=== PATIENT | female | born 1995 | race Caucasian/White ===

== ENCOUNTER 2024-01-24 09:47 | Outpatient (AMB) | payer OTHER, SELFPAY ==
--- NOTE | 2024-01-24 09:49 | MHC.OFFVIS ---
Vital Signs 01/24/24 09:55 Height 5 ft 3 in Weight 287 lb BMI 50.8 BP 112/82 Blood Pressure Location Rt brachial Position Sitting Pulse 98 Pulse Source Pulse Oximeter Pulse Oximetry (%) 98 Oxygen Delivery Method Room Air Intake Visit Reasons: [id number] Intake Note: Patient presents for migraines. Patient has been having migraines since teen years. has taken Imitrex and topiromate but stopped due to not working or not tolerating. sensitivity to light and sound more to light. Allergies iv morphine Allergy (Severe, Uncoded 01/24/24 09:57) Rash Medication List - Last Reconciled 01/24/24 by DONTA Castellon magnesium oxide 400 mg PO BEDTIME 30 days naratriptan take 1/2 - 1 tab at onset of headache; if no relief may repeat 1 tab after at least 4 hrs; max = 2 tabs/24 hrs orally PRN; 30 days riboflavin (vitamin B2) 400 mg PO DAILY 30 days topiramate 1/2 tab bid x's 1 wk, then 1 tab bid x's 1 week, then 1.5 tabs bid orally 2 times a day; 3 days HPI Comments Details: Right-handed 28-yr-old female presents for new pt evaluation of headache disorder. Pt is accompanied by her stepfather, Mariela. Pt reports she developed migraines in her early pre-teen years. Over time, the headaches have become more frequent and severe. She has not previously seen neurology. PMH and ROS are notable for:? General: Wears glasses. Has had weight fluctuation, has had more recent weight gain. Musculoskeletal disorders or injury: Neck- non-radiating, Back pain w/ right sided sciatica- thought to be d/t fell off a 4th floor stairwell railing down through the stairwell railing. Cramps:randomly during the day, w/wo activity- w/ walking/sitting. History of concussion/head injury: Possible concussion during the fall from the stairwell at age 12. Mood d/o: Anxiety, Depression Respiratory d/o: Asthma- activity induced CV: reports episodes of chest pain. Reports father dies at age 60 of sudden [place], mother has had 2 MIs before age 49. Neuro- tingling in bilateral cheeks through ears- not a/w headaches History of syncope- during a bout of appendicitis. GI d/o: GERD- has GI consult scheduled for Sep. Random nausea. 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 Constipation. Clotting or hematology d/o, Endocrine d/o, metabolic d/o, History of seizure or drop attacks. Lifestyle considerations: Sleep routine: Usual bedtime: 1-2am and wake-up time: 6am Sleep difficulties: Endorses: Snoring, Fatigue, fragmented sleep Restless sleep, Leg Cramps- worse at night. Had a home sleep study in the last [address] [facility]- normal. Caffeine use: a lot - 1 large ice coffee a day, 4 cans of pepsi or coke per afternoon/evening, and drinks a lot of water. Substance use: Alcohol- socially, wine cooler at times, mixed drink at times. 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 Has 2 children- dtr 9, son 6yr old. Headache questionnaire:? Previous work-up: none Types of headache disorders: 2 Typical headache characteristics: Headache 1: Prodrome symptoms: Photophobia Aura: sees white dots/blurry vision, or rarely everything goes black- before/during the attack Pain intensity: moderate-severe Location, quality, characteristics: Diffuse pulsating/throbbing pain, mostly in the right frontal and retro-orbital, but also bitemporal or holocranial Associated symptoms: photophobia, phonophobia, allodynia, nausea, vomiting, not right in space dizziness, lightheadedness, fatigue, cognitive difficulties, activity intolerance, yawning. Bending over exacerbates headache. Postdrome: residual exhaustion Triggers: poor fluid intake, poor sleep, stress, weather changes, altitude changes Time of day: No specific time of day- is prone to waking up w/ headache Duration and Frequency: 5 migraine days per week. How does headache impact your life? Tries not to miss work, but misses family activities. Headache 2: Standing up can cause a sudden sharp left or right occipital pain which will trigger a stabbing headache a/w nausea/lightheadedness. This can last 2.5 days, and then tapers off. Occurs once in a while - every other week or once a month. Current acute medication use/interventions: Nothing Current preventative medication use: Nothing Non-pharmacological interventions: Ice, cold showers, rest, peppermint tea. PFSH Surgical History Hx of appendectomy Family History Mother Myocardial infarct HTN (hypertension) Arthritis Lupus Ovarian ca Father Mental disorder Asthma Maternal Grandfather Myocardial infarct Maternal Grandmother Myocardial infarct Paternal Grandfather Diabetes Alzheimer disease Daughter Autism Social History Alcohol intake: current Patient Tobacco Use Status: Former Tobacco user Physical Exam Vital Signs: Last Vital Signs Pulse 98 01/24/24 09:55 BP 112/82 01/24/24 09:55 Pulse Ox 98 01/24/24 09:55 Oxygen Delivery Method Room Air 01/24/24 09:55 BMI result Body Mass Index 50.8 Const Orientation/consciousness: patient oriented x3 Resp Effort & Inspection: normal respiratory effort and able to speak in complete sentences Neuro Other: Palpable tenderness along the right greater occipital nerve distribution Bilateral posterior cervical tightness. Cervical ROM: full, extensions elicits pain into the right subfrontal region Left Spurling: normal Right Spurling: normal. General: patient oriented x3 Cranial nerves: Yes CN's II-XII intact bilaterally Cognition (Neuro): normal cognition Gait exam (Neuro): Normal gait present Motor exam (neuro): 5/5 motor strength present throughout Deep tendon reflexes (DTR's): Right triceps reflex intensity grade: 2+, Left triceps reflex intensity grade: 2+, Rt Biceps (C5, C6): 2+, Left biceps reflex intensity grade: 2+, Right brachioradialis reflex intensity grade: 2+, Left brachioradialis reflex intensity grade: 2+, Right patellar reflex intensity grade: 2+ and Left patellar reflex intensity grade: 2+ Coordination: [id number] test normal, tandem gait normal and Romberg test negative Pupils: Normal pupillary reactivity/response: bilateral Psych Appearance: grossly normal Mental Status: mental status grossly normal Speech and movement: Normal speech and movement present Affect: normal affect Attitude: cooperative Thought process: Normal thought process present Assessment & Plan Assessment & Plan (1) Worsening headaches: Comment: DDx chronic migraine w/ aura, secondary SR, IIH. Code(s): R51.9 - Headache, unspecified Category: Medical (2) Facial paresthesia: Code(s): R20.2 - Paresthesia of skin Category: Medical (3) Occipital neuralgia: Code(s): M54.81 - Occipital neuralgia Category: Medical (4) Obesity, morbid, BMI 50 or higher: Code(s): E66.01 - Morbid (severe) obesity due to excess calories Category: Medical (5) Cervicalgia: Code(s): M54.2 - Cervicalgia Category: Medical Plan Pt advised to undergo: Labs to assess for secondary etiologies of worsening headaches, cramps. C-spine w/ f/ex/ext x-ray Brain MRI w/wo to assess for secondary intracranial etiologies of worsening headaches and facial paresthesias. Cardiology evaluation- to assess for risk for familial CV dz to guide us in determining future tx decisions. Will request previous sleep studies from [facility]. For overall headache management: Optimize good self-care, including but not limited to maintaining a healthy diet, adequate fluid intake, adequate sleep, and engaging in regular physical activity. Track headaches, especially after any treatment regimen changes. Migraine [employer] is one of many headache tracking apps. Information shared on non-pharmacological interventions which may help to alleviate headache attack burden. For light sensitivity: Patient may benefit from trying blue light filtering glasses, green glasses, green light therapy. For occipital region headache: Start PT Future considerations- ON block For acute migraine headache treatment: Discussed importance of taking acute medications at the first sign of headache, however stressed importance of avoiding acute medication overuse (especially with combined headache medications). Trial Naratriptan 2.5mg prn. Potential adverse effects of triptans, including but not limited to nausea, fatigue, chest tightness/tingling (usually passes within a few minutes), medication overuse headaches. Previous acute migraine medication trials: Triptan: Sumatriptan 50mg- helped some but caused out of this world sensation. Acute migraine medication contraindications: Would avoid DHE until cardiology consult completed d/t family h/o heart dz. For headache prevention medication: Preventative medications should be taken routinely as prescribed for best effect, it may take several weeks for full effect to take effect. Start Riboflavin 400mg qam Start Magnesium 400mg qhs Re-trial Topiramate- start 25mg bid x's 1 wk, then 50mg bid x's 1 wk, then 75mg bid. Potential adverse effects of Topiramate, including but not limited to fatigue, cognitive changes, paresthesias (tingling), vision changes, kidney stones. Previous migraine prevention medication trials: Topiramate 25mg bid- ineffective. Migraine prevention medication contraindications: Caution w/ TCAs d/t family h/o cardiac dz. BBs d/t asthma dx. Pt seen in collaboration w/ Dr Jessica Alejandro. Pt to follow-up in 3-4 months or sooner prn. Addendum: Pt completed initial lab results: results notable for marked elevated ESR 64, CRP > 20, elevated ferritin, mildly elevated WBS 12.6 w/ normal neutrophil count. Spoke to pt, she states she has been feeling more tired and has had a decreased appetite since she was seen here on 01/23. She did resume the Topiramate 25mg bid. Notices that soda is tasting flat .otheriwse, she denies fever, resp s/s, urinary s/s, myalgias. Advised her to adjust topiramate to 50mg qhs- in hopes this helps w/ daytime tiredness. Advised to monitor for any s/s infection- fever, urine/resp s/s, etc. Advised to have additional blood work (JUAN JOSE, RF, hep panel, HIV, RPR, UA/C&S) to further assess lab results concerning for acute vs chronic inflammatory process. Note pt's BMI is > 50, however I do not believe this would account for the marked elevation in ESR/CRP seen. Already has cardiology consult scheduled for Apr 2024. 01/24/24 12:31 WBC 12.6 H RBC 4.38 Hgb 13.0 Hct 40.7 MCV 92.9 MCH 29.7 MCHC 31.9 RDW 13.2 Plt Count 368 Immature Gran % (Auto) 0.3 Neut % (Auto) 66.0 Lymph % (Auto) 28.5 [place] % (Auto) 3.3 Eos % (Auto) 1.7 Baso % (Auto) 0.2 Lymph # (Auto) 3.6 [place] # (Auto) 0.4 Eos # (Auto) 0.2 Baso # (Auto) 0.0 Absolute Neuts (auto) 8.3 Absolute Nucleated RBC 0.000 Nucleated RBC % (auto) 0.0 ESR 64 H Sodium 140 Potassium 3.8 Chloride 103 Anion Gap 13 BUN 9 Creatinine 0.78 Estimated GFR > 60 Random Glucose 113 Estimat Average Glucose 108 Hemoglobin A1c % 5.4 Calcium 10.1 Magnesium 1.9 Iron 53 TIBC 274 % Saturation 19 Unsat Iron Binding 221 Ferritin 160 H Total Bilirubin 0.4 AST 14 ALT 12 Alkaline Phosphatase 134 H Total Creatine Kinase 108 C-React Prot High Sens >20.0 H Total Protein 7.8 Albumin 4.1 Vitamin B12 315 Methylmalonic Acid Pending 25-OH Vitamin D Total Pending Folate 7.5 Homocysteine 8.2 TSH 2.99 Orders: Orders TSH reflex Free T4 01/24/24 D64.9 - Anemia, unspecified, R20.2 - Paresthesia of skin, R25.2 - Cramp and spasm, R51.9 - Headache, unspecified, R53.83 - Other fatigue Vitamin B12 and Folate 01/24/24 D64.9 - Anemia, unspecified, R20.2 - Paresthesia of skin, R25.2 - Cramp and spasm, R51.9 - Headache, unspecified, R53.83 - Other fatigue Methylmalonic Acid 01/24/24 D64.9 - Anemia, unspecified, R20.2 - Paresthesia of skin, R25.2 - Cramp and spasm, R51.9 - Headache, unspecified, R53.83 - Other fatigue Homocysteine 01/24/24 D64.9 - Anemia, unspecified, R20.2 - Paresthesia of skin, R25.2 - Cramp and spasm, R51.9 - Headache, unspecified, R53.83 - Other fatigue Ferritin 01/24/24 D64.9 - Anemia, unspecified, R20.2 - Paresthesia of skin, R25.2 - Cramp and spasm, R51.9 - Headache, unspecified, R53.83 - Other fatigue Magnesium 01/24/24 D64.9 - Anemia, unspecified, R20.2 - Paresthesia of skin, R25.2 - Cramp and spasm, R51.9 - Headache, unspecified, R53.83 - Other fatigue Hemoglobin A1c 01/24/24 E66.01 - Morbid (severe) obesity due to excess calories, R20.2 - Paresthesia of skin, R25.2 - Cramp and spasm, R53.83 - Other fatigue XR cervical spine w flex/ext 01/24/24 M54.2 - Cervicalgia, M54.81 - Occipital neuralgia MR head/brain wo/w con 01/24/24 E66.01 - Morbid (severe) obesity due to excess calories, R20.2 - Paresthesia of skin, R51.9 - Headache, unspecified Syphilis Screen Today D72.829 - Elevated white blood cell count, unspecified, R70.0 - Elevated erythrocyte sedimentation rate, R79.82 - Elevated C-reactive protein (CRP) UA CC w/rflx Micro + Cult Today D72.829 - Elevated white blood cell count, unspecified, R70.0 - Elevated erythrocyte sedimentation rate, R79.82 - Elevated C-reactive protein (CRP) Complete Blood Count Auto Diff 01/24/24 D64.9 - Anemia, unspecified, R20.2 - Paresthesia of skin, R25.2 - Cramp and spasm, R51.9 - Headache, unspecified, R53.83 - Other fatigue Comprehensive Met. Panel 01/24/24 D64.9 - Anemia, unspecified, R20.2 - Paresthesia of skin, R25.2 - Cramp and spasm, R51.9 - Headache, unspecified, R53.83 - Other fatigue IRON PROFILE 01/24/24 D64.9 - Anemia, unspecified, R20.2 - Paresthesia of skin, R25.2 - Cramp and spasm, R51.9 - Headache, unspecified, R53.83 - Other fatigue Erythrocyte Sedimentation Rate 01/24/24 D64.9 - Anemia, unspecified, R20.2 - Paresthesia of skin, R25.2 - Cramp and spasm, R51.9 - Headache, unspecified, R53.83 - Other fatigue Creatine Kinase Total 01/24/24 D64.9 - Anemia, unspecified, R20.2 - Paresthesia of skin, R25.2 - Cramp and spasm, R51.9 - Headache, unspecified, R53.83 - Other fatigue CRP High Sensitivity 01/24/24 D64.9 - Anemia, unspecified, R20.2 - Paresthesia of skin, R25.2 - Cramp and spasm, R51.9 - Headache, unspecified, R53.83 - Other fatigue Vitamin D 25-OH (D2 and D3) 01/24/24 D64.9 - Anemia, unspecified, R20.2 - Paresthesia of skin, R25.2 - Cramp and spasm, R51.9 - Headache, unspecified, R53.83 - Other fatigue PT Evaluation and Treatment 01/24/24 M54.2 - Cervicalgia, M54.81 - Occipital neuralgia Hepatitis A,B,C Profile Today D72.829 - Elevated white blood cell count, unspecified, R70.0 - Elevated erythrocyte sedimentation rate, R79.82 - Elevated C-reactive protein (CRP) HIV Ab/Ag Today D72.829 - Elevated white blood cell count, unspecified, R70.0 - Elevated erythrocyte sedimentation rate, R79.82 - Elevated C-reactive protein (CRP) Referrals Cardiology Referral R07.9 - Chest pain, unspecified, Z82.49 - Family history of ischemic heart disease and other diseases of the circulatory system Medications: New naratriptan take 1/2 - 1 tab at onset of headache; if no relief may repeat 1 tab after at least 4 hrs; max = 2 tabs/24 hrs orally PRN; 30 days 12 tabs 6RF migraine headache riboflavin (vitamin B2) 400 mg PO DAILY 30 days 30 tabs 6RF magnesium oxide may hold for loose stools 400 mg PO BEDTIME 30 days 30 tabs 6RF topiramate 1/2 tab bid x's 1 wk, then 1 tab bid x's 1 week, then 1.5 tabs bid orally 2 times a day; 3 days 90 tabs 6RF Coding Level of Care Code New Pt Level 4 (78185) Diagnoses Worsening headaches R51.9 Facial paresthesia R20.2 Occipital neuralgia M54.81 Obesity, morbid, BMI 50 or higher E66.01 Cervicalgia M54.2
[2024-01-24 09:55] VITALS: BP 112/82; PULSE 98; O2SAT 98; BMI 50.8
== END 2024-01-24 11:26 | disposition home or self-care (01) ==
PROVIDERS: PCP Family Medicine; Visit Provider Nurse Practitioner Family
DX: R51.9 Headache, unspecified (principal); R20.2 Paresthesia of skin; M54.81 Occipital neuralgia; E66.01 Morbid (severe) obesity due to excess calories; M54.2 Cervicalgia
CPT/HCPCS: 99204

== ENCOUNTER 2024-01-24 09:47 | Outpatient (REF) | payer OTHER, SELFPAY ==
[2024-01-24 12:33] LABS: MANUAL DIFF FLAG NO
[2024-01-24 13:56] LABS: Basophils Percent Auto 0.2 % (0-2); Eosinophils Absolute Auto 0.2 X10*3/uL (0.0-0.4); Eosinophils Percent Auto 1.7 % (0-4); Hematocrit 40.7 % (37.0-47.0); Imm Gran Abs Auto 0.04 X10*3/uL (0.00-0.03); Imm Gran Pct Auto 0.3 % (0.0-0.4); Lymphocytes Absolute Auto 3.6 X10*3/uL (1.2-4.9); Lymphocytes Percent Auto 28.5 % (20-40); Mean Corpuscular HGB Conc 31.9 g/dl (31.0-35.0); Mean Corpuscular Hemoglobin 29.7 pg (27.0-33.0); Mean Corpuscular Volume 92.9 fL (80.0-98.0); Mean Platelet Volume 11.2 fL (9.4-12.3); Monocytes Absolute Auto 0.4 X10*3/uL (0.1-1.2); Monocytes Percent Auto 3.3 % (2-11); Neutrophils Absolute Auto 8.3 x10*3/uL (2.0-8.3); Platelet Count 368 X10*3/uL (160-400); Red Blood Count 4.38 X10*6/uL (4.20-5.50); Red Cell Distribution Width 13.2 % (11.0-16.0); White Blood Count 12.6 X10*3/uL (4.8-10.8)
[2024-01-24 14:33] LABS: Estimated Average Glucose 108 mg/dL; Hemoglobin A1c % 5.4 % (<6.0)
[2024-01-24 14:35] LABS: Alanine Aminotransferase 12 U/L (0-31); Albumin Level 4.1 g/dL (3.5-5.0); Alkaline Phosphatase 134 U/L (39-117); Anion Gap 13 (12-20); Aspartate Amino Transferase 14 U/L (5-31); Bilirubin Total 0.4 mg/dL (0.0-1.0); Blood Urea Nitrogen 9 mg/dL (9-16); Calcium 10.1 mg/dL (8.4-10.2); Carbon Dioxide 28 mmol/L (22-29); Chloride 103 mmol/L (96-108); Estimated Glomerular Filt Rate > 60; Glucose Random 113 mg/dL (60-115); Iron 53 mcg/dL (30-160); Magnesium 1.9 mg/dL (1.6-2.6); Percent Iron Saturation 19 % (15-50); Potassium 3.8 mmol/L (3.3-5.1); Sodium 140 mmol/L (135-145); Total Iron Binding Capacity 274 mcg/dL (228-428); Total Protein 7.8 g/dL (6.5-8.0); Unsaturated Iron Binding 221 ug/dL
[2024-01-24 14:41] LABS: Erythrocyte Sedimentation Rate 64 MM/HR (0-20)
[2024-01-24 14:58] LABS: Ferritin 160 ng/mL (10-122); TSH reflex Free T4 2.99 uIU/mL (0.32-4.0)
[2024-01-24 15:05] LABS: Folate 7.5 ng/mL (> or = 4.0); Vitamin B12 315 pg/mL (200-900)
[2024-01-25 14:33] LABS: CRP High Sensitivity >20.0 mg/L
[2024-01-25 18:33] LABS: Homocysteine 8.2 umol/L (<10.4)
[2024-01-29 15:43] LABS: Vitamin D 25-OH, D2 <4 ng/mL; Vitamin D 25-OH, D3 21 ng/mL; Vitamin D 25-OH, Total 21 ng/mL (30-100)
[2024-02-01 06:28] LABS: Methylmalonic Acid 125 nmol/L (55-335)
== END 2024-01-24 09:48 | disposition home or self-care (01) ==
LOC: HO.LAB 09:47
PROVIDERS: PCP Family Medicine; Visit Provider Nurse Practitioner Family
DX: D64.9 Anemia, unspecified (principal); R51.9 Headache, unspecified; R20.2 Paresthesia of skin; M54.81 Occipital neuralgia; E66.01 Morbid (severe) obesity due to excess calories; M54.2 Cervicalgia; D72.829 Elevated white blood cell count, unspecified; R70.0 Elevated erythrocyte sedimentation rate; R79.82 Elevated C-reactive protein (CRP); R07.9 Chest pain, unspecified; Z82.49 Family history of ischemic heart disease and other diseases of the circulatory system
CPT/HCPCS: 36415; 80053; 82306; 82550; 82607; 82728; 82746; 83036; 83090; 83540; 83735; 83921; 84443; 85025; 85652; 86141; 99202

== ENCOUNTER 2024-01-28 07:17 | Outpatient (REF) | payer OTHER, SELFPAY | END 2024-01-28 07:18 | disposition home or self-care (01) | LOC: HO.LAB 07:17 | PROVIDERS: Visit Provider Nurse Practitioner Family | DX: Z13.89 Encounter for screening for other disorder (principal) ==

== ENCOUNTER 2024-01-30 07:22 | Outpatient (REF) | payer OTHER, SELFPAY ==
[2024-01-30 07:34] LABS: MANUAL DIFF FLAG NO
[2024-01-30 08:02] LABS: Basophils Percent Auto 0.3 % (0-2); Eosinophils Absolute Auto 0.2 X10*3/uL (0.0-0.4); Eosinophils Percent Auto 1.6 % (0-4); Hematocrit 41.5 % (37.0-47.0); Hemoglobin 13.2 g/dl (12.0-16.0); Imm Gran Abs Auto 0.05 X10*3/uL (0.00-0.03); Imm Gran Pct Auto 0.4 % (0.0-0.4); Lymphocytes Absolute Auto 3.5 X10*3/uL (1.2-4.9); Lymphocytes Percent Auto 30.2 % (20-40); Mean Corpuscular HGB Conc 31.8 g/dl (31.0-35.0); Mean Corpuscular Hemoglobin 29.6 pg (27.0-33.0); Mean Platelet Volume 11.2 fL (9.4-12.3); Monocytes Absolute Auto 0.7 X10*3/uL (0.1-1.2); Monocytes Percent Auto 5.9 % (2-11); Neutrophils Absolute Auto 7.1 x10*3/uL (2.0-8.3); Neutrophils Percent Auto 61.6 % (45-73); Platelet Count 343 X10*3/uL (160-400); Red Blood Count 4.46 X10*6/uL (4.20-5.50); Red Cell Distribution Width 13.3 % (11.0-16.0); White Blood Count 11.5 X10*3/uL (4.8-10.8)
[2024-01-30 08:34] LABS: Rheumatoid Factor < 13.0 IU/mL (<15.0)
[2024-01-30 08:43] LABS: Syphilis Screen Nonreactive (Nonreactive)
[2024-01-30 08:46] LABS: HBS Num1 369.75 mIU/mL (0-7.99); HBc Num1 0.14 S/CO (0.00-0.79); HBsAGNum1 0.24 S/CO (0.00-0.99); HIV AB/AG Nonreactive (Nonreactive); HIV Num 1 0.05 S/CO (0.00-0.99); Hepatitis A Antibody IgM 0.16 Index (0-0.79); Hepatitis B Core Antibody Nonreactive (Nonreactive); Hepatitis B Surface Antigen Negative (Negative); ~HepC Num1 0.05 S/CO (0.00-0.79); ~Hepatitis A Antibody IgM Nonreactive (Nonreactive); ~Hepatitis B Surface Antibody REACTIVE (Nonreactive); ~Hepatitis C Antibody Nonreactive (Nonreactive)
[2024-02-06 14:08] LABS: Anti Nuclear Antibody Screen POSITIVE (NEGATIVE)
== END 2024-01-30 07:23 | disposition home or self-care (01) ==
LOC: HO.LAB 07:22
PROVIDERS: PCP Family Medicine; Visit Provider Nurse Practitioner Family
DX: R70.0 Elevated erythrocyte sedimentation rate (principal); D72.829 Elevated white blood cell count, unspecified; R79.82 Elevated C-reactive protein (CRP)
CPT/HCPCS: 36415; 85025; 86038; 86039; 86431; 86704; 86706; 86709; 86780; 86803; 87340; 87389

== ENCOUNTER 2024-03-29 14:39 | Outpatient (REF) | payer OTHER, SELFPAY ==
--- NOTE | ~2024-03-29 | MR_ITS ---
EXAMINATION: MR BRAIN WITHOUT AND WITH CONTRAST CLINICAL INFORMATION: Paresthesia of the skin. COMPARISON: No relevant prior imaging. TECHNIQUE: Multiplanar MR imaging of the brain was performed without and with contrast. A total of 10 mL Gadavist was utilized for this examination. FINDINGS: Postcontrast images reveal no abnormal intracranial mass or enhancement. There is no intracranial mass effect or midline shift. Lateral and third ventricles are normal. No hydrocephalus. Midline structures including the cervicomedullary junction are normal. No acute bone marrow signal changes. There is no acute territorial infarct. No pathological magnetic susceptibility artifact. Intracranial vascular flow voids are maintained. There are bilateral mastoid effusions. Mild paranasal sinus disease primarily affecting the ethmoid air cells and sphenoid sinus. Globes and orbits are symmetric. MR/MR head/brain wo/w con IMPRESSION: Normal brain MRI. Electronically signed by: Johnathan Carty MD 04/20/2024 03:56 PM EDT
--- NOTE | ~2024-03-29 | XR_ITS ---
EXAMINATION: XR CERVICAL SPINE CLINICAL INFORMATION: Neck pain COMPARISON: None available. TECHNIQUE: 8 views of the cervical spine, inclusive of flexion and extension views, were obtained. FINDINGS: Limited visualization of C7 due to overlying bony and soft tissue structures. Alignment maintained on flexion and extension views. Cervical disc space heights are preserved. Mild spondylosis in the lower cervical spine. XR/XR cervical spine w flex/ext IMPRESSION: Mild spondylosis in the lower cervical spine. Electronically signed by: Oriana Ryan MD 04/24/2024 09:06 AM EDT
[2024-03-29] MEDS: gadobutroL 10 ML VIAL IVPUSH (16:18)
== END 2024-03-29 14:40 | disposition home or self-care (01) ==
LOC: HO.MRI 14:39
PROVIDERS: PCP Family Medicine; Visit Provider Nurse Practitioner Family
DX: M54.2 Cervicalgia (principal); M54.81 Occipital neuralgia; R20.2 Paresthesia of skin; R51.9 Headache, unspecified; E66.01 Morbid (severe) obesity due to excess calories
CPT/HCPCS: 70553; 72052; A9585

== ENCOUNTER 2024-05-02 14:53 | Outpatient (REF) | payer OTHER, SELFPAY ==
[2024-05-02 17:11] LABS: Cholesterol 173 mg/dL (<200); HDL Cholesterol 35 mg/dL (>40); LDL Cholesterol Calculated 118 mg/dL (<100); Triglycerides 104 mg/dL (<150)
[2024-05-04 00:28] LABS: LDL Cholesterol Direct 120 mg/dL (<100)
== END 2024-05-02 14:54 | disposition home or self-care (01) ==
LOC: HO.LAB 14:53
PROVIDERS: PCP Family Medicine; Visit Provider Internal Medicine
DX: R07.9 Chest pain, unspecified (principal); R70.0 Elevated erythrocyte sedimentation rate; R79.82 Elevated C-reactive protein (CRP); E78.2 Mixed hyperlipidemia; Z82.49 Family history of ischemic heart disease and other diseases of the circulatory system
CPT/HCPCS: 36415; 80061; 83721; 93005; 99202

== ENCOUNTER 2024-05-02 14:53 | Outpatient (AMB) | payer OTHER, SELFPAY ==
[2024-05-02 14:57] VITALS: BP 118/68; PULSE 97; BMI 50.0
--- NOTE | 2024-05-02 14:57 | MHC.OFFVIS ---
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 Allergies Seasonal Allergies Allergy (Severe, Verified 05/02/24 15:09) Hives iv morphine Allergy (Severe, Uncoded 01/24/24 09:57) Rash Medication List - Last Reconciled 05/02/24 by Alfonzo Andersen MD cholecalciferol (vitamin D3) 25 mcg PO DAILY 30 days magnesium oxide 400 mg PO BEDTIME 30 days naratriptan take 1/2 - 1 tab at onset of headache; if no relief may repeat 1 tab after at least 4 hrs; max = 2 tabs/24 hrs orally PRN; 30 days riboflavin (vitamin B2) 400 mg PO DAILY 30 days topiramate 1/2 tab bid x's 1 wk, then 1 tab bid x's 1 week, then 1.5 tabs bid orally 2 times a day; 3 days HPI Comments Details: Padma is here for consultation because of family history. She states that her mother had a myocardial infarction before she was 50 years old and father also had a myocardial infarction in his 50s. Hence she is concerned about it. Patient herself does not have any known cardiac issues. She is overweight. She has been this way for a long time. Apparently, she managed to lose weight but then she gained a lot of it back. She gets random chest pains in no specific patterns. Can happen any time. Nonexertional. Even when she is sitting and relaxed, she can feel some sharp chest pains. Hence seems noncardiac. She has elevated CRP, ESR as well as positive JUAN JOSE and hence going to see Rheumatology soon. Apparently mother has lupus. Patient herself does not have any rheumatological diagnosis as yet. ON LICENSE OF [facility] Medical History (Updated 05/02/24 @ 16:41 by Alfonzo Andersen MD) Acid reflux Asthma Migraine Surgical History Hx of appendectomy Family History Mother Myocardial infarct HTN (hypertension) Arthritis Lupus Ovarian ca Father Mental disorder Asthma Maternal Grandfather Myocardial infarct Maternal Grandmother Myocardial infarct Paternal Grandfather Diabetes Alzheimer disease Daughter Autism Social History (Updated 05/02/24 @ 15:13 by Jana Mccullough) Alcohol intake: current Alcohol intake frequency: holidays/special occasions only Patient Tobacco Use Status: Former Tobacco user Review of Systems Const Denies weakness ENT Denies dizziness Card Reports chest pain, Reports chest pain with activity, Denies syncope, Denies rapid heart rate, Denies pedal edema, Denies edema, Denies leg edema, Denies lightheadedness, Reports palpitations, Denies dyspnea, Denies dyspnea on exertion and Denies orthopnea Resp Denies cough, Denies dyspnea and Denies dyspnea on exertion GI Denies hematochezia and Denies change in stool character Musc Denies abnormal gait, Denies muscle cramps, Denies muscle weakness, Denies numbness, Denies radiating pain into limb and Denies tingling Neuro Denies abnormal gait, Denies dizziness, Denies syncope, Denies numbness, Denies tingling and Denies weakness Endo Reports palpitations Physical Exam Vital Signs: Last Vital Signs Pulse 97 05/02/24 14:57 BP 118/68 05/02/24 14:57 BMI result Body Mass Index 50.0 Const General: comfortable and no acute distress Orientation/consciousness: patient oriented x3 HEENT Other: Unremarkable Head: Yes normal to inspection Neck Neck: Yes normal visual inspection Chest Chest palpation & inspection: normal inspection of the chest Resp Auscultation: clear to auscultation bilaterally Cardio Palpation: normal PMI Heart sounds: S1 normal heart sound present, S2 normal heart sound present, no gallops, no murmurs and no rubs GI Palpation (GI): Soft to palpation Back/Spine/Pelvis Other: unremarkable Skin General skin exam: no rashes or lesions noted Neuro General: patient oriented x3 Extrem General: Yes normal to inspection Psych Mental Status: mental status grossly normal Office Procedures EKG Details: EKG with underlying sinus rhythm at 97/Min; nonspecific inferior wall changes; [place] [id number], Complete Assessment & Plan Assessment & Plan (1) Chest pain: Code(s): R07.9 - Chest pain, unspecified Category: Medical (2) Family history of coronary artery disease: Code(s): Z82.49 - Family history of ischemic heart disease and other diseases of the circulatory system Category: Medical (3) Elevated erythrocyte sedimentation rate: Code(s): R70.0 - Elevated erythrocyte sedimentation rate Category: Medical (4) Elevated C-reactive protein (CRP): Code(s): R79.82 - Elevated C-reactive protein (CRP) Category: Medical Plan Atypical sounding chest pain, obesity, positive family history of premature CAD, elevated inflammatory markers as well as positive JUAN JOSE. Chest pain could be musculoskeletal in nature. Pericardial etiology possible from inflammation. We will check an echocardiogram for any effusion. It does not sound anginal. With obesity as well as positive family history, she is at increased risk for coronary issues in the future. We discussed about this today. Main strategy for this would be weight loss. With regard to further workup, we discussed about calcium scoring CT scan. However, patient states that she would rather just lose weight for now and hold off on any testing. In that instance, at least get baseline lipid profile. Based on findings, possible statin use. We will see her back after testing. Orders: Orders Lipid Panel Today E78.5 - Hyperlipidemia, unspecified LDL Cholesterol Direct Today E78.2 - Mixed hyperlipidemia CA echo transthoracic complete Today R07.9 - Chest pain, unspecified Coding Level of Care Code New Pt Level 3 (09186) Diagnoses Chest pain R07.9 Family history of coronary artery disease Z82.49 Elevated erythrocyte sedimentation rate R70.0 Elevated C-reactive protein (CRP) R79.82 CPT Codes EKG - CPT: 11172-[id number], Complete ([id number])
== END 2024-05-02 15:33 | disposition home or self-care (01) ==
PROVIDERS: PCP Family Medicine; Visit Provider Internal Medicine
DX: R07.9 Chest pain, unspecified (principal); Z82.49 Family history of ischemic heart disease and other diseases of the circulatory system; R70.0 Elevated erythrocyte sedimentation rate; R79.82 Elevated C-reactive protein (CRP)
CPT/HCPCS: 93010; 99203

== ENCOUNTER 2024-05-08 12:35 | Outpatient (REF) | payer OTHER, SELFPAY ==
[2024-05-08 14:08] LABS: Appearance Urine Cloudy; Color Urine Yellow; Glucose Urine UA Negative (Negative); Leukocyte Esterase Urine Small (1+) (Negative); Nitrite Urine Negative (Negative); PH 5.5 (5.0-9.0); Specific Gravity - Urine 1.025 (1.005-1.025); UMIC TRIGGER UA YES; Urine Blood Negative (Negative); Urine Ketones Negative (Negative); Urine Protein Negative (Neg-Trace)
[2024-05-08 14:13] LABS: Bacteria Urine 3+ (None Seen); Hyaline Casts Urine 0-2 /LPF (0-2); RBC Urine 0-2 /HPF (0-2)
[2024-05-08 14:22] LABS: C Reactive Protein 3.44 mg/dL (< or = 0.50)
[2024-05-08 14:25] LABS: Creatinine Urine 198.73 mg/dL; Protein/Creatinine Ratio, Ur 0.06 (<0.2); Total Protein Urine Random 12 mg/dL (<12)
[2024-05-08 14:39] LABS: Erythrocyte Sedimentation Rate 82 MM/HR (0-20)
[2024-05-10 14:28] LABS: Prot Elec - Albumin 3.7 g/dL (3.8-4.8); Prot Elec - Alpha1 0.3 g/dL (0.2-0.3); Prot Elec - Alpha2 1.1 g/dL (0.5-0.9); Prot Elec - Beta 1 0.5 g/dL (0.4-0.6); Prot Elec - Beta 2 0.6 g/dL (0.2-0.5); Prot Elec - Gamma 1.4 g/dL (0.8-1.7); Prot Elec - Total Protein 7.5 g/dL (6.1-8.1)
[2024-05-10 19:44] LABS: Cardiolipin IgG Ab <2.0 GPL-U/mL; Cardiolipin IgM Ab 4.1 MPL-U/mL
[2024-05-11 11:44] LABS: Complement C3 174 mg/dL (83-193)
[2024-05-12 13:43] LABS: Anti DNA DS Antibody 1 IU/mL; Antibody to SS-A Antigen <1.0 NEG AI (<1.0 NEG); Antibody to SS-B Antigen <1.0 NEG AI (<1.0 NEG); SM/Ribonucleoprotein Ab <1.0 NEG AI (<1.0 NEG); Smith Protein <1.0 NEG AI (<1.0 NEG)
[2024-05-13 06:59] LABS: Hexagonal Phase Neutralization Negative (Negative); PTT (LAC) Screen 47 sec (<=40)
[2024-05-14 05:29] LABS: DNAds, Crithidia Antibody Negative (Negative)
[2024-05-14 14:29] LABS: IgA 328 mg/dL (47-310); IgG 1528 mg/dL (600-1640); IgM 144 mg/dL (50-300)
[2024-05-15 21:49] LABS: Beta-2 Glycoprotein IgA <2.0 U/mL (<20.0); Beta-2 Glycoprotein IgG <2.0 U/mL (<20.0); Beta-2 Glycoprotein IgM 4.5 U/mL (<20.0)
[2024-05-17 09:44] LABS: Cyclic Citrullinated Peptide <16 UNITS
== END 2024-05-08 12:36 | disposition home or self-care (01) ==
LOC: HO.LAB 12:35
PROVIDERS: PCP Family Medicine; Visit Provider Student in an Organized Health Care Education/Training Program
DX: D68.61 Antiphospholipid syndrome (principal); M32.9 Systemic lupus erythematosus, unspecified; M25.50 Pain in unspecified joint; R76.8 Other specified abnormal immunological findings in serum
CPT/HCPCS: 36415; 81001; 82570; 82784; 84156; 84165; 85597; 85598; 85613; 85652; 85730; 86140; 86146; 86147; 86160; 86200; 86225; 86235; 86255; 86334; 99202

== ENCOUNTER 2024-05-08 12:35 | Outpatient (AMB) | payer OTHER, SELFPAY ==
--- NOTE | 2024-05-08 12:39 | A.OFFVIS_ITS ---
Vital Signs 05/08/24 12:47 Height 5 ft 3 in Weight 281 lb 12.012 oz BMI 49.9 BP 112/68 Blood Pressure Location Rt radial Position Sitting Pulse 96 Pulse Source Pulse Oximeter Pulse Oximetry (%) 99 Oxygen Delivery Method Room Air Intake Visit Reasons: abnormal lab Intake Note: Patient presents for abnormal lab. Allergies Seasonal Allergies Allergy (Severe, Verified 05/08/24 12:42) Hives iv morphine Allergy (Severe, Uncoded 01/24/24 09:57) Rash Medication List - Last Reconciled 05/08/24 by Martin Terry MD acetaminophen ER 650 mg PO TID cetirizine 10 mg PO DAILY chlorhexidine gluconate 0.12% PO cholecalciferol (vitamin D3) 25 mcg PO DAILY 30 days famotidine 20 mg PO BID ibuprofen 800 mg PO TID ipratropium bromide intranasal magnesium oxide 400 mg PO BEDTIME 30 days multivitamin (Daily Multi-Vitamin tablet) 1 tab PO DAILY naratriptan take 1/2 - 1 tab at onset of headache; if no relief may repeat 1 tab after at least 4 hrs; max = 2 tabs/24 hrs orally PRN; 30 days omega 9-jgx-blh-fish oil 1,200 (144-216) mg (Fish Oil) caps PO pantoprazole 40 mg PO DAILY riboflavin (vitamin B2) 400 mg PO DAILY 30 days topiramate 1/2 tab bid x's 1 wk, then 1 tab bid x's 1 week, then 1.5 tabs bid orally 2 times a day; 3 days HPI Comments Details: This is a 28-year-old female who presents for evaluation of positive JUAN JOSE and elevated ESR. This was ordered in the context of migraines. She states that she has had migraines for more than 10 years but they have been more persistent recently. She states that her mother has SLE and fibromyalgia. She states that she has diffuse pain everywhere especially of her hands and feet and associated with tingling and numbness. Patient states that she snores at night. She had a sleep study about 3 years ago, at that time she was around 220 lb. 60 lb less than today. She denies any specific skin rashes. She has not noticed any significant joint swelling. Denies any blood or froth in urine. She had 2 pregnancies in total, 2 children, no abortions or miscarriages. Denies any history of DVT/PE. [facility] Medical History Acid reflux Asthma Migraine Surgical History Hx of appendectomy Family History Mother Myocardial infarct HTN (hypertension) Arthritis Lupus Ovarian ca Father Mental disorder Asthma Maternal Grandfather Myocardial infarct Maternal Grandmother Myocardial infarct Paternal Grandfather Diabetes Alzheimer disease Daughter Autism Social History Alcohol intake: current Alcohol intake frequency: holidays/special occasions only Patient Tobacco Use Status: Former Tobacco user Female Reproductive History Menstrual Total pregnancies: 2 Full term: 2 Review of Systems Const Reports chills, Denies fever(s) and Reports weight gain Eyes Reports dry eyes ENT Reports dry mouth Musc Reports myalgias, Reports arthralgias, Denies joint swelling, Reports numbness and Reports tingling Neuro Reports numbness and Reports tingling Physical Exam Vital Signs: Last Vital Signs Pulse 96 05/08/24 12:47 BP 112/68 05/08/24 12:47 Pulse Ox 99 05/08/24 12:47 Oxygen Delivery Method Room Air 05/08/24 12:47 BMI result Body Mass Index 49.9 Const General: cooperative, healthy appearing and comfortable Nutritional Appearance: obese morbidly obese Orientation/consciousness: patient oriented x3 Limitations: no limitations HEENT Head: Yes normocephalic and Yes atraumatic Mouth: moist mucous membranes Resp Effort & Inspection: normal respiratory effort and able to speak in complete sentences Skin Other: Some hyperpigmentation on her nape Neuro General: patient oriented x3 Extrem Other: Few tender joints in the hands including wrists, MCPs, PIP, DIPs. In the random distribution Multiple fibromyalgia tender points Normal nailfold capillaroscopy Assessment & Plan Assessment & Plan (1) Positive JUAN JOSE (antinuclear antibody): Code(s): R76.8 - Other specified abnormal immunological findings in serum Category: Medical Plan: This is a 28-year-old female who presents for evaluation of a positive JUAN JOSE and elevated ESR in the context of worsening migraines. Per patient, her Mother has SLE and fibromyalgia. On exam today patient has fibromyalgia, however given her young age, positive JUAN JOSE, ongoing migraines and positive family history I will order blood work to screen for underlying autoimmune rheumatic disease. Follow- up in 4-6 weeks Plan I spent 46 minutes reviewing patient's chart, evaluating patient, ordering diagnostic workup, counseling patient and documenting in the chart Orders: Orders Beta-2 Glycoprotein Antibody Today D68.61 - Antiphospholipid syndrome Lupus Anticoagulant Panel Today D68.61 - Antiphospholipid syndrome Anti Extractable Nuclear Ag Today M32.9 - Systemic lupus erythematosus, unspecified Complement C3 Today M32.9 - Systemic lupus erythematosus, unspecified DNA Double Stranded-Crithidia Today M32.9 - Systemic lupus erythematosus, unspecified Protein Creatinine Ratio, Ur Today M32.9 - Systemic lupus erythematosus, unspecified Protein Electrophoresis, Serum Today M32.9 - Systemic lupus erythematosus, unspecified Cyclic Citrullinated Peptide Today M25.50 - Pain in unspecified joint Cardiolipin Antibodies Today D68.61 - Antiphospholipid syndrome Anti DNA DS Antibody Today M32.9 - Systemic lupus erythematosus, unspecified Complement C4 Today M32.9 - Systemic lupus erythematosus, unspecified C Reactive Protein Today M32.9 - Systemic lupus erythematosus, unspecified Erythrocyte Sedimentation Rate Today M32.9 - Systemic lupus erythematosus, unspecified Sjogren's Antibodies Today M32.9 - Systemic lupus erythematosus, unspecified UA w Microscopic Today M32.9 - Systemic lupus erythematosus, unspecified Immunofixation Pnl, Serum Today M32.9 - Systemic lupus erythematosus, unspecified Coding Level of Care Code New Pt Level 4 (43947) Diagnoses Positive JUAN JOSE (antinuclear antibody) R76.8
[2024-05-08 12:47] VITALS: BP 112/68; PULSE 96; O2SAT 99; BMI 49.9
== END 2024-05-08 13:04 | disposition home or self-care (01) ==
LOC: HO.RHE 12:36
PROVIDERS: PCP Family Medicine; Visit Provider Student in an Organized Health Care Education/Training Program
DX: R76.8 Other specified abnormal immunological findings in serum (principal)
CPT/HCPCS: 99204

== ENCOUNTER → 2024-05-30 12:25 | Outpatient (REF) | payer OTHER, SELFPAY ==
--- NOTE | 2024-05-30 12:29 | CA_ITS ---
Transthoracic Echocardiogram Patient (Last, First, Middle): Padma Larson, Gender: Female Date of : 1995 Age: 28 Procedure Date: 05/30/2024 Procedure Type: Transthoracic Echocardiogram Location: OP Height: 160. cm Weight: 127.46 kg BSA: 2.23 m2 Heart Rate: bpm BP: 112 / 68 mmHg Entry Level Mechanical Engineer: SIMA Robledo MD: Alfonzo Andersen MD Data Center Manager: Mitch Holt MD Symptoms: R07.9 - Chest pain, unspecified Study Quality: Fair/Contrast ECG Rhythm: Sinus Conclusions: - Essentially normal study Findings Procedure Information Contrast agent, definity, is being given per protocol without apparent complications. Left Ventricle Normal left ventricular size, thickness, and systolic function. The visually estimated ejection fraction is between 55-60%. Spectral Doppler is indicative of a normal filling pattern. Right Ventricle Normal right ventricular cavity size and systolic function. Atria The left atrium is normal in size. There is no evidence of interatrial shunt. The right atrium was not well visualized. Aortic Valve The aortic valve structure and function is likely normal. There is no aortic valve stenosis. There is no aortic valve regurgitation. Mitral Valve Likely normal mitral valve structure and function. There is no mitral valve regurgitation. There is no mitral valve stenosis. Pulmonic Valve The pulmonic valve was not well visualized. Tricuspid Valve Likely normal tricuspid valve structure and function. There is trace tricuspid valve regurgitation. The right ventricular systolic pressure is normal. The right ventricular systolic pressure is 20 mmHg. Normal right atrial pressure. There is no evidence of pulmonary hypertension. Great Vessels All visible segments of the aorta are normal in size. The pulmonary artery was not well visualized. Venous The inferior vena cava is normal in size and collapses greater than 50% with inspiration. Pericardium/Pleural There is no evidence of pericardial effusion. Prior Study Comparison No prior study available for comparison. Measurements 2D Linear Measurements IVSd: 0.95 0.6-0.9/0.6-1.0 cm LVIDd: 4.41 3.9-5.3/4.2-5.9 cm LVIDd Index: 1.98 2.4-3.2/2.2-3.1 cm/m2 LVIDs: 2.67 2.0-3.6 cm LVPWd: 0.97 0.7-1.1 cm Ao Root: 2.80 2.1-3.5 cm LA Diam: 4.00 2.7-3.8/3.0-4.0 cm LAIDs Index: 1.79 1.5-2.3 cm/m2 LV Mass: 173.71 67-162/88-224 g LV Mass Index: 77.90 43-95/49-115 g/m2 LVOT Diam: 1.90 3.0+(-)1.3 cm 2D Systolic Function EF 4C: 60.00 >55% EF 2C: 58.40 >55% EF BiP: 58.70 >55% Mitral Valve MV Pk E: 0.98 MV PK A: 0.73 MV Decel Time: 243.00 E/A: 1.30 E'Lateral: 12.20 E'Medial: 10.80 E/E' Med: 9.00 E/E' Lat: 8.00 PHT: 71.00 MVA PHT: 3.10 Decel Cocke: 4.01 Aortic Valve AoV Pk Chad: 1.58 AoV Mn Chad: 1.03 AoV VTI: 0.31 AoV Pk Grad: 10.00 Aov Mn Grad: 5.00 JUNIE Cont.VTI: 1.92 LVOT LVOT Pk Chad: 1.04 LVOT Mn Chad: 0.76 LVOT VTI: 0.21 LVOT Pk Grad: 4.00 LVOT Mn Grad: 3.00 LVOT Diam: 1.90 LVOT Area: 2.84 Diastolic Function MV Pk E: 0.98 MV Pk A: 0.73 E/A: 1.30 E'Medial: 10.80 E/E' Med: 9.00 E' Laterial: 12.20 E/E' Lat: 8.00 Right Ventricle TAPSE (mm): 22.60 TVS' Chad: 13.80 Tricuspid Valve TR Pk Chad: 2.05 TR Pk Grad: 17.00 RA Press: 3.00 RVSP: 20.00 Great Vessels Aorta Ao Root-2D: 2.80 2.0-3.7 cm Ao Asc: 3.00 2.1-3.4 cm Ao Arch: 2.50 Updated in Other Vendor System with Status of Final Mitch Holt MD electronically signed on 05/31/2024 3:06:14 PM with status of Final
[2024-05-30 13:13] LABS: MANUAL DIFF FLAG NO
[2024-05-30 13:51] LABS: Basophils Percent Auto 0.2 % (0-2); Eosinophils Absolute Auto 0.3 X10*3/uL (0.0-0.4); Eosinophils Percent Auto 2.2 % (0-4); Hematocrit 38.5 % (37.0-47.0); Hemoglobin 12.4 g/dl (12.0-16.0); Imm Gran Abs Auto 0.05 X10*3/uL (0.00-0.03); Imm Gran Pct Auto 0.4 % (0.0-0.4); Lymphocytes Absolute Auto 4.3 X10*3/uL (1.2-4.9); Lymphocytes Percent Auto 33.9 % (20-40); Mean Corpuscular HGB Conc 32.2 g/dl (31.0-35.0); Mean Corpuscular Hemoglobin 29.2 pg (27.0-33.0); Mean Corpuscular Volume 90.8 fL (80.0-98.0); Monocytes Absolute Auto 0.6 X10*3/uL (0.1-1.2); Monocytes Percent Auto 4.6 % (2-11); Neutrophils Absolute Auto 7.4 x10*3/uL (2.0-8.3); Neutrophils Percent Auto 58.7 % (45-73); Platelet Count 350 X10*3/uL (160-400); Red Blood Count 4.24 X10*6/uL (4.20-5.50); Red Cell Distribution Width 13.6 % (11.0-16.0); White Blood Count 12.7 X10*3/uL (4.8-10.8)
[2024-05-30 14:15] LABS: Alanine Aminotransferase 13 U/L (0-31); Albumin Level 3.8 g/dL (3.5-5.0); Alkaline Phosphatase 122 U/L (39-117); Anion Gap 9 (12-20); Aspartate Amino Transferase 18 U/L (5-31); Bilirubin Total 0.1 mg/dL (0.0-1.0); Blood Urea Nitrogen 11 mg/dL (9-16); Calcium 9.1 mg/dL (8.4-10.2); Carbon Dioxide 26 mmol/L (22-29); Chloride 108 mmol/L (96-108); Estimated Glomerular Filt Rate > 60; Glucose Random 114 mg/dL (60-115); Potassium 3.8 mmol/L (3.3-5.1); Sodium 139 mmol/L (135-145); Total Protein 7.5 g/dL (6.5-8.0)
[2024-06-01 17:18] LABS: Myeloperoxidase Antibody <1.0 AI; Proteinase 3 PR3 Antibodies <1.0 AI
[2024-06-05 21:48] LABS: HLA B27 Negative (Negative)
== END ==
LOC: HO.CARD 12:25
PROVIDERS: PCP Family Medicine; Referring Provider Student in an Organized Health Care Education/Training Program; Visit Provider Internal Medicine
DX: R07.9 Chest pain, unspecified (principal); I77.9 Disorder of arteries and arterioles, unspecified; M45.9 Ankylosing spondylitis of unspecified sites in spine
CPT/HCPCS: 36415; 80053; 85025; 86021; 86812; 93306; Q9957

== ENCOUNTER → 2024-05-30 12:29 | Outpatient (BNV) | payer OTHER, SELFPAY | PROVIDERS: PCP Family Medicine; Referring Provider Student in an Organized Health Care Education/Training Program; Visit Provider Internal Medicine Cardiovascular Disease | DX: R07.9 Chest pain, unspecified (principal); R93.1 Abnormal findings on diagnostic imaging of heart and coronary circulation | CPT/HCPCS: 93306 ==

== ENCOUNTER 2024-06-22 17:32 | Emergency (ER) | payer OTHER, SELFPAY ==
--- NOTE | ~2024-06-22 | XR_ITS ---
EXAMINATION: XR CHEST CLINICAL INFORMATION: cough, shortness of breath COMPARISON: None available. TECHNIQUE: 2 views of the chest were obtained. FINDINGS: No significant abnormality is noted involving the heart, lungs, mediastinum, bony thorax or soft tissues. XR/XR chest 2V IMPRESSION: Unremarkable examination. Electronically signed by: Von Marion MD 06/22/2024 06:30 PM [facility]
[2024-06-22 17:37] VITALS: BP 149/83; PULSE 98; RESP 19; TEMP 36.9; O2SAT 98; BMI 51.2
--- NOTE | 2024-06-22 17:38 | ED_ITS ---
HPI - General Adult General Chief complaint: Upper Respiratory Symptoms Stated complaint: pneumonia, cough Time Seen by Provider: 06/22/24 19:32 Source: patient Mode of arrival: ambulatory Limitations: no limitations History of Present Illness ED Provider: gerard carlos NP HPI narrative: Patient is a 29-year-old female who presents emergency department for evaluation endorsing an intermittent productive cough with yellow phlegm and shortness of breath for 2 weeks. She has some mild discomfort diffusely throughout anterior chest during episodes of coughing. Reports that she was ill sore throat rhinorrhea and congestion earlier on in this illness. She has been taking [id number]-[id number] cold medications without improvement. Admits to a history of asthma as a child requiring frequent usage of an albuterol inhaler. Denies fevers, chills, headache, dizziness, neck pain, neck stiffness, sore throat, nausea, vomiting, abdominal pain, numbness or tingling of the extremities, genitourinary symptoms. Related Data Home Medications ?Medication ?Instructions ?Recorded ?Confirmed acetaminophen 650 mg 650 mg PO TID 05/08/24 05/08/24 tablet,extended release cetirizine 10 mg tablet 10 mg PO DAILY 05/08/24 05/08/24 chlorhexidine gluconate 0.12 % PO 05/08/24 05/08/24 mouthwash famotidine 20 mg tablet 20 mg PO BID 05/08/24 05/08/24 ibuprofen 800 mg tablet 800 mg PO TID 05/08/24 05/08/24 ipratropium bromide 21 mcg (0.03 intranasal 05/08/24 05/08/24 %) nasal spray multivitamin (Daily Multi-Vitamin 1 tab PO DAILY 05/08/24 05/08/24 tablet) omega 4-wax-oxw-fish oil 1,200 mg cap PO 05/08/24 05/08/24 (144 mg-216 mg) capsule (Fish Oil) pantoprazole 40 mg tablet,delayed 40 mg PO DAILY 05/08/24 05/08/24 release Previous Rx's ?Medication ?Instructions ?Recorded magnesium oxide 400 mg (241.3 mg 400 mg PO BEDTIME 30 days #30 tabs 01/24/24 magnesium) tablet naratriptan 2.5 mg tablet See Rx Instructions PO .COMPLEX 01/24/24 PRN migraine headache 30 days #12 tabs riboflavin (vitamin B2) 400 mg 400 mg PO DAILY 30 days #30 tabs 01/24/24 tablet topiramate 50 mg tablet See Rx Instructions PO BID 3 days 01/24/24 #90 tabs cholecalciferol (vitamin D3) 25 25 mcg PO DAILY 30 days #30 caps 02/01/24 mcg (1,000 unit) capsule albuterol sulfate 90 mcg/actuation 2 puff inhalation Q4-6H PRN 06/22/24 aerosol inhaler shortness of breath or wheezing #6.7 grams benzonatate 200 mg capsule 200 mg PO BID PRN cough #14 caps 06/22/24 prednisone 20 mg tablet 40 mg (2 x 20 mg) PO DAILY #6 tabs 06/22/24 Allergies Allergy/AdvReac Type Severity Reaction Status Date / Time Seasonal Allergies Allergy Severe Hives Verified 06/22/24 17:39 iv morphine Allergy Severe Rash Uncoded 06/22/24 17:39 Review of Systems Review of Systems: Yes all other systems are reviewed and are negative PMFSH Past Medical History Attestation statement: The following information was validated with the patient. Source: old records reviewed Medical History Acid reflux Asthma Migraine Surgical History Hx of appendectomy Family History Family History Mother Myocardial infarct HTN (hypertension) Arthritis Lupus Ovarian ca Father Mental disorder Asthma Maternal Grandfather Myocardial infarct Maternal Grandmother Myocardial infarct Paternal Grandfather Diabetes Alzheimer disease Daughter Autism Social History Social History Alcohol intake: current Alcohol intake frequency: holidays/special occasions only Patient Tobacco Use Status: Former Tobacco user Advance Directives: No Advance Directives Information Provided: No Do you have a plan to hurt others: No Plan Physical Exam ED Vital Signs: Vital Signs - 24 hr 06/22/24 17:37 Temperature 98.4 F Pulse Rate 98 Respiratory Rate 19 Blood Pressure 149/83 H Pulse Oximetry 98 Oxygen Delivery Method Room Air BMI result Body Mass Index 51.2 Appearance: Alert.?Oriented to person, place and time. No acute distress.?Normal affect. Eyes: Pupils equal, round and reactive to light.? ENT: TM normal bilaterally. Pharynx normal.?? Neck: Normal inspection.? Neck supple.??No cervical adenopathy CVS: Heart sounds normal. Normal heart rate and rhythm.? Pulses normal.?? Respiratory: No respiratory distress.? Lung sounds with mild expiratory wheezing at the apices anteriorly. ? Abdomen: Soft and non-tender. Normoactive bowel sounds. Skin: Skin warm and dry.? Normal skin color.? ? Extremities: No lower extremity edema.? Neuro: Moves all extremities spontaneously. Sensation intact bilaterally. No motor deficits. Ambulates with normal steady gait. Course Course Course Narrative: RME, this is a rapid medical exam performed by [employer] please refer to primary provider for complete H&P- 29-year-old female with past medical history significant for obesity, fibromyalgia, occipital neuralgia presents for evaluation of cough for the last 2 weeks. She reports some chest pain exquisitely while coughing, she reports she is coughing up yellow mucus jaw plan for chest x-ray, viral swabs. Vital signs are within normal limits in triage Medical Decision Making Medical Decision Making [facility] Narrative: Patient is a 29-year-old female presenting for evaluation of cough and shortness of breath. COVID-19/influenza/RSV testing is negative. CXR is without evidence of consolidation or infiltrate to suggest pneumonia. No significant risk factors to suggest ACS, and her chest pain is strictly during episodes of coughing which makes costochondritis more likely. Wells score with a low risk, low suspicion for pulmonary embolism. Overall she is Well-appearing, nontoxic, afebrile, no tachycardia or tachypnea/hypoxia. Speaking clear full sentences, ambulatory with steady gait. Discussed conservative treatment including rest, hydration, Tylenol/ibuprofen as needed for fever and body aches, saline nasal spray, humidifier, [id number] cold medication. Advised to follow-up with primary care provider as needed, discussed reasons to return back to the emergency department. All questions were answered. Patient discharged home in stable condition. Differential Diagnosis Differential Diagnoses: The differential diagnosis associated with the presentation includes ( See narrative above) Admission/Observation Consideration of admission/observation: Escalation of care including admission/observation considered ( see narrative above) Lab Data [facility] Lab Attestation statement: I reviewed the patient's lab results. ( see narrative above) Independent Interpretation I performed an independent interpretation of an: Plain X-Ray (See narrative above) Radiology Impression Discussion of test interpretation with radiology: I have reviewed the radiologist's reading. Radiologist Impression: XR/XR chest 2V IMPRESSION: Unremarkable examination. External Record Review External record reviewed: Outpatient record Prescription Management I considered prescription management with: Pain Medication ( acetaminophen/ibuprofen) and Other (Albuterol, prednisone, Tessalon) Chronic Conditions Patient?s care impacted by: Other (See narrative above) Discharge Plan Discharge Clinical Impression: Bronchitis Patient Disposition: Home, Self-Care Instructions: Acute Bronchitis (ED) Additional Instructions: Take prednisone daily with food to prevent stomach upset. Use benzonatate/Tessalon Perles as needed for cough. Use albuterol inhaler as needed for shortness of breath, wheezing, persistent coughing episode. Follow-up with your primary care doctor. Chest x-ray today is without evidence of pneumonia, testing for COVID, RSV, and flu were all negative today. You may return with any new or worsening symptoms or concerns Prescriptions: New albuterol sulfate 90 mcg/actuation HFA aerosol inhaler 2 puff inhalation Q4-6H PRN (Reason: shortness of breath or wheezing) Qty: 6.7 0RF prednisone 20 mg tablet 40 mg PO DAILY Qty: 6 0RF benzonatate 200 mg capsule 200 mg PO BID PRN (Reason: cough) Qty: 14 0RF No Action cholecalciferol (vitamin D3) 25 mcg (1,000 unit) capsule 25 mcg PO DAILY 30 Days Qty: 30 6RF naratriptan 2.5 mg tablet See Rx Instructions PO .COMPLEX PRN (Reason: migraine headache) 30 Days Qty: 12 6RF Rx Instructions: take 1/2 - 1 tab at onset of headache; if no relief may repeat 1 tab after at least 4 hrs; max = 2 tabs/24 hrs orally PRN; riboflavin (vitamin B2) 400 mg tablet 400 mg PO DAILY 30 Days Qty: 30 6RF magnesium oxide 400 mg (241.3 mg magnesium) tablet 400 mg PO BEDTIME 30 Days Qty: 30 6RF Rx Instructions: may hold for loose stools topiramate 50 mg tablet See Rx Instructions PO BID 3 Days Qty: 90 6RF Rx Instructions: 1/2 tab bid x's 1 wk, then 1 tab bid x's 1 week, then 1.5 tabs bid orally 2 times a day; pantoprazole 40 mg tablet,delayed release (DR/EC) 40 mg PO DAILY famotidine 20 mg tablet 20 mg PO BID cetirizine 10 mg tablet 10 mg PO DAILY ipratropium bromide 21 mcg (0.03 %) spray,non-aerosol intranasal chlorhexidine gluconate 0.12 % mouthwash PO acetaminophen 650 mg tablet extended release 650 mg PO TID ibuprofen 800 mg tablet 800 mg PO TID multivitamin [Daily Multi-Vitamin] Tablet 1 tab PO DAILY omega 9-yzq-rys-fish oil [Fish Oil] 1,200 (144-216) mg capsule PO Referrals: Physician,Unknown J [Primary Care Provider] - Print Language: German
[2024-06-22 19:48] LABS: Influenza A PCR NEGATIVE (Negative); Influenza B PCR NEGATIVE (Negative); Resp Syncy Virus RNA Qual PCR NEGATIVE (Negative); SARS COV2 PCR INHOUSE NEGATIVE (Negative)
[2024-06-22 20:06] VITALS: BP 149/83; PULSE 98; RESP 19; TEMP 36.9; O2SAT 98
== END 2024-06-22 20:09 | disposition home or self-care (01) ==
PROVIDERS: Physician Assistant; Emergency Provider Emergency Medicine
DX: J40 Bronchitis, not specified as acute or chronic (principal); R05.9 Cough, unspecified; R06.02 Shortness of breath; J02.9 Acute pharyngitis, unspecified; J34.89 Other specified disorders of nose and nasal sinuses; Z79.899 Other long term (current) drug therapy; Z03.818 Encounter for observation for suspected exposure to other biological agents ruled out
CPT/HCPCS: 0241U; 71046; 99282; 99283

== ENCOUNTER 2024-07-02 15:05 | Outpatient (AMB) | payer OTHER, SELFPAY ==
--- NOTE | 2024-07-02 15:19 | MHC.OFFVIS ---
Vital Signs 07/02/24 15:23 Height 5 ft 3 in Weight 284 lb 6.341 oz BMI 50.4 BP 115/92 H Blood Pressure Location Rt brachial Position Sitting Pulse 99 Pulse Source Pulse Oximeter Pulse Oximetry (%) 99 Oxygen Delivery Method Room Air Intake Visit Reasons: JUAN JOSE+ Intake Note: Patient presents for JUAN JOSE+. Allergies Seasonal Allergies Allergy (Severe, Verified 07/02/24 15:22) Hives iv morphine Allergy (Severe, Uncoded 06/22/24 17:39) Rash Medication List - Last Reconciled 07/02/24 by Martin Terry MD acetaminophen ER 650 mg PO TID albuterol sulfate 90 mcg/actuation 2 puffs inhalation Q4-6H PRN benzonatate 200 mg PO BID PRN cetirizine 10 mg PO DAILY chlorhexidine gluconate 0.12% PO cholecalciferol (vitamin D3) 25 mcg PO DAILY 30 days famotidine 20 mg PO BID ibuprofen 800 mg PO TID ipratropium bromide intranasal magnesium oxide 400 mg PO BEDTIME 30 days multivitamin (Daily Multi-Vitamin tablet) 1 tab PO DAILY naratriptan take 1/2 - 1 tab at onset of headache; if no relief may repeat 1 tab after at least 4 hrs; max = 2 tabs/24 hrs orally PRN; 30 days omega 2-uks-sct-fish oil 1,200 (144-216) mg (Fish Oil) caps PO pantoprazole 40 mg PO DAILY prednisone 40 mg (2 x 20 mg) PO DAILY riboflavin (vitamin B2) 400 mg PO DAILY 30 days topiramate 1/2 tab bid x's 1 wk, then 1 tab bid x's 1 week, then 1.5 tabs bid orally 2 times a day; 3 days HPI Comments Details: Patient returns for follow-up after completion of her diagnostic workup. Continues to feel about the same. Initial history: This is a 28-year-old female who presents for evaluation of positive JUAN JOSE and elevated ESR. This was ordered in the context of migraines. She states that she has had migraines for more than 10 years but they have been more persistent recently. She states that her mother has SLE and fibromyalgia. She states that she has diffuse pain everywhere especially of her hands and feet and associated with tingling and numbness. Patient states that she snores at night. She had a sleep study about 3 years ago, at that time she was around 220 lb. 60 lb less than today. She denies any specific skin rashes. She has not noticed any significant joint swelling. Denies any blood or froth in urine. She had 2 pregnancies in total, 2 children, no abortions or miscarriages. Denies any history of DVT/PE. [facility] Medical History Acid reflux Asthma Migraine Surgical History Hx of appendectomy Family History Mother Myocardial infarct HTN (hypertension) Arthritis Lupus Ovarian ca Type 2 diabetes mellitus Father Mental disorder Asthma Maternal Grandfather Myocardial infarct Maternal Grandmother Myocardial infarct Paternal Grandfather Diabetes Alzheimer disease Daughter Autism Social History Alcohol intake: current Alcohol intake frequency: holidays/special occasions only Patient Tobacco Use Status: Former Tobacco user Female Reproductive History Menstrual Total pregnancies: 2 Full term: 2 Review of Systems Const Reports chills, Denies fever(s) and Reports weight gain Eyes Reports dry eyes ENT Reports dry mouth Musc Reports myalgias, Reports arthralgias, Denies joint swelling, Reports numbness and Reports tingling Neuro Reports numbness and Reports tingling Physical Exam Vital Signs: Last Vital Signs Pulse 99 07/02/24 15:23 BP 115/92 H 07/02/24 15:23 Pulse Ox 99 07/02/24 15:23 Oxygen Delivery Method Room Air 07/02/24 15:23 BMI result Body Mass Index 50.4 Const General: cooperative, healthy appearing and comfortable Nutritional Appearance: obese morbidly obese Orientation/consciousness: patient oriented x3 Limitations: no limitations HEENT Head: Yes normocephalic and Yes atraumatic Mouth: moist mucous membranes Resp Effort & Inspection: normal respiratory effort and able to speak in complete sentences Skin Other: Some hyperpigmentation on her nape Neuro General: patient oriented x3 Extrem Other: Few tender joints in the hands including wrists, MCPs, PIP, DIPs. In the random distribution Multiple fibromyalgia tender points Normal nailfold capillaroscopy Assessment & Plan Assessment & Plan (1) Positive JUAN JOSE (antinuclear antibody): Code(s): R76.8 - Other specified abnormal immunological findings in serum Category: Medical Plan: This is a 29-year-old female who presents for evaluation of a positive JUAN JOSE and elevated ESR in the context of diffuse pain. Upon evaluation I do not see any signs suggestive of an autoimmune rheumatic disease. Her JUAN JOSE is 1-80 in a dfs pattern. Comprehensive serology otherwise is normal. Her CRP is elevated but may be within range for her weight. Her clinical picture at this time is consistent with fibromyalgia Discussed management of fibromyalgia with patient. Is a noninflammatory, non-autoimmune central afferent processing disorder leading to a diffuse pain syndrome. I suggested that patient try to address her underlying psychiatric issues, anxiety/depression. I suggested evaluation by a therapist and/or a psychiatrist. Get a sleep study to rule out JOANN. Try to follow sleep hygiene practices. Patient would benefit from increased physical activity, either through formal physical therapy or by joining a gym. Advised patient that she should start activity slowly and increase as tolerated. Consider low-impact exercises such as walking, swimming, aqua therapy stretching, yoga. I provided patient with a booklet on management of fibromyalgia Follow-up with neurology for migraine management Re-evaluate in 6-7 months Plan I spent 16 minutes reviewing patient's chart, evaluating patient, , counseling patient and documenting in the chart Coding Level of Care Code Est Pt Level 3 (74755) Diagnoses Positive JUAN JOSE (antinuclear antibody) R76.8
[2024-07-02 15:23] VITALS: BP 115/92; PULSE 99; O2SAT 99; BMI 50.4
== END 2024-07-02 15:56 | disposition home or self-care (01) ==
PROVIDERS: PCP Family Medicine; Visit Provider Student in an Organized Health Care Education/Training Program
DX: R76.8 Other specified abnormal immunological findings in serum (principal)
CPT/HCPCS: 99213

== ENCOUNTER → 2024-07-02 15:05 | Outpatient (BNVA) | payer OTHER, SELFPAY | PROVIDERS: PCP Family Medicine; Visit Provider Student in an Organized Health Care Education/Training Program | DX: R76.8 Other specified abnormal immunological findings in serum (principal) | CPT/HCPCS: 99212 ==

== ENCOUNTER 2024-07-16 07:29 | Outpatient (AMB) | payer OTHER, SELFPAY ==
--- NOTE | 2024-07-16 07:37 | A.OFFVIS_ITS ---
Vital Signs 07/16/24 07:39 Height 5 ft 3 in Weight 281 lb 2 oz BMI 49.8 BP 124/82 Blood Pressure Location Rt brachial Position Sitting Pulse 98 Pulse Source Pulse Oximeter Pulse Oximetry (%) 97 Oxygen Delivery Method Room Air Intake Visit Reasons: 6 month F/U Accompanied by: Self / Same As Patient Allergies Seasonal Allergies Allergy (Severe, Verified 07/16/24 07:40) Hives iv morphine Allergy (Severe, Uncoded 06/22/24 17:39) Rash Medication List - Last Reconciled 07/16/24 by DONTA Castellon acetaminophen ER 650 mg PO TID albuterol sulfate 90 mcg/actuation 2 puffs inhalation Q4-6H PRN benzonatate 200 mg PO BID PRN cetirizine 10 mg PO DAILY chlorhexidine gluconate 0.12% PO cholecalciferol (vitamin D3) 25 mcg PO DAILY 30 days famotidine 20 mg PO BID ibuprofen 800 mg PO TID ipratropium bromide intranasal magnesium oxide 400 mg PO BEDTIME 30 days multivitamin (Daily Multi-Vitamin tablet) 1 tab PO DAILY naratriptan take 1/2 - 1 tab at onset of headache; if no relief may repeat 1 tab after at least 4 hrs; max = 2 tabs/24 hrs orally PRN; 30 days omega 9-xpx-azv-fish oil 1,200 (144-216) mg (Fish Oil) caps PO pantoprazole 40 mg PO DAILY prednisone 40 mg (2 x 20 mg) PO DAILY riboflavin (vitamin B2) 400 mg PO DAILY 30 days topiramate 1/2 tab bid x's 1 wk, then 1 tab bid x's 1 week, then 1.5 tabs bid orally 2 times a day; 3 days Do you need a note to return to daycare/school/sports/work: No HPI Comments Details: Right-handed 28-yr-old female presents for f/u of migraine, right ON s/s. Patient reports the following interval medical changes: She did have a bought of bronchitis in June and was recently tx'd for a bilateral ear infection. She is waiting on an ENT referral for perception of bilateral, right worse than left, ear decreased hearing, feeling of being underwater, frequent ear popping, and occasional ear pain. Interval workup includes: 03/29/24 MR/MR head/brain wo/w con: Normal 03/29/24 XR/XR cervical spine w flex/ext: Mild spondylosis in the lower cervical spine. 01/24/2024 initial labs were notable initial lab results were notable for marked elevated ESR 64, CRP > 20, elevated ferritin 160. Vitamin-D 21 low. Vitamin B12 low normal 315 with normal methylmalonic acid and homocystine level. 01/30/2024 follow-up lab work was notable for positive JUAN JOSE 1:80 with no ocular, dense fine speckled pattern. Since, patient has had cardiology consult, who advised pt to undergo echocardiogram (I am unable to access results today), lipid panel which showed CHO 173 NL, LDL direct 120 H, LDL calc 118 H, HDL 35L, and to try to lose weight. She has done a [employer] weight loss program before, which was included diet modifications and an exercise plan. She had lost significant weight on this program, however when her father passed she stopped the program and has since gained even more weight back. She is open to restarting the program. She previously had a psychotherapist. She also had rheumatology consult for further evaluation of positive JUAN JOSE- who felt that she has fibromyalgia, and advised her to have a follow-up sleep study. 2022 HST results reviewed, inconclusive. She continues to endorse snoring, Fatigue, fragmented sleep Restless sleep, Leg Cramps- worse at night. Patient was also started on vitamin-D supplement. She has been doing PT, which was helpful. She states her migraines are better, now having less migraines, now having 4 migraine days per month. Can still have some allodynia, especially of her hair is in a ponytail. She can still have an occasional right occipital region shooting pain- wonders if it is triggered by wearing a tight bun at work. She is compliant w/ B2, Mag, and Topamax- and tolerated it well. Denies feeling decreased appetite since starting topiramate, if anything she feels that she is snacking more. Naratriptan helps but does make her very sleepy and thus cannot take when not at home with someone to help her care for her children. 01/24/2024, Initial HPI: Pt reports she developed migraines in her early pre-teen years. Over time, the headaches have become more frequent and severe. She has not previously seen neurology. PMH and ROS are notable for:? General: Wears glasses. Has had weight fluctuation, has had more recent weight gain. Musculoskeletal disorders or injury: Neck- non-radiating, Back pain w/ right sided sciatica- thought to be d/t fell off a 4th floor stairwell railing down through the stairwell railing. Cramps:randomly during the day, w/wo activity- w/ walking/sitting. History of concussion/head injury: Possible concussion during the fall from the stairwell at age 12. Mood d/o: Anxiety, Depression Respiratory d/o: Asthma- activity induced CV: reports episodes of chest pain. Reports father dies at age 60 of sudden PR, mother has had 2 MIs before age 49. Neuro- tingling in bilateral cheeks through ears- not a/w headaches History of syncope- during a bout of appendicitis. GI d/o: GERD- has GI consult scheduled for Sep. Random nausea. 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 Constipation. Clotting or hematology d/o, Endocrine d/o, metabolic d/o, History of seizure or drop attacks. Lifestyle considerations: Sleep routine: Usual bedtime: 1-2am and wake-up time: 6am Sleep difficulties: Endorses: Snoring, Fatigue, fragmented sleep Restless sleep, Leg Cramps- worse at night. Had a home sleep study in the last 3 yrs at [facility] [place]. Caffeine use: a lot - 1 large ice coffee a day, 4 cans of pepsi or coke per afternoon/evening, and drinks a lot of water. Substance use: Alcohol- socially, wine cooler at times, mixed drink at times. 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 Has 2 children- dtr 9, son 6yr old. Headache questionnaire:? Previous work-up: none Types of headache disorders: 2 Typical headache characteristics: Headache 1: Prodrome symptoms: Photophobia Aura: sees white dots/blurry vision, or rarely everything goes black- before/during the attack Pain intensity: moderate-severe Location, quality, characteristics: Diffuse pulsating/throbbing pain, mostly in the right frontal and retro-orbital, but also bitemporal or holocranial Associated symptoms: photophobia, phonophobia, allodynia, nausea, vomiting, not right in space dizziness, lightheadedness, fatigue, cognitive difficulties, activity intolerance, yawning. Bending over exacerbates headache. Postdrome: residual exhaustion Triggers: poor fluid intake, poor sleep, stress, weather changes, altitude changes Time of day: No specific time of day- is prone to waking up w/ headache Duration and Frequency: 5 migraine days per week. How does headache impact your life? Tries not to miss work, but misses family activities. Headache 2: Standing up can cause a sudden sharp left or right occipital pain which will trigger a stabbing headache a/w nausea/lightheadedness. This can last 2.5 days, and then tapers off. Occurs once in a while - every other week or once a month. Current acute medication use/interventions: Nothing Current preventative medication use: Nothing Non-pharmacological interventions: Ice, cold showers, rest, peppermint tea. PFSH Medical History Acid reflux Asthma Migraine Surgical History Hx of appendectomy Family History Mother Myocardial infarct HTN (hypertension) Arthritis Lupus Ovarian ca Type 2 diabetes mellitus Father Mental disorder Asthma Maternal Grandfather Myocardial infarct Maternal Grandmother Myocardial infarct Paternal Grandfather Diabetes Alzheimer disease Daughter Autism Social History Alcohol intake: current Alcohol intake frequency: holidays/special occasions only Patient Tobacco Use Status: Former Tobacco user Physical Exam Const Orientation/consciousness: patient oriented x3 Resp Effort & Inspection: normal respiratory effort and able to speak in complete sentences Neuro General: patient oriented x3 Cranial nerves: Yes CN's II-XII intact bilaterally Cognition (Neuro): normal cognition Gait exam (Neuro): Normal gait present Motor exam (neuro): 5/5 motor strength present throughout Psych Appearance: grossly normal Mental Status: mental status grossly normal Speech and movement: Normal speech and movement present Affect: normal affect Attitude: cooperative Thought process: Normal thought process present Assessment & Plan Assessment & Plan (1) Migraine with aura: Code(s): G43.109 - Migraine with aura, not intractable, without status migrainosus Category: Medical (2) Obesity, morbid, BMI 50 or higher: Code(s): E66.01 - Morbid (severe) obesity due to excess calories Category: Medical (3) Occipital neuralgia: Code(s): M54.81 - Occipital neuralgia Category: Medical (4) Cervicalgia: Code(s): M54.2 - Cervicalgia Category: Medical (5) Fatigue: Code(s): R53.83 - Other fatigue Category: Medical (6) Snoring: Code(s): R06.83 - Snoring Category: Medical (7) Excessive daytime sleepiness: Code(s): G47.19 - Other hypersomnia Category: Medical (8) Sleep difficulties: Code(s): G47.9 - Sleep disorder, unspecified Category: Medical (9) Nocturnal leg cramps: Code(s): G47.62 - Sleep related leg cramps Category: Medical Plan Reviewed: Labs- notable for elevated ESR, CRP, and ferritin, positive JUAN JOSE, low vitamin-D level, low normal vitamin B 12. * Continue vitamin-D supplement. * Will recheck ESR, CRP, ferritin and iron studies, vitamin-D level, vitamin B levels, magnesium C-spine w/ f/ex/ext x-ray- mild lower cervical spondylosis. * Continue PT Brain MRI w/wo- normal Cardiology notes, lipid panel results showing mildly elevated LDL and low HDL. Unable to access recent echocardiogram report. * Reinforced importance adhering to a heart healthy diet engaging in regular physical activity, including 30-45 minutes of cardiovascular exercise at least 5 days a week. * Follow-up with cardiology as scheduled. Rheumatology notes- working diagnosis is fibromyalgia * Encourage patient to increase regular physical activity, as this is been shown to be the most effective treatment for fibromyalgia. * Follow-up with rheumatology as scheduled Patient is advised to have: In-lab PSG to assess for sleep apnea and periodic limb movements of sleep. Weight management consult ENT consult, as ordered by PCP. Future considerations: Referral to psychotherapist to support weight loss efforts. For overall headache management: * Optimize good self-care, including but not limited to maintaining a healthy diet, adequate fluid intake, adequate sleep, and engaging in regular physical activity. * Track headaches, especially after any treatment regimen changes. Migraine [employer] is one of many headache tracking apps. * Information shared on non-pharmacological interventions which may help to alleviate headache attack burden. For light sensitivity: Patient may benefit from trying blue light filtering glasses, green glasses, green light therapy. For occipital region headache: Continue PT Future considerations- ON block For acute migraine headache treatment: Discussed importance of taking acute medications at the first sign of headache, however stressed importance of avoiding acute medication overuse (especially with combined headache medications). May continue Naratriptan 2.5mg Q 4 hours p.r.n.- however uses limited due to patient experiences marked sleepiness from use. Trial Ubrogepant (Ubrelvy)- in hopes this is better tolerated than triptans have been from patient Instructions for Ubrogepant (Ubrelvy) 100mg tab, 1/2 - 1 tab (50-100mg) at onset of headache, may repeat in 2 hours. Max of 2 tabs (200mg) per 24 hours. May adjunct with OTC Tylenol 650mg q 4 hours, Ibuprofen 600mg q 6 hours, or Naproxen 440mg q 12 hrs prn. Potential adverse effects, include but are not limited to fatigue, nausea, dry mouth, constipation Previous acute migraine medication trials: Triptan: Sumatriptan 50mg- helped some but caused out of this world sensation. Acute migraine medication contraindications: Would avoid DHE until cardiology consult completed d/t family h/o heart dz. For headache prevention medication: Preventative medications should be taken routinely as prescribed for best effect, it may take several weeks for full effect to take effect. Continue Riboflavin 400mg qam Continue Magnesium 400mg qhs Increase Topiramate from 75mg bid to 100 mg b.i.d. Potential adverse effects of Topiramate, including but not limited to fatigue, cognitive changes, paresthesias (tingling), vision changes, kidney stones. Previous migraine prevention medication trials: Topiramate 25mg bid- ineffective. Migraine prevention medication contraindications: Caution w/ TCAs d/t family h/o cardiac dz. BBs d/t asthma dx. Will follow-up upon review of above and patient to follow-up in clinic in 6 months or sooner prn. Orders: Orders Vitamin D 25-OH (D2 and D3) Today D72.829 - Elevated white blood cell count, unspecified, E55.9 - Vitamin D deficiency, unspecified, R20.2 - Paresthesia of skin, R25.2 - Cramp and spasm, R53.83 - Other fatigue, R70.0 - Elevated erythrocyte sedimentation rate, R79.82 - Elevated C-reactive protein (CRP), R79.89 - Other specified abnormal findings of blood chemistry Vitamin B3 (Niacin) Today D72.829 - Elevated white blood cell count, unspecified, E55.9 - Vitamin D deficiency, unspecified, R20.2 - Paresthesia of skin, R25.2 - Cramp and spasm, R53.83 - Other fatigue, R70.0 - Elevated erythrocyte sedimentation rate, R79.82 - Elevated C-reactive protein (CRP), R79.89 - Other specified abnormal findings of blood chemistry Vitamin B5 (Pantothenic Acid) Today D72.829 - Elevated white blood cell count, unspecified, E55.9 - Vitamin D deficiency, unspecified, R20.2 - Paresthesia of skin, R25.2 - Cramp and spasm, R53.83 - Other fatigue, R70.0 - Elevated erythrocyte sedimentation rate, R79.82 - Elevated C-reactive protein (CRP), R79.89 - Other specified abnormal findings of blood chemistry Vitamin B6 Today D72.829 - Elevated white blood cell count, unspecified, E55.9 - Vitamin D deficiency, unspecified, R20.2 - Paresthesia of skin, R25.2 - Cramp and spasm, R53.83 - Other fatigue, R70.0 - Elevated erythrocyte sedimentation rate, R79.82 - Elevated C-reactive protein (CRP), R79.89 - Other specified abnormal findings of blood chemistry Ferritin Today D72.829 - Elevated white blood cell count, unspecified, E55.9 - Vitamin D deficiency, unspecified, R20.2 - Paresthesia of skin, R25.2 - Cramp and spasm, R53.83 - Other fatigue, R70.0 - Elevated erythrocyte sedimentation rate, R79.82 - Elevated C-reactive protein (CRP), R79.89 - Other specified abnormal findings of blood chemistry Complete Blood Count Auto Diff Today D72.829 - Elevated white blood cell count, unspecified, E55.9 - Vitamin D deficiency, unspecified, R20.2 - Paresthesia of skin, R25.2 - Cramp and spasm, R53.83 - Other fatigue, R70.0 - Elevated erythrocyte sedimentation rate, R79.82 - Elevated C-reactive protein (CRP), R79.89 - Other specified abnormal findings of blood chemistry Comprehensive Met. Panel Today D72.829 - Elevated white blood cell count, unspecified, E55.9 - Vitamin D deficiency, unspecified, R20.2 - Paresthesia of skin, R25.2 - Cramp and spasm, R53.83 - Other fatigue, R70.0 - Elevated erythrocyte sedimentation rate, R79.82 - Elevated C-reactive protein (CRP), R79.89 - Other specified abnormal findings of blood chemistry CRP High Sensitivity Today D72.829 - Elevated white blood cell count, unspecified, E55.9 - Vitamin D deficiency, unspecified, R20.2 - Paresthesia of skin, R25.2 - Cramp and spasm, R53.83 - Other fatigue, R70.0 - Elevated erythrocyte sedimentation rate, R79.82 - Elevated C-reactive protein (CRP), R79.89 - Other specified abnormal findings of blood chemistry Erythrocyte Sedimentation Rate Today D72.829 - Elevated white blood cell count, unspecified, E55.9 - Vitamin D deficiency, unspecified, R20.2 - Paresthesia of skin, R25.2 - Cramp and spasm, R53.83 - Other fatigue, R70.0 - Elevated e rythrocyte sedimentation rate, R79.82 - Elevated C-reactive protein (CRP), R79.89 - Other specified abnormal findings of blood chemistry Vitamin B12 and Folate Today D72.829 - Elevated white blood cell count, unspecified, E55.9 - Vitamin D deficiency, unspecified, R20.2 - Paresthesia of skin, R25.2 - Cramp and spasm, R53.83 - Other fatigue, R70.0 - Elevated erythrocyte sedimentation rate, R79.82 - Elevated C-reactive protein (CRP), R79.89 - Other specified abnormal findings of blood chemistry Vitamin B1 Today D72.829 - Elevated white blood cell count, unspecified, E55.9 - Vitamin D deficiency, unspecified, R20.2 - Paresthesia of skin, R25.2 - Cramp and spasm, R53.83 - Other fatigue, R70.0 - Elevated erythrocyte sedimentation rate, R79.82 - Elevated C-reactive protein (CRP), R79.89 - Other specified abnormal findings of blood chemistry Magnesium Today D72.829 - Elevated white blood cell count, unspecified, E55.9 - Vitamin D deficiency, unspecified, R20.2 - Paresthesia of skin, R25.2 - Cramp and spasm, R53.83 - Other fatigue, R70.0 - Elevated erythrocyte sedimentation rate, R79.82 - Elevated C-reactive protein (CRP), R79.89 - Other specified abnormal findings of blood chemistry IRON PROFILE Today D72.829 - Elevated white blood cell count, unspecified, E55.9 - Vitamin D deficiency, unspecified, R20.2 - Paresthesia of skin, R25.2 - Cramp and spasm, R53.83 - Other fatigue, R70.0 - Elevated erythrocyte sedimentation rate, R79.82 - Elevated C-reactive protein (CRP), R79.89 - Other specified abnormal findings of blood chemistry RT PSG in-lab sleep study Today E66.01 - Morbid (severe) obesity due to excess calories, G47.62 - Sleep related leg cramps, G47.9 - Sleep disorder, unspecified, R06.83 - Snoring, R53.83 - Other fatigue Referrals Medical Weight Management Referral E66.01 - Morbid (severe) obesity due to excess calories Medications: New ubrogepant (Ubrelvy) take at onset of migraine, may repeat in 2hrs (may take w/ Ibuprofen) 50 - 100 mg (0.5 - 1 x 100 mg) PO ONCE 30 days PRN 16 tabs 3RF migraine headache Changed From topiramate 1/2 tab bid x's 1 wk, then 1 tab bid x's 1 week, then 1.5 tabs bid orally 2 times a day; 3 days 90 tabs 6RF To topiramate 100 mg (2 x 50 mg) PO BID 90 days 360 tabs 1RF Refilled riboflavin (vitamin B2) 400 mg PO DAILY 30 days 30 tabs 6RF magnesium oxide may hold for loose stools 400 mg PO BEDTIME 30 days 30 tabs 6RF Discontinued prednisone Discontinued Reason: Patient Completed Course 40 mg (2 x 20 mg) PO DAILY 6 tabs 0RF Coding Level of Care Code Est Pt Level 4 (52988) Complex EM visit Add On G2211 Diagnoses Migraine with aura G43.109 Obesity, morbid, BMI 50 or higher E66.01 Occipital neuralgia M54.81 Cervicalgia M54.2 Fatigue R53.83 Snoring R06.83 Excessive daytime sleepiness G47.19 Sleep difficulties G47.9 Nocturnal leg cramps G47.62
[2024-07-16 07:39] VITALS: BP 124/82; PULSE 98; O2SAT 97; BMI 49.8
== END 2024-07-16 08:32 | disposition home or self-care (01) ==
PROVIDERS: PCP Family Medicine; Visit Provider Nurse Practitioner Family
DX: G43.109 Migraine with aura, not intractable, without status migrainosus (principal); E66.01 Morbid (severe) obesity due to excess calories; M54.81 Occipital neuralgia; M54.2 Cervicalgia; R53.83 Other fatigue; R06.83 Snoring; G47.19 Other hypersomnia; G47.9 Sleep disorder, unspecified; G47.62 Sleep related leg cramps
CPT/HCPCS: 99214; G2211

== ENCOUNTER → 2024-07-16 07:29 | Outpatient (BNVA) | payer OTHER, SELFPAY | PROVIDERS: PCP Family Medicine; Visit Provider Nurse Practitioner Family | DX: G43.109 Migraine with aura, not intractable, without status migrainosus (principal); G47.19 Other hypersomnia; G47.9 Sleep disorder, unspecified; M54.81 Occipital neuralgia; M54.2 Cervicalgia; E66.01 Morbid (severe) obesity due to excess calories; R06.83 Snoring; Z68.42 Body mass index [BMI] 45.0-49.9, adult | CPT/HCPCS: 99212 ==

== ENCOUNTER 2024-07-24 08:11 | Outpatient (REF) | payer OTHER, SELFPAY ==
[2024-07-24 08:31] LABS: MANUAL DIFF FLAG NO
[2024-07-24 08:59] LABS: Basophils Percent Auto 0.3 % (0-2); Eosinophils Absolute Auto 0.3 X10*3/uL (0.0-0.4); Eosinophils Percent Auto 2.3 % (0-4); Hematocrit 41.5 % (37.0-47.0); Hemoglobin 13.3 g/dl (12.0-16.0); Imm Gran Abs Auto 0.05 X10*3/uL (0.00-0.03); Imm Gran Pct Auto 0.4 % (0.0-0.4); Lymphocytes Absolute Auto 3.3 X10*3/uL (1.2-4.9); Lymphocytes Percent Auto 28.6 % (20-40); Mean Corpuscular Hemoglobin 28.9 pg (27.0-33.0); Mean Platelet Volume 10.7 fL (9.4-12.3); Monocytes Absolute Auto 0.6 X10*3/uL (0.1-1.2); Monocytes Percent Auto 4.8 % (2-11); Neutrophils Absolute Auto 7.4 x10*3/uL (2.0-8.3); Neutrophils Percent Auto 63.6 % (45-73); Platelet Count 384 X10*3/uL (160-400); Red Blood Count 4.61 X10*6/uL (4.20-5.50); Red Cell Distribution Width 13.7 % (11.0-16.0); White Blood Count 11.7 X10*3/uL (4.8-10.8)
[2024-07-24 09:28] LABS: Appearance Urine Clear; Color Urine Dark Yellow; Glucose Urine UA Negative (Negative); Leukocyte Esterase Urine Small (1+) (Negative); Nitrite Urine Positive (Negative); Specific Gravity - Urine 1.025 (1.005-1.025); UMIC TRIGGER UACC YES; Urine Blood Negative (Negative); Urine Ketones Negative (Negative); Urine Protein Negative (Neg-Trace)
[2024-07-24 09:39] LABS: Bacteria Urine 1+ (None Seen); Hyaline Casts Urine 0-2 /LPF (0-2); RBC Urine 0-2 /HPF (0-2); UACC Culture Trigger YES; WBC Urine 0-5 /HPF (0-5)
[2024-07-24 09:41] LABS: Alanine Aminotransferase 16 U/L (0-31); Alkaline Phosphatase 125 U/L (39-117); Anion Gap 9 (12-20); Aspartate Amino Transferase 19 U/L (5-31); Bilirubin Total 0.3 mg/dL (0.0-1.0); Blood Urea Nitrogen 14 mg/dL (9-16); Calcium 9.1 mg/dL (8.4-10.2); Carbon Dioxide 24 mmol/L (22-29); Chloride 111 mmol/L (96-108); Estimated Glomerular Filt Rate > 60; Glucose Random 88 mg/dL (60-115); Iron 41 mcg/dL (30-160); Magnesium 2.2 mg/dL (1.6-2.6); Percent Iron Saturation 14 % (15-50); Potassium 4.1 mmol/L (3.3-5.1); Sodium 140 mmol/L (135-145); Total Iron Binding Capacity 298 mcg/dL (228-428); Unsaturated Iron Binding 257 ug/dL
[2024-07-24 09:43] LABS: Erythrocyte Sedimentation Rate 67 MM/HR (0-20)
[2024-07-24 09:58] LABS: Ferritin 135 ng/mL (10-122)
[2024-07-24 09:59] LABS: Folate 10.8 ng/mL (> or = 4.0); Vitamin B12 382 pg/mL (200-900)
[2024-07-25 10:39] LABS: CRP High Sensitivity >20.0 mg/L
[2024-07-28 12:58] LABS: Vitamin D 25-OH, D2 <4 ng/mL; Vitamin D 25-OH, D3 20 ng/mL; Vitamin D 25-OH, Total 20 ng/mL (30-100)
[2024-07-30 13:43] LABS: Vitamin B1 13 nmol/L (8-30)
[2024-07-31 17:38] LABS: Vitamin B6 6.6 ng/mL (2.1-21.7)
[2024-08-01 16:03] LABS: Nicotinamide <20 ng/mL (see note); Vit B3 - Nicotinic Acid <20 ng/mL (see note); Vitamin B5 (Pantothenic Acid) <=40 ng/mL (<275)
== END 2024-07-24 08:12 | disposition home or self-care (01) ==
LOC: HO.LAB 08:11
PROVIDERS: Visit Provider Nurse Practitioner Family
DX: E55.9 Vitamin D deficiency, unspecified (principal); R79.82 Elevated C-reactive protein (CRP); R70.0 Elevated erythrocyte sedimentation rate; D72.829 Elevated white blood cell count, unspecified; R79.89 Other specified abnormal findings of blood chemistry; R25.2 Cramp and spasm; R20.2 Paresthesia of skin; R53.83 Other fatigue
CPT/HCPCS: 36415; 80053; 81001; 82306; 82607; 82728; 82746; 83540; 83735; 84207; 84425; 84591; 85025; 85652; 86141; 87086

== ENCOUNTER → 2024-08-01 19:30 | Outpatient (REF) | payer OTHER, SELFPAY | LOC: HO.SL 19:30 | PROVIDERS: PCP Family Medicine; Visit Provider Nurse Practitioner Family | DX: G47.62 Sleep related leg cramps (principal); G47.9 Sleep disorder, unspecified | CPT/HCPCS: 95810 ==

== ENCOUNTER → 2024-08-01 21:36 | Outpatient (BNV) | payer OTHER, SELFPAY | PROVIDERS: PCP Family Medicine; Visit Provider Psychiatry & Neurology Neurology | DX: R06.83 Snoring (principal) | CPT/HCPCS: 95810 ==

== ENCOUNTER → 2024-08-02 10:15 | Outpatient (BNVA) | payer OTHER, SELFPAY | PROVIDERS: PCP Family Medicine; Visit Provider Physician Assistant Surgical ==

== ENCOUNTER 2024-08-23 14:07 | Outpatient (AMB) | payer OTHER, SELFPAY ==
--- OUTSIDE RECORDS SUMMARY | 2024-08-23 14:11 | XMS_ITS | Clinical Summary ---
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 Active omeprazole (PriLOSEC) [address] capsule Take 20 mg by mouth before breakfast. Do not crush or chew. Active sertraline (Zoloft) 100 MG tablet Take by mouth. Activ e EPINEPHrine (Adrenalin) 0.1 % nasal solution 0.5 mL 1 (one) time. Active topiramate (Topamax) 25 MG tablet Take 25 mg by mouth 2 times daily. Active halobetasol (UltraVATE) 0.05 % cream Apply topically 2 times daily. Active Sod Fluoride-Potas sium Nitrate 1.1-5 % paste [place] teeth for 2 minutes, morning and night. Spit, do not rinse. Do not eat or drink anything for 30 minutes following brushing. 112 g 3 4 Active chlorhexidine (Peridex) 0.12 % solution Swish 15 mL morning and night for 1 minute. Spit, do not swallow. Do not eat or drink for 30 minutes following use. 473 mL 4 Active acetaminophen (Tylenol 8 Hour) 650 MG ER tablet TAKE 1 TABLET BY MOUTH EVERY 8 HOURS IF NEEDED FOR MODERATE PAIN FOR 10 DAYS DO NOT CRUSH/CHEW/SPLIT 30 tablet 4 Active Active Problems Problem Noted Date Diagnosed Date Dental caries 03/08/2024 Missing teeth, acquired 03/08/2024 Dental calculus 05/26/2023 Dental caries on smooth surface limited to ename l 05/26/2023 Acute pulpitis 05/26/2023 Encounters Date Type Department Care Team Description 06/25/2024 Refill [facility] [address] [place] [address] Rudy Estes DDS from Last 3 Months Social History Tobacco Use Types Packs/Day Years Used Date Smoking Tobacco: Never Passive Smoke Exposure: Never Smokeless Tobacco: Never Tobacco Cessation:Counseling Given: No Alcohol Use Standard Drinks/Week Comments Defer 0 (1 standard drink = 0.6 oz pur e alcohol) Comments Unknown Sex and Gender Information Value Date Recorded Sex Assigned at Female 05/26/2023 10:04 AM EST Legal Sex Female 10:01 AM EST Gender Identity Female 05/26/2023 10:04 AM EST Sexual Orientation Straight 05/26/2023 10 :04 AM EST Last Filed Vital Signs Vital Sign Reading Time Taken Comments Blood Pressure 130/74 04/26/2024 3:18 PM EDT Pulse - - Temperature - - Respiratory Rate - - Oxygen Saturation - - Inhaled Oxygen Concentration - - Weight - - Height - - Body Mass Index - - Plan of Treatment Upcoming Encounters Date Type Department Care Team (Late st Contact Info) Description 10/26/2024 3:00 PM EDT Office Visit [facility] [address] [place] [address] RosalieTaylor [address] [place] [address] Health Maintenance Due Date Last Done Comments Depression Screening 1995 HIV Screening 1995 Lipid Panel 1995 SDOH Screening 1995 Alcohol/Substance Use Screening 2007 Family Planning (PISQ) 2010 Hepatitis C Screening 2013 Pneumococcal Vaccine: Pediatrics (0 to 5 Years) and At-Risk Patients (6 to 49) Years) (1 of 2 - PCV) 2014 Pap Smear 2016 COVID-19 Vaccine ( season) 2024 04/23/2021, 10/22/2020, 10/01/2020 Influenza Vaccine (#1) 2024 , 04/15/2021, 04/14/2021, Additional history exists Dental Oral Exam 09/08/2024 03/08/2024 Dental Prophylaxis 10/26/2024 04/26/2024 Dental X-Ray: Bitewings 03/09/2025 03/08/2024 Tobacco Screening 04/26/2025 04/26/2024 Dental X-Ray: Full Mouth 03/09/2027 03/08/2024, 05/11 DTaP/Tdap/Td Vaccines (13 - Td or Tdap) 07/27/2027 07/27/2017, 03/21/2017, 03/21/2017, Additional history exists Zoster Vaccines (1 of 2) 2045 RSV Patients and Patients Aged 60 years or older (1 - 1-dose 75+ series) 2070 HIB Vaccines Completed 02/20/2006, 02/08, 08/05/2005, Additional history exists IPV Vaccines Completed 02/20/2006, 12/09, 08/05/2005, Additional history exists Hepatitis A Vaccines Completed 04/15/2009, 02/26/20 08 HPV Vaccines Completed 08/20/2009, 12/2008, 02/26/2008 Meningococcal Vaccine Aged Out 07/24/2013 , 02/26/2008, 02/26/2008 No longer eligible based on patient's age to complete this topic Hepatitis B Vaccines Completed 08/14/2020, 02/20/2020, 01/23/2020, Additional history exists RSV under 20 months Aged Out No longe r eligible based on patient's age to complete this topic Rotavirus Vaccines Aged Out No longer eligible based on patient's age to complete this topic Procedures Procedure Name Priority Date/Time Associated Diagnosis Comments PROPHYLAXIS - ADULT Routine 04/26/2024 3 :00 PM EDT Dental calculus Missing teeth, acquired Decalcification, teeth INTRAORAL - COMPLETE SERIES OF RADIOGRAPHIC IMAGES Routine 03/08/2024 8:00 AM EDT COMPREHENSIVE ORAL EVALUATION - NEW OR ESTABLISHED PATIENT Routine 03/08/2024 8:00 AM EDT from Last 3 Months or Most Recently Relevant to Health Maintenance Insurance [address] [place] [address] [facility] ST[facility] ADULT
--- OUTSIDE RECORDS SUMMARY | 2024-08-23 14:11 | XMS_ITS | Encounter Summary ---
Author Organization [facility] Address [address] [place] [address] Care Team Providers Care Stock Blender Name Role Phone Nichol Rich MD Primary Care Provider Reason for Referral * Consultation (Routine) - Authorized Specialty Diagnoses / Procedures Referred By Shay freedman Referred To Contact Otolaryngology Diagnoses Ear popping, bilateral Other recurrent acute nonsuppurative otitis media, unspecified laterality Jean Claude Santos PA [address] [place] [address] Phone: tel: fax: [facility] [address] [place] [address] Phone: tel: fax: Referral ID Status Reason Start Date Expiration Date Visits Requested Visits Authorized [id number] Authorized Specialty Services Required 07/24/2024 07/24/2025 1 1 Reason for Visit * Reason Comments Annual Exam Encounter Details Date Type Department Care Team (Latest Contact Info) Description 07/23/2024 2:00 PM EST Office Visit Adult Medicine - [address] [address] Jean Claude Santos PA [address] [place] [address] Adult general medical examination (Primary Dx); Ear popping, bilateral; Other migraine without status migrainosus, not intractable; Other recurrent acute nonsuppurative otitis media, unspecified laterality Social History Tobacco Use Types Packs/Day Years Used Date Smoking Tobacco: Former Cigarettes Q uit: 09/12/2020 Smokeless Tobacco: Never Tobacco Cessation:Counseling Given: Not Answered Alcohol Use Standard Drinks/Week Comments Yes 2 (1 standard drink = 0.6 oz pur e alcohol) Housing Instability Answer Date Recorde d Are you worried that in the next 2 months you may not have stable housing? Patient declined 07/16/2024 Food Access & Nutrition Answer Date Rec orded Do you have access to a vari ety of food including fruits and vegetables? Patient declined 07/16/2024 Health Literacy Answer Date Recorded How often do you need to hav e someone help you when you read instructions, pamphlets, or other written material from your doctor or pharmacy? Patient declined 07/16/2024 Caregiver: How often do you need to have someone help you when you read instructions, pamphlets, or other written material from your doctor or pharmacy? Not on file 025 Financial Risk Answer Date Recorded How hard is it for you to pa y for the very basics like food, housing, medical care, and air conditioning / heating? Patient declined 07/16/2024 Transportation Answer Date Recorded Has the lack of transportati on kept you from meetings, work, or from getting things needed for daily living? Patient declined 07/16/2024 Has the lack of transportati on kept you from medical appointments or from getting medications? Patient declined 07/16/2024 Social Isolation Answer Date Recorded How often do you feel lonely or isolated from those around you? Patient declined 07/16/2024 Food Risk Answer Date Recorded Within the past 12 months we worried whether our food would run out before we got money to buy more. Patient declined 025 Within the past 12 months th e food we bought just didn't last and we didn't have money to get more. Patient declined 12/2024 Dependent Care Answer Date Recorded Do you need help finding or paying for care for your loved ones. For example, childbirth educator or elderly care for an older adult? Patient declined 07/16/2024 Education Answer Date Recorded Do you think completing more education or training, like finishing a GED, going to college, or learning a trade, would be helpful for you? Patient declined 07/16/2024 Employment and Income Answer Date Recor ded During the last four weeks, have you been actively looking for work? Patient declined 07/16/2024 Living Situation Answer Date Recorded What is your living situation? 0 07/16/2024 Comments No Sex and Gender Information Value Date Recorded Sex Assigned at Not on file Legal Sex Female 4:33 PM EST Gender Identity Not on file Sexual Orientation Not on file documented as of this encounter Last Filed Vital Signs Vital Sign Reading Time Taken Comments Blood Pressure 104/79 07/23/2024 2:01 PM EST Pulse 96 07/23/2024 2:01 PM EST Temperature 36.7 ??C (98.1 ??F) 07/23/2024 2:01 PM ES T Respiratory Rate - - Oxygen Saturation - - Inhaled Oxygen Concentration - - Weight 129 kg (284 lb) 07/23/2024 2:01 PM EST Height 160 cm (5' 3 ) 07/23/2024 2:01 PM EST Body Mass Index 50.31 07/23/2024 2:01 PM EST documented in this encounter Ordered Prescriptions Prescription Sig Dispense Quantity Refills Last Filled Start Date End Date triamcinolone (NASACORT) 55 mcg nasal inhalerIndications :Ear popping, bilateral Administer 2 sprays into each nostril 1 (one) time each day. 10.8 mL 1 07/24/2024 documented in this encounter Progress Notes * BJ Cevallos - 07/23/2024 2:00 PM ESTAddended by: JEAN CLAUDE SANTOS on: 07/24/2024 07:20 AM Modules accepted: Orders * BJ Cevallos - 07/23/2024 2:00 PM EST CHIEF COMPLAINT: Annual Exam IDENTIFIER: Padma Larson is a 29 y.o. old female. HPI: I am seeing Padma today for a physical exam. Seeing endocrine Dr Woodruff for fibromyalgia. Reports not on any medications for this, they are monitoring. Seeing neurologist for migraines now, currently on Topamax 50mg bid. Seeing Ramila Fu at [facility]. They are waiting for prior authorization for Ubrelvy. She also has naratriptan to take as needed for migraines. Has upcoming sleep study ordered by neurology. Also sounds like patient was referred to weight management and is pending follow-up for this. Still having chronic issues with ear popping. Uses Flonase daily and has tried ipratropium nasal spray. Nothing has worked. She does have a lot of sinus pressure and pain. Preventative Care: Dental- UTD Vision- UTD Tdap- UTD Influenza- Declines Pap Smear- UTD ROS: GENERAL: Negative for malaise, significant weight loss and fever HEENT: See HPI NECK: Negative for lumps, goiter, pain, and significant neck swelling RESPIRATORY: No cough, wheezing or shortness of breath CARDIOVASCULAR: Negative for chest pain, leg swelling and palpitations BREAST: No lumps, discharge, pain or change in skin GI: Negative for abdominal discomfort, changes in bowel habits, blood in stool or black stools : Negative for dysuria, frequency, and incontinence DIRECTOR OF BUSINESS APPLICATIONS: Negative for abnormal vaginal bleeding and abnormal vaginal discharge MUSCULOSKELETAL: Negative for joint pain or swelling, back pain and muscle pain. SKIN: No lesions, rash, or itching PSYCH: No sleep disturbances, depression or major stressors HEMATOLOGY/LYMPHOLOGY: No prolonged bleeding, easy bruising, or swollen lymph nodes ENDOCRINE: Negative for cold or heat intolerance, polyuria, polydipsia and goiter NEURO: No persistent headache, fainting, seizures, strokes, TIAs, weakness, numbness or tingling The remainder of review of systems is noncontributory. PAST MEDICAL HISTORY: Patient Active Problem List Diagnosis Date Noted Severe episode of recurrent major depressive disorder, without psychotic features ([facility]) 07/06/2022 Chest pain in adult 06/25/2021 Costochondritis 06/25/2021 Vitiligo 08/15/2020 Asthma 01/16/2020 Migraine 01/16/2020 SOCIAL HISTORY: Social History Tobacco Use Smoking status: Former Current packs/day: 0.00 Types: Cigarettes Quit date: 09/12/2020 Years since quittin.8 Smokeless tobacco: Never Substance Use Topics Alcohol use: Yes Alcohol/week: 2.0 standard drinks of alcohol Types: 2 Standard drinks or equivalent per week FAMILY HISTORY: Family Status Relation Name Status Mother Alive Father Sister Alive Sister Alive Sister Alive Brother Alive Brother Alive Brother Alive MGM MGF PGM Alive PGF Daughter Alive Son Alive Neg Hx (Not Specified) No partnership data on file Family History Problem Relation Name Age of Onset Heart attack Mother 44 T2DM, HTN, RA, lupus, ovarian cyst Ovarian cancer Mother Diabetes Mother Mental illness Father asthma Other (Other: heart attack) Father Depression Sister Other (Other: Myasthenia gravis) Sister Other (Other: Thyroid cancer) Sister Asthma Sister Asthma Brother ADHD Heart attack Maternal Grandmother 42 Heart attack Maternal Grandfather Diabetes Paternal Grandmother heart problems Diabetes Paternal Grandfather alzheimers, heart problems Asthma Daughter autism Learning disabilities Son Breast cancer Neg Hx Uterine cancer Neg Hx Cervical cancer Neg Hx ACTIVE MEDICATIONS: Outpatient Medications Marked as Taking for the 07/23/24 encounter (Office Visit) with BJ Cevallos Medication Sig Dispense Refill acetaminophen (TYLENOL 8 HOUR) 650 mg 8 hr tablet PLEASE SEE ATTACHED FOR DETAILED DIRECTIONS kwpyuylhfw-pcstvsfpftdfs-ugnlotss (FIORICET, ESGIC) 50-325-40 mg per tablet Take 1 tablet by mouth. chlorhexidine (PERIDEX) 0.12 % solution SWISH 15 ML MORNING AND NIGHT FOR 1 MINUTE. SPIT OUT DONT EAT OR DRINK FOR 30 MINS FOLLOWING USE cholecalciferol (VITAMIN D-3) 25 mcg (1,000 unit) capsule Take 1 capsule (1,000 Units total) by mouth 1 (one) time each day. docusate sodium (COLACE) 100 mg capsule Take 1 capsule (100 mg total) by mouth. EPINEPHrine (EpiPen 2-Nikolas) 0.3 mg/0.3 mL injection Inject 0.3 mL (0.3 mg total) as directed. etonogestrel-eluting contraceptive device (Nexplanon) 68 mg implant subdermal implant Inject 1 eachunder the skin. famotidine (PEPCID) 20 mg tablet Take 1 Tablet by mouth 2 times daily as needed for Heartburn. ibuprofen (ADVIL,MOTRIN) 400 mg tablet Take 2 tablets (800 mg total) by mouth. ipratropium (ATROVENT) 21 mcg (0.03 %) nasal spray Administer 2 sprays into affected nostril(s). magnesium aspart,citrate,oxide (Triple Magnesium Complex) 400 mg magnesium capsule Take by mouth. methocarbamoL (ROBAXIN) 750 mg tablet Take 1 tablet (750 mg total) by mouth. metoclopramide (REGLAN) 10 mg tablet Take 1 tablet (10 mg total) by mouth. multivit-min/iron/folic acid/K (ADULTS MULTIVITAMIN ORAL) Take by mouth. naratriptan (AMERGE) 2.5 mg tablet Take 1 tablet (2.5 mg total) by mouth. omega-3 acid ethyl esters (LOVAZA) 1 gram capsule Take by mouth. pantoprazole (PROTONIX) 40 mg EC tablet Take 1 Tablet by mouth daily. Take in am on empty stomach, wait 30 mins and then eat to activate the medication riboflavin (VITAMIN B2) 400 mg tablet Take by mouth. topiramate (TOPAMAX) 50 mg tablet Take 1 tablet (50 mg total) by mouth 2 (two) times a day. ALLERGIES: Levonorgestrel-ethinyl estrad and Morphine PHYSICAL EXAM: Blood pressure 104/79, pulse 96, temperature 36.7 ??C (98.1 ??F), temperature source Temporal, height 1.6 m (63 ), weight 127 kg (281 lb). Body mass index is 49.78 kg/m??. BMI is greater than 25.0 (above the normal range) - see Plan APPEARANCE: Alert and in no acute distress, Normal, cooperative, morbidly obese EYES: PERRLA, conjunctiva and sclera normal EARS: External ears normal. Canals clear. TMs normal. MOUTH/THROAT: no erythema, lesions, or exudates NECK: Neck supple, no adenopathy, thyroid symmetric and of normal size HEART: RRR with normal S1 and S2, no murmurs, no gallops, no JVD appreciated LUNG: clear to auscultation bilaterally LYMPH NODES: grossly normal ABDOMEN: Bowel sounds normoactive, no bruits and soft, non-tender, without organomegaly or palpablemasses BACK: no pain to palpation and good flexion and extension EXTREMITIES: Extremities warm and well perfused without clubbing, cyanosis, or edema NEURO: Awake, alert and oriented x 3 and reflexes symmetrical SKIN: Skin color, texture, turgor normal. No rashes or lesions. LABS/IMAGING: Pending IMPRESSION: 1. Adult general medical examination 2. Ear popping, bilateral 3. Other migraine without status migrainosus, not intractable PLAN: 1. Health maintenance: The patient presented for an evaluation of general health. As part of this visit, we reviewed the following issues, which are considered an essential part of preventative health in this age group: - Cervical cancer testing every 1-3 years - patient is up-to-date - Blood pressure annual screening performed - Cholesterol screening every five years - ordered - Nutritional and exercise counseling - patient advised to pursue at least 30 minutes of exercise most days of the week, limit portion sizes, eat breakfast, and avoid eating after dinner - Counseling of injury prevention including fire prevention, smoke alarms and seat belt usage - Screening for depression - over the past TWO WEEKS, been bothered by little INTEREST or PLEASURE in doing things or by feeling DOWN, DEPRESSED, or HOPELESS? No - Screening for domestic abuse - Prevention of and/or testing for infectious diseases, which may include Chlamydia, Gonorrhea, Syphilis, HIV, Hepatitis C and Tuberculosis - advice about STD prevention provided - One time hepatitis C screening in all adults - Education about skin cancer - Recommendations about immunizations - patient is due for Influenza immunization but defers this - Preconception counseling - see Substance & Sexuality section of medical record and contraception counseling provided - Screening for substance abuse (including tobacco, alcohol, and recreational drugs) - see Substance & Sexuality section of medical record - Did you have a dental visit in the last 12 months? Yes - Did you have a dental problem in the last 6 months? No Nonfasting labs ordered for today, follow-up recommendations when labs obtained. Keep follow-up with neurology in regards to migraines. Keep follow-up with endocrinology in regards to fibromyalgia. Advised we will get a sinus x-ray today to see if there is any underlying issue contributing to herears popping. Could consider a different nasal spray or ENT referral afterwards. May need hearing evaluation. Follow-up in 6 months or return sooner if needed. Orders Placed This Encounter Procedures CBC and differential Standing Status: Future Standing Expiration Date: 07/23/2025 Vitamin D 25 hydroxy Standing Status: Future Standing Expiration Date: 07/23/2025 Comprehensive metabolic panel Standing Status: Future Standing Expiration Date: 07/23/2025 Lipid panel with reflex to direct LDL Standing Status: Future Standing Expiration Date: 07/23/2025 Thyroid stimulating hormone with reflex to free t4 and free t3 Standing Status: Future Standing Expiration Date: 07/23/2025 BJ Cevallos on 07/23/2024 at 2:27 PM EST documented in this encounter Plan of Treatment Upcoming Encounters Date Type Department Care Team (Late st Contact Info) Description 01/21/2025 2:30 PM EDT Office Visit Adult Medicine - [facility] [address] [place] [address] Nichol Rich MD [address] [place] [address] Scheduled Referrals Name Type Priority Associated Diagnoses Orde r Schedule Ambulatory referral to ENT Outpatient Referral Routine Ear popping, bilateral Other recurrent acute nonsuppurative otitis media, unspecified laterality Expected: 07/24/2024, Expires: 07/24/2025 documented as of this encounter Results * XR Paranasal Sinuses 3+ Views (07/23/2024 3:04 PM EST) Anatomical Region Laterality Modality Head and Neck Radiographic [place] [facility] 07/23/2024 6:14 PM EST Impressions 07/23/2024 6:14 PM EST Paranasal sinuses appear clear. -------- FINAL REPORT -------- Dictated By: Neville Brown Dictated Date: 07/23/2024 18:14 ET Assigned Physician: Neville Brown Reviewed and Electronically Signed By: Neville Brown Signed Date: 07/23/2024 18:14 ET Workstation ID: [id number] Transcribed By: Self Edit Transcribed Date: 07/23/2024 18:14 ET Narrative 07/23/2024 6:14 PM EST XR PARANASAL SINUSES 3+ VIEWS Reason: sinus headache Comparison: None FINDINGS: No displaced fractures. ??Paranasal sinuses appear clear. Procedure Note Neville Brown MD - 07/23/2024 XR PARANASAL SINUSES 3+ VIEWS Reason: sinus headache Comparison: None FINDINGS: No displaced fractures. Paranasal sinuses appear clear. IMPRESSION: Paranasal sinuses appear clear. -------- FINAL REPORT -------- Dictated By: Neville Brown Dictated Date: 07/23/2024 18:14 ET Assigned Physician: Neville Brown Reviewed and Electronically Signed By: Neville Brown Signed Date: 07/23/2024 18:14 ET Workstation ID: [id number] Transcribed By: Self Edit Transcribed Date: 07/23/2024 18:14 ET Jean Claude LORENZO IMG XR PROCEDURES Final Resul t * Thyroid stimulating hormone with reflex to free t4 and free t3 (07/23/2024 2:50 PM EST) Pathologist [facility] TSH 3.26 0.40 - 4.00 mcIU/mL LAB CHEMISTRY METHOD 07/23/2024 6:39 PM EST [facility] Blood Venous blood specimen / Unknown Venipuncture / Unknown 07/23/2024 2:50 PM EST 07/23/2024 2:50 PM EST Jean Claude LORENZO LAB BLOOD ORDERABLES Final Re sult [facility] [address] [place] [address], [place] [phone] * (ABNORMAL) Lipid panel with reflex to direct LDL (07/23/2024 2:50 PM EST) Pathologist [facility] Cholesterol 153 0 - 200 mg/dL LAB CHEMISTRY METHOD 07/23/2024 6:33 PM EST [facility] Triglycerides 164(H) 0 - 150 mg/dL LAB CHEMISTRY METHOD 07/23/2024 6:33 PM EST [facility] HDL 34(L) >=40 mg/dL LAB CHEMISTRY METHOD 07/23/2024 6:33 PM EST [facility] LDL Calculated 86 0 - 100 mg/dL LAB CHEMISTRY METHOD 07/23/2024 6:33 PM EST [facility] VLDL Cholesterol Karri 32.8 mg/dL LAB CHEMISTRY METHOD 07/23/2024 6:33 PM EST [facility] Non HDL Chol. (LDL+VLDL) 119 <145 mg/dL LAB CHEMISTRY METHOD 07/23/2024 6:33 PM [facility] Chol/HDL Ratio 4.5(H) 0.0 - 4.4 LAB CHEMISTRY METHOD 07/23/2024 6:33 PM [facility] Blood Venous blood specimen / Unknown Venipuncture / Unknown 07/23/2024 2:50 PM EST 07/23/2024 2:50 PM EST us Jean Claude LORENZO LAB BLOOD ORDERABLES Final Re sult [facility] [address] [place] [address], [place] [phone] * (ABNORMAL) Comprehensive metabolic panel (07/23/2024 2:50 PM EST) Sodium 138 133 - 145 mmol/L LAB CHEMISTRY METHOD 07/23/2024 6:33 PM [facility] Potassium 4.2 3.5 - 5.5 mmol/L LAB CHEMISTRY METHOD 07/23/2024 6:33 PM [facility] Chloride 107 96 - 110 mmol/L LAB CHEMISTRY METHOD 07/23/2024 6:33 PM [facility] CO2 25 21 - 32 mmol/L LAB CHEMISTRY METHOD 07/23/2024 6:33 PM [facility] Anion Gap 6 3 - 11 LAB CHEMISTRY METHOD 07/23/2024 6:33 PM [facility] Glucose 88 70 - 100 mg/dL LAB CHEMISTRY METHOD 07/23/2024 6:33 PM [facility] BUN 11 5 - 25 mg/dL LAB CHEMISTRY METHOD 07/23/2024 6:33 PM [facility] Creatinine 0.79 0.50 - 1.10 mg/dL LAB CHEMISTRY METHOD 07/23/2024 6:33 PM [facility] eGFR 104 >=60 mL/min/1. 73m2 LAB CHEMISTRY METHOD 07/23/2024 6:33 PM [facility] Comment:Calculation based on the??Chronic Kidney Disease Epidemiology Collaboration (CKD-EPI) equation refit??without adjustment for race. BUN/Creatinine Ratio 13.9 LAB CHEMISTRY METHOD 07/23/2024 6:33 PM [facility] Calcium 9.1 8.5 - 10.5 mg/dL LAB CHEMISTRY METHOD 07/23/2024 6:33 PM [facility] AST (SGOT) 16 10 - 42 unit/L LAB CHEMISTRY METHOD 07/23/2024 6:33 PM [facility] ALT (SGPT) 18 10 - 60 unit/L LAB CHEMISTRY METHOD 07/23/2024 6:33 PM [facility] Alkaline Phosphatase 133(H) 42 - 121 unit/L LAB CHEMISTRY METHOD 07/23/2024 6:33 PM [facility] Total Protein 7.7 6.0 - 8.0 g/dL LAB CHEMISTRY METHOD 07/23/2024 6:33 PM [facility] Albumin 3.5 3.2 - 5.0 g/dL LAB CHEMISTRY METHOD 07/23/2024 6:33 PM [facility] Total Bilirubin 0.2 0.0 - 1.4 mg/dL LAB CHEMISTRY METHOD 07/23/2024 6:33 PM [facility] Blood Venous blood specimen / Unknown Venipuncture / Unknown 07/23/2024 2:50 PM EST 07/23/2024 2:50 PM EST us Jean Claude LORENZO LAB BLOOD ORDERABLES Final Re sult [facility] [address] [place] [address], * (ABNORMAL) Vitamin D 25 hydroxy (07/23/2024 2:50 PM EST) Vit D, 25-Hydroxy 23.1(L) 30.0 - 80.0 ng/mL LAB CHEMISTRY METHOD 07/23/2024 6:39 PM EST [facility] Blood Venous blood specimen / Unknown Venipuncture / Unknown 07/23/2024 2:50 PM EST 07/23/2024 2:50 PM EST us Jean Claude LORENZO LAB BLOOD ORDERABLES Final Re sult [facility] [address] [place] [address], [place] [phone] documented in this encounter Visit Diagnoses Diagnosis Adult general medical examination- Primary Unspecified general medical examination Ear popping, bilateral Other migraine without status migrainosus, not intractable Other recurrent acute nonsuppurative otitis media, unspecified laterality Ear popping, bilateral documented in this encounter Discontinued Medications Medication Sig Discontinue Reason Start Date End Da te azithromycin (ZITHROMAX) 250 mg tablet Take 1 tablet (250 mg total) by mouth. 08/20/2018 07/23/2024 amoxicillin (AMOXIL) 500 mg tablet Take 2 tablets (1,000 mg total) by mouth. 01/14/2018 07/23/2024 omeprazole (PriLOSEC) [address] capsule Take 1 Capsule by mouth daily as needed (Acid reflux.). 04/23/2024 07/23/2024 documented as of this encounter Historical Medications * This list may reflect changes made after this encounter. phenazopyridine (PYRIDIUM) 100 mg tablet Take 1 tablet (100 mg total) by mouth 3 (three) times a day if needed for bladder spasms. ubrogepant (Ubrelvy) 100 mg tablet Take 1 tablet (100 mg total) by mouth 1 (one) time. nitrofurantoin (MACRODANTIN) 100 mg capsule Take by mouth 2 (two) times a day. chlorhexidine (PERIDEX) 0.12 % solution SWISH 15 ML MORNING AND NIGHT FOR 1 MINUTE. SPIT OUT DONT EAT OR DRINK FOR 30 MINS FOLLOWING USE 03/08/2024 added in this encounter Additional Health Concerns Assessment Noted Time PHQ-9 Depression Total Score: 5 07/16/19 25 12:29 PM EST documented as of this encounter Care Teams Stock Blender Relationship Specialty Start Date End Date Nichol Rich MD [address] [place] [id number] PCP - General Internal Medicine 04/07/22 documented as of this encounter
--- OUTSIDE RECORDS SUMMARY | 2024-08-23 14:11 | XMS_ITS | Encounter Summary ---
Author Organization [employer] [facility] Address [address] [place] [address] [address] [place] [address] Care Team Providers Care Traffic Rate Clerk Name Role Phone Unavailable Primary Care Provider Unavailabl e Reason for Visit * Reason Comments Med Refill Encounter Details Date Type Department Care Team (Late st Contact Info) Description 06/25/2024 Refill [facility] [address] [place] [address] Rudy Estes DDS [address] [place] [address] Social History Tobacco Use Types Packs/Day Years Used Date Smoking Tobacco: Never Passive Smoke Exposure: Never Smokeless Tobacco: Never Alcohol Use Standard Drinks/Week Comments Defer 0 (1 standard drink = 0.6 oz pur e alcohol) Comments Unknown Sex and Gender Information Value Date Recorded Sex Assigned at Female 05/26/2023 10:04 AM EST Legal Sex Female 10:01 AM EST Gender Identity Female 05/26/2023 10:04 AM EST Sexual Orientation Straight 05/26/2023 10 :04 AM EST documented as of this encounter Miscellaneous Notes * Telephone Encounter - Rudy Estes DDS - 06/26/2024 7:35 AM EST Approving, but needs appt for additional refills. documented in this encounter Plan of Treatment Upcoming Encounters Date Type Department Care Team (Late st Contact Info) Description 10/26/2024 3:00 PM EDT Office Visit [facility] [address] [place] [address] Taylor Wiggins [address] [place] [address] documented as of this encounter Visit Diagnoses Not on filedocumented in this encounter
--- OUTSIDE RECORDS SUMMARY | 2024-08-23 14:11 | XMS_ITS | Encounter Summary ---
Author Organization [facility] Address [address] [place] [address] Care Team Providers Care Lab Instructor Name Role Phone Nichol Rich MD Primary Care Provider Encounter Details Date Type Department Care Team (Latest Contact Info) Description 07/23/2024 2:55 PM EST - 07/23/2024 11:59 PM [facility] Hospital Encounter [facility] [address] [place] [address] Ear popping, bilateral Discharge Disposition: Home or Self Care Social History Tobacco Use Types Packs/Day Years Used Date Smoking Tobacco: Former Cigarettes Q uit: 09/12/2020 Smokeless Tobacco: Never Alcohol Use Standard Drinks/Week Comments Yes 2 [...] care for your loved ones. For example, child care team lead or elderly care for an older adult? [...] on file documented as of this encounter Medications at Time of Discharge acetaminophen (TYLENOL 8 HOUR) 650 mg 8 hr tablet PLEASE SEE ATTACHED FOR DETAILED DIRECTIONS 05/26/2023 butalbital-acetamin ophen-caffeine (FIORICET, ESGIC) 50-325-40 mg per tablet Take 1 tablet by mouth. 09/10/2022 chlorhexidine (PERIDEX) 0.12 % solution SWISH 15 ML MORNING AND NIGHT FOR 1 MINUTE. SPIT OUT DONT EAT OR DRINK FOR 30 MINS FOLLOWING USE 03/08/2024 cholecalciferol (VITAMIN D-3) 25 mcg (1,000 unit) capsule Take 1 capsule (1,000 Units total) by mouth 1 (one) time each day. 02/01/2024 docusate sodium (COLACE) 100 mg capsule Take 1 capsule (100 mg total) by mouth. 02/06/2016 EPINEPHrine (EpiPen 2-Nikolas) 0.3 mg/0.3 mL injection Inject 0.3 mL (0.3 mg total) as directed. 11/30/2022 etonogestrel-elutin g contraceptive device (Nexplanon) 68 mg implant subdermal implant Inject 1 each under the skin. 03/20/2024 famotidine (PEPCID) 20 mg tablet Take 1 Tablet by mouth 2 times daily as needed for Heartburn. 05/04/2024 ibuprofen (ADVIL,MOTRIN) 400 mg tablet Take 2 tablets (800 mg total) by mouth. 09/21/2017 ipratropium (ATROVENT) 21 mcg (0.03 %) nasal spray Administer 2 sprays into affected nostril(s). 10/10/2023 magnesium aspart,citrate,oxid e (Triple Magnesium Complex) 400 mg magnesium capsule Take by mouth. methocarbamoL (ROBAXIN) 750 mg tablet Take 1 tablet (750 mg total) by mouth. 05/15/2018 metoclopramide (REGLAN) 10 mg tablet Take 1 tablet (10 mg total) by mouth. 09/10/2022 multivit-min/iron/f olic acid/K (ADULTS MULTIVITAMIN ORAL) Take by mouth. naratriptan (AMERGE) 2.5 mg tablet Take 1 tablet (2.5 mg total) by mouth. nitrofurantoin (MACRODANTIN) 100 mg capsule Take by mouth 2 (two) times a day. omega-3 acid ethyl esters (LOVAZA) 1 gram capsule Take by mouth. pantoprazole (PROTONIX) 40 mg EC tablet Take 1 Tablet by mouth daily. Take in am on empty stomach, wait 30 mins and then eat to activate the medication 05/04/2024 phenazopyridine (PYRIDIUM) 100 mg tablet Take 1 tablet (100 mg total) by mouth 3 (three) times a day if needed for bladder spasms. riboflavin (VITAMIN B2) 400 mg tablet Take by mouth. topiramate (TOPAMAX) 50 mg tablet Take 1 tablet (50 mg total) by mouth 2 (two) times a day. triamcinolone (NASACORT) 55 mcg nasal inhalerIndications: Ear popping, bilateral Administer 2 sprays into each nostril 1 (one) time each day. 10.8 mL 1 07/24/2024 ubrogepant (Ubrelvy) 100 mg tablet Take 1 tablet (100 mg total) by mouth 1 (one) time. documented as of this encounter Discharge Disposition Disposition Code Departure Means Destination Home or Self Care documented in this encounter Plan of Treatment Upcoming Encounters Date Type Department Care Team (Late st Contact Info) Description 01/21/2025 2:30 PM EDT Office Visit Adult Medicine [facility] [address] [place] [address] Nichol Rich MD [address] [place] [address] documented as of this encounter Procedures Procedure Name Priority Date/Time Associated Diagnosis Comments XR PARANASAL SINUSES 3+ VIEWS Routine 07/23/2024 3:04 PM EST Ear popping, bilateral documented in this encounter Results * XR Paranasal Sinuses [...] Signed Date: 07/23/2024 18:14 ET Workstation ID: [id number] Transcribed By: Self Edit Transcribed Date: 07/23/2024 [...] Signed Date: 07/23/2024 18:14 ET Workstation ID: [id number] Transcribed By: Self Edit Transcribed Date: 07/23/2024 18:14 ET Jean Claude LORENZO IMG XR PROCEDURES Final Resul t documented in this encounter Visit Diagnoses Diagnosis Ear popping, bilateral documented in this encounter Additional Health Concerns Assessment Noted Time PHQ-9 Depression Total Score: 5 07/16/19 25 12:29 PM EST documented as of this encounter Care Teams Lab Instructor Relationship Specialty Start Date End Date Nichol Rich MD [address] [place] [id number] PCP - General Internal Medicine 04/07/22 documented as of this encounter
--- OUTSIDE RECORDS SUMMARY | 2024-08-23 14:11 | XMS_ITS | Clinical Summary ---
Author Organization [facility] [address] [facility] Address [address] [place] [address] Phone Care Team Providers Care Finish Saw Operator Name Role Phone Nichol Rich MD Primary Care Provider Allergies Active Allergy Reactions Criticality Noted Date Comments Levonorgestrel-Ethinyl Estrad Hives 04/09/2022 Allergic to cold weather Morphine 10/04/2023 Burning sensation Medications acetaminophen (TYLENOL 8 HOUR) 650 mg 8 hr tablet PLEASE SEE ATTACHED FOR DETAILED DIRECTIONS 3 Active butalbital-acetam inophen-caffeine (FIORICET, ESGIC) 50-325-40 mg per tablet Take 1 tablet by mouth. 3 Active cetirizine (ZyrTEC) 10 mg tablet Take 1 tablet (10 mg total) by mouth. 3 Active cholecalciferol (VITAMIN D-3) 25 mcg (1,000 unit) capsule Take 1 capsule (1,000 Units total) by mouth 1 (one) time each day. 4 Active docusate sodium (COLACE) 100 mg capsule Take 1 capsule (100 mg total) by mouth. 6 Active EPINEPHrine (EpiPen 2-Nikolas) 0.3 mg/0.3 mL injection Inject 0.3 mL (0.3 mg total) as directed. 3 Active etonogestrel-elut ing contraceptive device (Nexplanon) 68 mg implant subdermal implant Inject 1 each under the skin. 4 Active ibuprofen (ADVIL,MOTRIN) 400 mg tablet Take 2 tablets (800 mg total) by mouth. 8 Active ipratropium (ATROVENT) 21 mcg (0.03 %) nasal spray Administer 2 sprays into affected nostril(s). 4 11/04/19 25 Active magnesium aspart,citrate,ox catrachito (Triple Magnesium Complex) 400 mg magnesium capsule Take by mouth. Active methocarbamoL (ROBAXIN) 750 mg tablet Take 1 tablet (750 mg total) by mouth. 8 Active metoclopramide (REGLAN) 10 mg tablet Take 1 tablet (10 mg total) by mouth. 3 Active naratriptan (AMERGE) 2.5 mg tablet Take 1 tablet (2.5 mg total) by mouth. Active riboflavin (VITAMIN B2) 400 mg tablet Take by mouth. Activ e topiramate (TOPAMAX) 50 mg tablet Take 1 tablet (50 mg total) by mouth 2 (two) times a day. Active multivit-min/iron /folic acid/K (ADULTS MULTIVITAMIN ORAL) Take by mouth. Activ e famotidine (PEPCID) 20 mg tablet Take 1 Tablet by mouth 2 times daily as needed for Heartburn. 4 Active omega-3 acid ethyl esters (LOVAZA) 1 gram capsule Take by mouth. Activ e pantoprazole (PROTONIX) 40 mg EC tablet Take 1 Tablet by mouth daily. Take in am on empty stomach, wait 30 mins and then eat to activate the medication 4 Active chlorhexidine (PERIDEX) 0.12 % solution SWISH 15 ML MORNING AND NIGHT FOR 1 MINUTE. SPIT OUT DONT EAT OR DRINK FOR 30 MINS FOLLOWING USE 4 Active nitrofurantoin (MACRODANTIN) 100 mg capsule Take by mouth 2 (two) times a day. Active ubrogepant (Ubrelvy) 100 mg tablet Take 1 tablet (100 mg total) by mouth 1 (one) time. Active phenazopyridine (PYRIDIUM) 100 mg tablet Take 1 tablet (100 mg total) by mouth 3 (three) times a day if needed for bladder spasms. Active ergocalciferol (VITAMIN D-2) 1,250 mcg (50,000 unit) capsuleIndication s:Vitamin D deficiency Take 1 capsule (50,000 Units total) by mouth 1 (one) time per week. 12 capsule 5 10/17/19 25 Active triamcinolone (NASACORT) 55 mcg nasal inhalerIndication s:Ear popping, bilateral Administer 2 sprays into each nostril 1 (one) time each day. 10.8 mL 1 5 Active Active Problems Problem Noted Date Diagnosed Date Severe episode of recurrent major depressive disorder, without psychotic features 07/06/2022 Chest pain in adult 06/25/2021 Costochondritis 06/25/2021 Vitiligo 08/15/2020 Overview (05/04/2024): Biopsy 08/15/20- No sx, diagnosed on AG Last Assessment & Plan: Continue to use Mycolog prn. Asthma 01/16/2020 Migraine 01/16/2020 Encounters Date Type Department Care Team Description 07/23/2024 2:55 PM EST - 07/23/2024 11:59 PM EST Hospital Encounter Xray - [address] [phone] Ear popping, bilateral Discharge Disposition: Home or Self Care 07/23/2024 2:00 PM EST Office Visit Adult [address] [address] Jean Claude Mann PA Adult general medical examination (Primary Dx); Ear popping, bilateral; Other migraine without status migrainosus, not intractable; Other recurrent acute nonsuppurative otitis media, unspecified laterality 06/12/2024 Telephone Adult [address] [address] Nichol Rich MD progress note for PT from Last 3 Months Immunizations Name Administration Dates Next Due DTaP (Infanrix) 6wks to less than 7yo ,09/10/1996,02/21/1996,12/20,1995 OApC-ZDS-ZJA (Pentacel) 2mo to less than 5yo 02/20/2006,08/05/2005,09/10/1996,12/20 H1N1 Inj Preservative Free 08/20/2009 HPV, Quadrivalent 08/20/2009,04/15/2009,02/26/20 08 Hep A, Unspecified 04/15/2009,02/26/2008 Hepatitis B (Sghhtao-B-Ixskj , Recombivax HB-Adult) 19yo and older 08/14/2020,02/20/2020,01/23/2020 Hepatitis B Pediatric (Enger ix B; Recombivax HB) to less than 20 yo 02/21/1996,1995,1995 IPV Inactivated polio (Ipol) 6wks and older 12/20/2005,07/22/1999,02/21/1996,08/05 Influenza Quadravalent, MDCK , 0.5ml, preservative free (Flucelvax) 6mo and older 04/22/2023,04/04/2020,04/25/2017 Influenza Quadrivalent, 0.5m l, preservative free (Fluarix; FluLaval; Fluzone) ages 6mo and older (Afluria) 3yo and older 04/14/2021 Influenza trivalent, 0.5mL, preservative free (Fluarix; FluLaval; Fluzone) ages 6mo and older (Afluria) 3 years and older 04/15/2021,04/14/2021 Influenza trivalent, with pr eservative (Fluzone; Afluria) 6mo and older 04/19/2014,03/20/2013,05/25/2011,07/14 Influenza, Unspecified 04/22/2023,04/15/2021, MMR, measles mumps and rubel la Live (Priorix; M-M-R II) 12mo and older 04/03/2021,03/03/2021,07/22/1999,06/06 Meningococcal MCV4P 02/26/2008 Meningococcal Polysaccharide 07/24/2013 Td Tetanus diptheria (Tdvax) 7yo and older 03/21/2017 Tdap Tetanus diptheria acell ular pertussis (Boostrix; Adacel) 7yo and older 07/27/2017,03/29/2014,02/26/2008 Varicella live (Varivax) 12m o and older 02/26/2008,09/10/1996 Surgical History Surgery Date Site/Laterality Comments APPENDECTOMY 02/2016 PROCEDURE: HISTORICAL APPENDECTOMY Medical History Medical History Date Comments Asthma 01/16/2020 DX:Asthma Morbid obesity with BMI of 4 5.0-49.9, adult ([facility]) 01/16/2020 DX:Morbid obesity with BMI o f 45.0-49.9, adult ([facility]) Migraine 01/16/2020 DX:Migraine Severe episode of recurrent major depressive disorder, without psychotic features ([facility]) 07/06/2022 DX:Severe episode of recurre nt major depressive disorder, without psychotic features ([facility]) Costochondritis 06/25/2021 DX:Costochondrit is Chest pain in adult 06/25/2021 DX:Chest emmanuelle n in adult Fibromyalgia Family History Medical History Relation Name Comments Asthma Brother 1 ADHD Asthma Daughter autism Mental illness Father asthma Other: heart attack Father Heart attack Maternal Grandfather Heart attack Maternal Grandmother Diabetes Mother Heart attack Mother T2DM, HTN, RA, lupus, ovarian cyst Ovarian cancer Mother Diabetes Paternal Grandfather alzheim ers, heart problems Diabetes Paternal Grandmother heart p roblems Depression Sister 1 Other: Myasthenia gravis Sister 2 Other: Thyroid cancer Sister 2 Asthma Sister 3 Learning disabilities Son Breast cancer Neg Hx Cervical cancer Neg Hx Uterine cancer Neg Hx Relation Name Status Comments Brother 1 Alive Brother 2 Alive Brother 3 Alive Daughter Alive Father Maternal Grandfather Maternal Grandmother Mother Alive Paternal Grandfather Paternal Grandmother Alive Sister 1 Alive Sister 2 Alive Sister 3 Alive Son Alive Social History Tobacco Use Types Packs/Day Years [...] for your loved ones. For example, child attendant or elderly care for an older adult? [...] on file Sexual Orientation Not on file Obstetrics History Last Filed Vital Signs Vital Sign Reading [...] Mass Index 50.31 07/23/2024 2:01 PM EST Plan of Treatment Upcoming Encounters Date Type Department Care Team (Late st Contact Info) Description 01/21/2025 2:30 PM EDT Office Visit Adult Medicine - [place] [address] [place] [address] Nichol Rich MD [address] [place] [address] Health Maintenance Due Date Last Done Comments Pneumococcal Vaccine: Pediatrics (0 to 5 Years) and At-Risk Patients (6 to 64 Years) (1 of 2 - PCV) 2014 COVID-19 Vaccine ( season) 2024 04/23/2021, 10/22/2020, 10/01/2020 Influenza Vaccine (#1) 2024 , 04/22/2023, 04/15/2021, Additional history exists Depression Screening 07/16/2025 07/16/2024, 01/19/20 24 Social Influencers of Health Screening 07/16/2025 07/16/2024 Cervical Cancer Screening: Pap Smear 07/20/2026 07/20/2023, 07/20/2023, 05/23/2020 DTaP,Tdap,and Td Vaccines (12 - Td or Tdap) 07/27/2027 07/27/2017, 03/21/2017, 03/29/2014, Additional history exists Cholesterol Screening (Lipid Panel) 07/23/2029 07/23/2024, 07/20/2023 HIB Vaccines Completed 02/20/2006, 02/08, 08/05/2005, Additional history exists IPV Vaccines Completed 02/20/2006, 12/09, 08/05/2005, Additional history exists Varicella Vaccines Completed 02/26/2008, 09/10/1996 Hepatitis A Vaccines Completed 04/15/2009, 02/26/20 08 HPV Vaccines Completed 08/20/2009, 12/2008, 02/26/2008 Meningococcal ACWY Vaccine Aged Out 07/24/2013, No longer eligible based on patient's age to complete this topic HIV Screening Completed 05/23/2020 Hepatitis C Screening Completed 05/23/2020 Hepatitis B Vaccines Completed 08/14/2020, 02/20/2020, 01/23/2020, Additional history exists MMR Vaccines Completed 04/03/2021, 02/09, 07/22/1999, Additional history exists Meningococcal B Vacine Aged Out No lo nger eligible based on patient's age to complete this topic RSV Immunization Patients Under 20 months Aged Out No longer eligible based on patient's age to complete this topic Procedures Procedure Name Priority Date/Time Associated Diagnosis Comments XR PARANASAL SINUSES 3+ VIEWS Routine 07/23/2024 3:04 PM EST Ear popping, bilateral CBC WITH AUTO DIFFERENTIAL Routine 07/23/2024 2:50 PM EST Adult general medical examination THYROID STIMULATING HORMONE WITH REFLEX TO FREE T4 AND FREE T3 Routine 07/23/2024 2:50 PM EST Adult general medical examination LIPID PANEL WITH REFLEX TO DIRECT LDL Routine 07/23/2024 2:50 PM EST Adult general medical examination COMPREHENSIVE METABOLIC PANEL Routine 07/23/2024 2:50 PM EST Adult general medical examination VITAMIN D 25 HYDROXY Routine 07/23/2024 2:50 PM EST Adult general medical examination CBC AND DIFFERENTIAL Routine 07/23/2024 2:50 PM EST Adult general medical examination HM DEPRESSION SCREENING Routine 01/19/2024 HM PAP SMEAR Routine 07/20/2023 HM HEPATITIS C SCREENING Routine 05/23/2020 HM HIV SCREENING Routine 05/23/2020 from Last 3 Months or Most Recently Relevant to Health Maintenance Results * XR Paranasal Sinuses 3+ Views [...] Signed Date: 07/23/2024 18:14 ET Workstation ID: [id number] Transcribed By: Self Edit Transcribed Date: 07/23/2024 [...] Signed Date: 07/23/2024 18:14 ET Workstation ID: [id number] Transcribed By: Self Edit Transcribed Date: 07/23/2024 18:14 ET us Jean Claude LORENZO IMG XR PROCEDURES Final Resul t * Thyroid stimulating hormone with reflex to free t4 and free t3 (07/23/2024 2:50 PM EST) TSH 3.26 0.40 - 4.00 mcIU/mL LAB CHEMISTRY METHOD 07/23/2024 6:39 PM EST [facility] Blood Venous blood specimen / Unknown Venipuncture / Unknown 07/23/2024 2:50 PM EST 07/23/2024 2:50 PM EST Jean Claude LORENZO LAB BLOOD ORDERABLES Final Re sult [facility] [address] [place] [address], [place] [phone] * (ABNORMAL) Lipid panel with reflex to direct LDL (07/23/2024 2:50 PM EST) [facility] Cholesterol 153 0 - 200 mg/dL LAB CHEMISTRY METHOD 07/23/2024 6:33 PM EST [facility] Triglycerides 164(H) 0 - 150 mg/dL LAB CHEMISTRY METHOD 07/23/2024 6:33 PM [facility] HDL 34(L) >=40 mg/dL LAB CHEMISTRY METHOD 07/23/2024 6:33 PM EST [facility] LDL Calculated 86 0 - 100 mg/dL LAB CHEMISTRY METHOD 07/23/2024 6:33 PM EST [facility] VLDL Cholesterol Karri 32.8 mg/dL LAB CHEMISTRY METHOD 07/23/2024 6:33 PM EST [facility] Non HDL Chol. (LDL+VLDL) 119 <145 mg/dL LAB CHEMISTRY METHOD 07/23/2024 6:33 PM [facility] Chol/HDL Ratio 4.5(H) 0.0 - 4.4 LAB CHEMISTRY METHOD 07/23/2024 6:33 PM [facility] Blood Venous blood specimen / Unknown Venipuncture / Unknown 07/23/2024 2:50 PM EST 07/23/2024 2:50 PM EST Jean Claude LORENZO LAB BLOOD ORDERABLES Final Re sult Performing Organization Address City/[facility]/ZIP Co de Phone Number [facility] [address] [place] [address], [place] [phone] * (ABNORMAL) CBC auto differential (07/23/2024 2:50 PM EST) [facility] WBC 14.6(H) 4.8 - 10.8 K/mcL LAB HEMETOLOGY METHOD 07/23/2024 4:14 PM [facility] RBC 4.40 3.80 - 4.80 M/mcL LAB HEMETOLOGY METHOD 07/23/2024 4:14 PM [facility] Hemoglobin 12.8 11.5 - 16.0 g/dL LAB HEMETOLOGY METHOD 07/23/2024 4:14 PM [facility] Hematocrit 41.0 35.0 - 47.0 % LAB HEMETOLOGY METHOD 07/23/2024 4:14 PM [facility] MCV 92.6 79.0 - 98.0 FL LAB HEMETOLOGY METHOD 07/23/2024 4:14 PM [facility] MCH 28.9 27.0 - 32.0 pcg LAB HEMETOLOGY METHOD 07/23/2024 4:14 PM [facility] MCHC 31.2(L) 32.0 - 37.0 g/dL LAB HEMETOLOGY METHOD 07/23/2024 4:14 PM [facility] RDW 13.5 11.0 - 15.0 % LAB HEMETOLOGY METHOD 07/23/2024 4:14 PM [facility] Platelets 401(H) 130 - 400 K/mcL LAB HEMETOLOGY METHOD 07/23/2024 4:14 PM [facility] MPV 11.0 7.0 - 11.0 FL LAB HEMETOLOGY METHOD 07/23/2024 4:14 PM [facility] NRBC 0.0 <1.0 % LAB HEMETOLOGY METHOD 07/23/2024 4:14 PM [facility] NRBC Absolute 0.00 <0.10 K/mcL LAB HEMETOLOGY METHOD 07/23/2024 4:14 PM [facility] Neutrophils Relative 59.5 % LAB HEMETOLOGY METHOD 07/23/2024 4:14 PM [facility] Lymphocytes Relative 31.8 % LAB HEMETOLOGY METHOD 07/23/2024 4:14 PM [facility] Monocytes Relative 5.4 % LAB HEMETOLOGY METHOD 07/23/2024 4:14 PM [facility] Eosinophils Relative 2.5 % LAB HEMETOLOGY METHOD 07/23/2024 4:14 PM [facility] Basophils Relative 0.3 % LAB HEMETOLOGY METHOD 07/23/2024 4:14 PM [facility] Immature Granulocytes Relative 0.5 % LAB HEMETOLOGY METHOD 07/23/2024 4:14 PM [facility] Neutrophils Absolute 8.67(H) 1.50 - 7.00 K/mcL LAB HEMETOLOGY METHOD 07/23/2024 4:14 PM [facility] Lymphocytes Absolute 4.62 1.00 - 5.00 K/mcL LAB HEMETOLOGY METHOD 07/23/2024 4:14 PM [facility] Monocytes Absolute 0.78 0.20 - 1.00 K/mcL LAB HEMETOLOGY METHOD 07/23/2024 4:14 PM [facility] Eosinophils Absolute 0.37 0.00 - 0.50 K/mcL LAB HEMETOLOGY METHOD 07/23/2024 4:14 PM [facility] Basophils Absolute 0.04 0.00 - 0.20 K/mcL LAB HEMETOLOGY METHOD 07/23/2024 4:14 PM [facility] Immature Granulocytes Absolute 0.07(H) 0.00 - 0.03 K/mcL LAB HEMETOLOGY METHOD 07/23/2024 4:14 PM [facility] Blood Venous blood specimen / Unknown Venipuncture / Unknown 07/23/2024 2:50 PM EST 07/23/2024 2:50 PM EST Jean Claude LORENZO LAB BLOOD ORDERABLES Final Re sult Performing Organization Address [facility]/ZIP Co de Phone Number [facility] [address] [place] [address], [place] [phone] * (ABNORMAL) Vitamin D 25 hydroxy (07/23/2024 2:50 PM EST) Vit D, 25-Hydroxy 23.1(L) 30.0 - 80.0 ng/mL LAB CHEMISTRY METHOD 07/23/2024 6:39 PM [facility] Blood Venous blood specimen / Unknown Venipuncture / Unknown 07/23/2024 2:50 PM EST 07/23/2024 2:50 PM EST Jean Claude LORENZO LAB BLOOD ORDERABLES Final Re sult Performing Organization Address [facility]/ZIP Co de Phone Number [facility] [address] [place] [address], [place] [phone] * (ABNORMAL) Comprehensive metabolic panel (07/23/2024 2:50 PM EST) Pathologist [facility] Sodium 138 133 - 145 mmol/L LAB CHEMISTRY METHOD 07/23/2024 6:33 PM [facility] Potassium 4.2 3.5 - 5.5 mmol/L LAB CHEMISTRY METHOD 07/23/2024 6:33 PM [facility] Chloride 107 96 - 110 mmol/L LAB CHEMISTRY METHOD 07/23/2024 6:33 PM EST [facility] CO2 25 21 - 32 mmol/L LAB CHEMISTRY METHOD 07/23/2024 6:33 PM [facility] Anion Gap 6 3 - 11 LAB CHEMISTRY METHOD 07/23/2024 6:33 PM [facility] Glucose 88 70 - 100 mg/dL LAB CHEMISTRY METHOD 07/23/2024 6:33 PM [facility] BUN 11 5 - 25 mg/dL LAB CHEMISTRY METHOD 07/23/2024 6:33 PM [facility] Creatinine 0.79 0.50 - 1.10 mg/dL LAB CHEMISTRY METHOD 07/23/2024 6:33 PM [facility] eGFR 104 >=60 mL/min/1. 73m2 LAB CHEMISTRY METHOD 07/23/2024 6:33 PM [facility] Comment:Calculation based on the??Chronic Kidney Disease Epidemiology Collaboration (CKD-EPI) equation refit??without adjustment for race. BUN/Creatinine Ratio 13.9 LAB CHEMISTRY METHOD 07/23/2024 6:33 PM [facility] Calcium 9.1 8.5 - 10.5 mg/dL LAB CHEMISTRY METHOD 07/23/2024 6:33 PM [facility] AST (SGOT) 16 10 - 42 unit/L LAB CHEMISTRY METHOD 07/23/2024 6:33 PM [facility] ALT (SGPT) 18 10 - 60 unit/L LAB CHEMISTRY METHOD 07/23/2024 6:33 PM [facility] Alkaline Phosphatase 133(H) 42 - 121 unit/L LAB CHEMISTRY METHOD 07/23/2024 6:33 PM [facility] Total Protein 7.7 6.0 - 8.0 g/dL LAB CHEMISTRY METHOD 07/23/2024 6:33 PM [facility] Albumin 3.5 3.2 - 5.0 g/dL LAB CHEMISTRY METHOD 07/23/2024 6:33 PM [facility] Total Bilirubin 0.2 0.0 - 1.4 mg/dL LAB CHEMISTRY METHOD 07/23/2024 6:33 PM [facility] Blood Venous blood specimen / Unknown Venipuncture / Unknown 07/23/2024 2:50 PM EST 07/23/2024 2:50 PM EST Jean Claude LORENZO LAB BLOOD ORDERABLES Final Re sult [facility] ([facility] [address] [place] [address], [place] [phone] * Depression Screening (01/19/2024) Depression Screening abstracted Historical Provider MD HEALTH MAINTENANCE Final Result * Pap Smear (07/20/2023) Pap smear 3 yr fu Historical Provider MD HEALTH MAINTENANCE Final Result * HIV Screening (05/23/2020) Pathologist [facility] HIV Screening abstracted [facility] Provider MD HEALTH MAINTENANCE Final Result * Hepatitis C Screening (05/23/2020) Hepatitis C Screening abstracted Historical Provider MD HEALTH MAINTENANCE Final Result from Last 3 Months or Most Recently Relevant to Health Maintenance Insurance [facility] [employer] Care Teams Finish Saw Operator Relationship Specialty Start Date End Date Nichol Rich MD [address] [place] [phone] PCP - General Internal Medicine 04/07/22
--- NOTE | 2024-08-23 14:20 | A.OFFVIS_ITS ---
Vital Signs 08/23/24 14:21 Height 5 ft 3 in Weight 279 lb 1.683 oz BMI 49.4 BP 124/82 Blood Pressure Location Lt brachial Position Sitting Pulse 90 Pulse Source Pulse Oximeter Intake Visit Reasons: 4M FOLLOW UP S/P Echo Early Breastfeeding Care Specialist Required: No Allergies Seasonal Allergies Allergy (Severe, Verified 08/23/24 14:23) Hives amoxicillin Allergy (Mild, Verified 08/23/24 14:23) Abdominal Pain iv morphine Allergy (Severe, Uncoded 08/23/24 14:23) Rash Medication List - Last Reconciled 08/23/24 by Heike Last, SHAHIDA-C acetaminophen ER 650 mg PO TID albuterol sulfate 90 mcg/actuation 2 puffs inhalation Q4-6H PRN benzonatate 200 mg PO BID PRN cetirizine 10 mg PO DAILY cholecalciferol (vitamin D3) 50 mcg (2 x 25 mcg (1,000 unit)) PO DAILY 30 days famotidine 20 mg PO BID ibuprofen 800 mg PO TID ipratropium bromide intranasal magnesium oxide 400 mg PO BEDTIME 30 days multivitamin (Daily Multi-Vitamin tablet) 1 tab PO DAILY naratriptan take 1/2 - 1 tab at onset of headache; if no relief may repeat 1 tab after at least 4 hrs; max = 2 tabs/24 hrs orally PRN; 30 days omega 4-wab-zat-fish oil 1,200 (144-216) mg (Fish Oil) caps PO pantoprazole 40 mg PO DAILY riboflavin (vitamin B2) 400 mg PO DAILY 30 days rosuvastatin 5 mg PO DAILY 30 days topiramate 100 mg (2 x 50 mg) PO BID 90 days ubrogepant (Ubrelvy) 50 - 100 mg (0.5 - 1 x 100 mg) PO ONCE PRN 30 days HPI HPI 4M FOLLOW UP S/P Echo: Details: Padma is a 29 yr old female with past medical history of morbid obesity, family history of CAD in her mother and father, who reported atypical chest pain and underwent an echocardiogram and now presents for follow-up. Today she reports that she does get an occasional stab in her chest. She has no chest discomfort that is brought on by physical activity. Overall her symptoms have lessened. She has no shortness of breath, PND, orthopnea or edema. No lightheadedness, presyncope, syncope, falls. She reports good activity tolerance. She was recently started on rosuvastatin for her cholesterol. [facility] Medical History Acid reflux Asthma Migraine Surgical History Hx of appendectomy Family History Mother Myocardial infarct HTN (hypertension) Arthritis Lupus Ovarian ca Type 2 diabetes mellitus Father Mental disorder Asthma Maternal Grandfather Myocardial infarct Maternal Grandmother Myocardial infarct Paternal Grandfather Diabetes Alzheimer disease Daughter Autism Social History Alcohol intake: current Alcohol intake frequency: holidays/special occasions only Patient Tobacco Use Status: Former Tobacco user Review of Systems Const All systems reviewed & are unremarkable except as noted in HPI and below ENT Denies dizziness Card Denies chest pain, Denies chest pain at rest, Denies chest pain with activity, Denies rapid heart rate, Denies pedal edema, Denies edema, Denies leg edema, Denies lightheadedness, Denies palpitations, Denies dyspnea, Denies dyspnea on exertion and Denies orthopnea Resp Denies cough, Denies dyspnea and Denies dyspnea on exertion GI Denies hematochezia and Denies change in stool character Musc Denies abnormal gait, Denies limited range of motion, Denies muscle cramps, Denies muscle weakness, Denies numbness, Denies radiating pain into limb, Denies stiffness and Denies tingling Neuro Denies abnormal gait, Denies dizziness, Denies numbness and Denies tingling Endo Denies palpitations Physical Exam Vital Signs: Last Vital Signs Pulse 90 08/23/24 14:21 BP 124/82 08/23/24 14:21 BMI result Body Mass Index 49.4 Const General: cooperative, healthy appearing, comfortable and no acute distress Orientation/consciousness: patient oriented x3 Resp Effort & Inspection: normal respiratory effort Auscultation: clear to auscultation bilaterally, no crackles, no rales, no rhonchi and no wheezes Cardio Rate: regular rate Rhythm: regular rhythm Heart sounds: S1 normal heart sound present, S2 normal heart sound present, no murmurs and no rubs Neuro General: patient oriented x3 Extrem General: Yes normal to inspection, No no pedal edema and No calf tenderness Psych Appearance: grossly normal Mental Status: mental status grossly normal Speech and movement: Normal speech and movement present Assessment & Plan Assessment & Plan (1) Chest pain: Code(s): R07.9 - Chest pain, unspecified Category: Medical Plan: Reports of atypical chest discomfort. Cardiac risk factors of obesity and family history. EKG done 05/02/2024 showed sinus rhythm with no acute ST or T- wave abnormalities. Echocardiogram done 05/30/2024 was normal study. Coronary calcium score offered last visit and she declined. Labs done 05/02/2024 showed LDL 118. She was started on rosuvastatin for cholesterol control. Test results reviewed with her in detail. At this time she reports her symptom has lessened. She has no exertional chest discomfort. Signs and symptoms of true angina reviewed with her. With her family history of early CAD it would be best for her to follow strict cardiac risk factor modification. Benefits of weight loss reviewed. Recommend recheck of fasting lipid profile in a few months. She is not diabetic. Weight loss will help to prevent future type 2 diabetes diagnosis. Cardiology follow-up as needed. (2) Family history of cardiac disorder in mother: Comment: Mother had TN in her 40s Code(s): Z82.49 - Family history of ischemic heart disease and other diseases of the circulatory system Category: Medical (3) Family history of cardiac disorder in father: Comment: Father had fatal TN in his late 50s Code(s): Z82.49 - Family history of ischemic heart disease and other diseases of the circulatory system Category: Medical (4) Obesity, morbid, BMI 50 or higher: Code(s): E66.01 - Morbid (severe) obesity due to excess calories Category: Medical Plan: As above Plan Time spent on chart review, documentation, interview and assessment Coding Level of Care Code Est Pt Level 3 (92560) Complex EM visit Add On G2211 Diagnoses Chest pain R07.9 Family history of cardiac disorder in mother Z82.49 Family history of cardiac disorder in father Z82.49 Obesity, morbid, BMI 50 or higher E66.01 Time Spent (min) 24
[2024-08-23 14:21] VITALS: BP 124/82; PULSE 90; BMI 49.4
== END 2024-08-23 15:45 | disposition home or self-care (01) ==
PROVIDERS: PCP Family Medicine; Visit Provider Internal Medicine
DX: R07.9 Chest pain, unspecified (principal); Z82.49 Family history of ischemic heart disease and other diseases of the circulatory system; E66.01 Morbid (severe) obesity due to excess calories
CPT/HCPCS: 99213; G2211

== ENCOUNTER → 2024-08-23 14:07 | Outpatient (BNVA) | payer OTHER, SELFPAY | PROVIDERS: PCP Family Medicine; Visit Provider Internal Medicine | DX: R07.9 Chest pain, unspecified (principal); E66.01 Morbid (severe) obesity due to excess calories; Z82.49 Family history of ischemic heart disease and other diseases of the circulatory system; Z68.42 Body mass index [BMI] 45.0-49.9, adult | CPT/HCPCS: 99212 ==

== ENCOUNTER 2024-11-23 14:27 | Emergency (ER) | payer OTHER, SELFPAY ==
--- NOTE | ~2024-11-23 | CT_ITS ---
CLINICAL HISTORY: L flank pain CT abdomen and pelvis with contrast Comparison: None Findings: No consolidation of the imaged lung bases. Mild fat deposition noted in the liver. Gallbladder is unremarkable for CT. Mild fluid adjacent to the pancreas is nonspecific and may reflect mild pancreatitis. Mild mesenteric adenitis also considered given multiple nonspecific mesenteric lymph nodes and mild fluid of the mesentery-measuring mesentery. No small bowel obstruction. Severe stool burden present, including the cecum. The appendix is not definitively seen and likely surgically absent. The adrenal glands are normal. The spleen is nonenlarged. No hydronephrosis. The uterus is anteverted. No adnexal soft tissue mass. Mild-moderate wall thickening of the urinary bladder is nonspecific and may reflect mild cystitis. Mild free fluid in the pelvis is likely physiologic. Trace fat containing periumbilical hernia Multilevel Schmorl's nodes. Facet arthropathy is multifocal. Degenerative changes include hips and SI joints. These degenerative changes are greater than expected for age. IMPRESSION: 1. Mild fluid in the upper abdomen is nonspecific and may reflect mild mesenteric adenitis and/or pancreatitis. 2. Severe stool burden. No small bowel obstruction. 3. No hydronephrosis. Mild wall thickening of the urinary bladder is nonspecific. This document has been electronically signed by: Steve Coronado MD on 11/23/2024 21:24:16
--- NOTE | ~2024-11-23 | XR_ITS ---
CLINICAL HISTORY: left upper chest shoulder pain 1 view chest x-ray Comparison: CR/SR - XR CHEST 2V - 06/22/24 17:49 EST Findings: No consolidation or effusion. Heart size is normal. No acute fracture. IMPRESSION: 1. No acute findings. This document has been electronically signed by: George Dong MD on 11/23/2024 18:06:25
[2024-11-23 14:56] VITALS: BP 130/87; PULSE 103; RESP 18; TEMP 36.7; O2SAT 100; BMI 51.0
--- NOTE | 2024-11-23 14:58 | ED_ITS ---
HPI - Abdominal Pain General Chief Complaint: Abdominal Pain Stated Complaint: Abdominal Pain Etc Time Seen by Provider: 11/23/24 17:05 Source: patient Mode of arrival: ambulatory Limitations: no limitations History of Present Illness HPI narrative: This is a 29-year-old medical history of migraine with aura, GERD, fibromyalgia, hyperlipidemia, history of appendectomy who presents for evaluation. She states starting to get sick this morning while getting her children ready. She states worsening left-sided abdominal pain throughout the day. She states associated nausea. She states no consitpation, diarrhea or bloody stools. She states she was recently diagnosed with a UTI and started on Macrobid, which she reports taking. She states continued dysuria and urinary frequency. She states no fevers or chills. She states no dyspnea. She states that pain is now moving from her left-abdomen throughout her left chest and shoulder. She states no previous VTE. She states no leg edema/pain. She states no recent surgery and trauma in the last 4 weeks. She states no cough or congestion. Related Data Home Medications ?Medication ?Instructions ?Recorded ?Confirmed acetaminophen 650 mg 650 mg PO TID 05/08/24 08/23/24 tablet,extended release cetirizine 10 mg tablet 10 mg PO DAILY 05/08/24 08/23/24 famotidine 20 mg tablet 20 mg PO BID 05/08/24 08/23/24 ibuprofen 800 mg tablet 800 mg PO TID 05/08/24 08/23/24 ipratropium bromide 21 mcg (0.03 intranasal 05/08/24 08/23/24 %) nasal spray multivitamin (Daily Multi-Vitamin 1 tab PO DAILY 05/08/24 08/23/24 tablet) omega 8-mos-tzt-fish oil 1,200 mg cap PO 05/08/24 08/23/24 (144 mg-216 mg) capsule (Fish Oil) pantoprazole 40 mg tablet,delayed 40 mg PO DAILY 05/08/24 08/23/24 release Previous Rx's ?Medication ?Instructions ?Recorded naratriptan 2.5 mg tablet See Rx Instructions PO .COMPLEX 01/24/24 PRN migraine headache 30 days #12 tabs albuterol sulfate 90 mcg/actuation 2 puff inhalation Q4-6H PRN 06/22/24 aerosol inhaler shortness of breath or wheezing #6.7 grams benzonatate 200 mg capsule 200 mg PO BID PRN cough #14 caps 06/22/24 magnesium oxide 400 mg (241.3 mg 400 mg PO BEDTIME 30 days #30 tabs 07/16/24 magnesium) tablet riboflavin (vitamin B2) 400 mg 400 mg PO DAILY 30 days #30 tabs 07/16/24 tablet topiramate 50 mg tablet 100 mg (2 x 50 mg) PO BID 90 days 07/16/24 #360 tabs ubrogepant 100 mg tablet (Ubrelvy) 50 - 100 mg (0.5 - 1 x 100 mg) PO 07/16/24 ONCE PRN migraine headache 30 days #16 tabs cholecalciferol (vitamin D3) 25 50 mcg (2 x 25 mcg (1,000 unit)) 07/31/24 mcg (1,000 unit) capsule PO DAILY 30 days #60 caps ondansetron HCl 4 mg tablet 4 mg PO Q4H PRN nausea and 09/05/24 vomiting 30 days #30 tabs rosuvastatin 5 mg tablet 5 mg PO DAILY 30 days #30 tabs 10/30/24 Allergies Allergy/AdvReac Type Severity Reaction Status Date / Time Seasonal Allergies Allergy Severe Hives Verified 11/23/24 14:57 amoxicillin Allergy Mild Abdominal Verified 11/23/24 14:57 Pain iv morphine Allergy Severe Rash Uncoded 11/23/24 14:57 Review of Systems Review of Systems ROS as per [facility] Past Medical History Medical History Acid reflux Asthma Migraine Surgical History Hx of appendectomy Family History Family History Mother Myocardial infarct HTN (hypertension) Arthritis Lupus Ovarian ca Type 2 diabetes mellitus Father Mental disorder Asthma Maternal Grandfather Myocardial infarct Maternal Grandmother Myocardial infarct Paternal Grandfather Diabetes Alzheimer disease Daughter Autism Social History Social History Alcohol intake: current Alcohol intake frequency: holidays/special occasions only Patient Tobacco Use Status: Former Tobacco user Advance Directives: No Advance Directives Information Provided: No Do you have a plan to hurt others: No Plan Physical Exam ED Vital Signs: Vital Signs - 24 hr 11/23/24 14:56 11/23/24 18:16 11/23/24 19:25 Temperature 98.0 F 97.1 F 98.5 F Pulse Rate 103 H 98 96 Respiratory Rate 18 14 20 Blood Pressure 130/87 120/80 107/62 Pulse Oximetry 100 100 98 Oxygen Delivery Method Room Air Room Air Room Air BMI result Body Mass Index 51.0 Gen: NAD, AOx3 HEENT: NCAT, EOMI, normal conjunctiva CV: RRR Pulm: CTAB, no increased work of breathing GI: Soft, +LUQ/LLQ TTP, no focal rebound, guarding or rigidity MSK: +TTP to anterior left chest/shoulder/posterolateral chest wall without overyling skin changes Neuro: Grossly non focal Course Course Course Narrative: This is a Rapid Medical Exam performed in triage by Odessa Dunaway PA-C. Full HPI, ROS and PE to be performed by primary ED provider. 29 yo F presenting to the ED c/o LUQ abd pain radiating to L shoulder/chest x this AM. +nausea. Denies V/D, fever PE: Abdomen is soft and nontender Plan: EKG, Labs, UA Medical Decision Making Medical Decision Making MDM Narrative: Differential diagnosis includes, but is not limited to pyelonephritis, urinary tract infection, diverticulitis, nephrolithiasis, pulmonary embolism. Patient is afebrile and hemodynamically stable on room air. Exam is benign and reassuring. Given tachycardia on arrival, I am unable to PERC patient out and so d-dimer is obtained. Patient is treated supportively with IV fluids, Zofran, Tylenol and Toradol. I reviewed patient's labs, EKG, urine studies and diagnostic imaging as below. Care is transitioned to the oncoming physician, Dr. Geller, at the end of my shift at [address] imaging results. [address] CT scan showed IMPRESSION: 1. Mild fluid in the upper abdomen is nonspecific and may reflect mild mesenteric adenitis and/or pancreatitis. 2. Severe stool burden. No small bowel obstruction. 3. No hydronephrosis. Mild wall thickening of the urinary bladder is nonspecific. This document has been electronically signed by: Steve Coronado MD on 11/23/2024 21:24:16 Differential Diagnosis Differential Diagnoses: The differential diagnosis associated with the presentation includes Admission/Observation Consideration of admission/observation: Escalation of care including admission/observation considered Lab Data MDM Lab Attestation statement: I reviewed the patient's lab results. Labs notable for leukocytosis with a white blood cell count 14.5, D-dimer reassuring at 2:59 a.m. effectively ruling out pulmonary embolism in this low risk patient, metabolic panel unremarkable, magnesium level within normal limits, no hyperbilirubinemia with transaminitis, lipase within normal limits. Urinalysis unremarkable with no evidence of urinary tract infection. 11/23/24 15:10 11/23/24 15:10 Labs: Lab Results 11/23/24 11/23/24 11/23/24 Range/Units 15:10 17:50 19:53 WBC 14.5 H (4.8-10.8) X10*3/uL RBC 4.36 (4.20-5.50) X10*6/uL Hgb 12.8 (12.0-16.0) g/dl Hct 39.3 (37.0-47.0) % MCV 90.1 (80.0-98.0) fL MCH 29.4 (27.0-33.0) pg MCHC 32.6 (31.0-35.0) g/dl RDW 13.9 (11.0-16.0) % Plt Count 347 (160-400) X10*3/uL MPV 10.5 (9.4-12.3) fL Immature Gran % (Auto) 0.3 (0.0-0.4) % Neut % (Auto) 65.8 (45-73) % Lymph % (Auto) 26.4 (20-40) % [place] % (Auto) 5.5 (2-11) % Eos % (Auto) 1.7 (0-4) % Baso % (Auto) 0.3 (0-2) % Lymph # (Auto) 3.8 (1.2-4.9) X10*3/uL [place] # (Auto) 0.8 (0.1-1.2) X10*3/uL Eos # (Auto) 0.3 (0.0-0.4) X10*3/uL Baso # (Auto) 0.0 (0.0-0.2) X10*3/uL Abs Immat Gran (auto) 0.05 H (0.00-0.03) X10*3/uL Absolute Neuts (auto) 9.5 H (2.0-8.3) x10*3/uL Absolute Nucleated RBC 0.000 (0.0-0.012) X10*3/uL Nucleated RBC % (auto) 0.0 (0.0-0.2) /100WBC D-Dimer High Sensitivty 259 NG/ML Sodium 141 (135-145) mmol/L Potassium 3.5 (3.3-5.1) mmol/L Chloride 105 (96-108) mmol/L Carbon Dioxide 26 (22-29) mmol/L Anion Gap 14 (12-20) BUN 9 (9-16) mg/dL Creatinine 0.65 (0.5-1.4) mg/dL Estim Creat Clear Calc 168.7 Estimated GFR > 60 Random Glucose 94 (60-115) mg/dL Calcium 9.1 (8.4-10.2) mg/dL Magnesium 1.9 (1.6-2.6) mg/dL Total Bilirubin 0.3 (0.0-1.0) mg/dL Direct Bilirubin 0.1 (0.0-0.5) mg/dL AST 27 (5-31) U/L ALT 11 (0-31) U/L Alkaline Phosphatase 116 (39-117) U/L Total Protein 7.6 (6.5-8.0) g/dL Albumin 3.8 (3.5-5.0) g/dL Lipase 22 (8-78) U/L Urine Color Dark Yellow Urine Appearance Clear Urine pH 6.0 (5.0-9.0) Ur Specific [place] 1.025 (1.005-1.025) Urine Protein Trace (Neg-Trace) mg/dL Urine Glucose (UA) Negative (Negative) mg/dL Urine Ketones Trace (Negative) mg/dL Urine Blood Negative (Negative) Urine Nitrite Negative (Negative) Ur Leukocyte Esterase Negative (Negative) Urine Test NEGATIVE (NEGATIVE) Independent Interpretation I performed an independent interpretation of an: EKG Interpretation: EKG shows sinus tachycardia 106 beats per minute, NE 152, QRS 74, QTC 430, no STEMI. Chest x-ray shows no pleural effusion, focal consolidation or pneumothorax Radiology Impression Discussion of test interpretation with radiology: I have reviewed the radiologist's reading. Radiologist Impression: IMPRESSION: 1. No acute findings. This document has been electronically signed by: George Dong MD on 11/23/2024 18:06:25 Dictated By: George Dong MD Signed By: <Electronically signed by George Dong MD in [place]> 11/23/24 1807 Medications Administered Discontinued Medications Generic Name Dose Route Start Last Admin Trade Name Freq PRN Reason Stop Dose Admin Acetaminophen 975 mg 11/23/24 21:06 11/23/24 22:06 Acetaminophen 325 Mg Tablet PO 11/23/24 21:07 975 mg ONCE ONE Administration Sodium Chloride 1,000 mls @ 999 mls/hr 11/23/24 17:45 11/23/24 22:07 Ns IV 11/23/24 18:45 Infused .Q1H1M SATURNINO Infusion Iohexol 100 ml 11/23/24 20:18 11/23/24 20:18 Iohexol 350 Mg/Ml 100 Ml Infus..Btl IV 11/23/24 20:19 85 ml ONCE ONE Administration Ketorolac Tromethamine 15 mg 11/23/24 17:38 11/23/24 17:57 Ketorolac Tromethamine 15 Mg/Ml Vial IVPUSH 11/23/24 17:39 15 mg ONCE ONE Administration Lidocaine HCl 15 ml 11/23/24 19:05 11/23/24 19:59 Lidocaine Hcl Viscous 2 % 15 Ml Solution MUCOUS MEM 11/23/24 19:06 15 ml ONCE ONE Administration Ondansetron HCl 4 mg 11/23/24 17:38 11/23/24 17:57 Ondansetron Hcl 4 Mg/2 Ml Vial IVPUSH 11/23/24 17:39 4 mg ONCE ONE Administration Ondansetron HCl 4 mg 11/23/24 19:05 11/23/24 19:59 Ondansetron Hcl 4 Mg/2 Ml Vial IVPUSH 11/23/24 19:06 4 mg ONCE ONE Administration Discharge Plan Discharge Clinical Impression: Abdominal pain Instructions: Abdominal Pain (ED) Additional Instructions: Your emergency room evaluation was overall reassuring. Your blood work, kidney function, electrolytes, liver function tests were all very reassuring. Your chest x-ray and EKG were normal. Analysis of your urine showed no evidence of infection. Your CAT scan was normal. Please follow-up with your primary care doctor in 1-2 weeks. Return to the emergency room with a new concerns or symptoms. Prescriptions: No Action cholecalciferol (vitamin D3) 25 mcg (1,000 unit) capsule 50 mcg PO DAILY 30 Days Qty: 60 6RF ondansetron HCl 4 mg tablet 4 mg PO Q4H MDD 4 tabs PRN (Reason: nausea and vomiting) 30 Days Qty: 30 3RF rosuvastatin 5 mg tablet 5 mg PO DAILY 30 Days Qty: 30 6RF albuterol sulfate 90 mcg/actuation HFA aerosol inhaler 2 puff inhalation Q4-6H PRN (Reason: shortness of breath or wheezing) Qty: 6.7 0RF benzonatate 200 mg capsule 200 mg PO BID PRN (Reason: cough) Qty: 14 0RF naratriptan 2.5 mg tablet See Rx Instructions PO .COMPLEX PRN (Reason: migraine headache) 30 Days Qty: 12 6RF Rx Instructions: take 1/2 - 1 tab at onset of headache; if no relief may repeat 1 tab after at least 4 hrs; max = 2 tabs/24 hrs orally PRN; topiramate 50 mg tablet 100 mg PO BID 90 Days Qty: 360 1RF riboflavin (vitamin B2) 400 mg tablet 400 mg PO DAILY 30 Days Qty: 30 6RF magnesium oxide 400 mg (241.3 mg magnesium) tablet 400 mg PO BEDTIME 30 Days Qty: 30 6RF Rx Instructions: may hold for loose stools Ubrelvy 100 mg tablet 50 - 100 mg PO ONCE PRN (Reason: migraine headache) 30 Days Qty: 16 3RF Rx Instructions: take at onset of migraine, may repeat in 2hrs (may take w/ Ibuprofen) pantoprazole 40 mg tablet,delayed release (DR/EC) 40 mg PO DAILY famotidine 20 mg tablet 20 mg PO BID cetirizine 10 mg tablet 10 mg PO DAILY ipratropium bromide 21 mcg (0.03 %) spray,non-aerosol intranasal acetaminophen 650 mg tablet extended release 650 mg PO TID ibuprofen 800 mg tablet 800 mg PO TID multivitamin [Daily Multi-Vitamin] Tablet 1 tab PO DAILY omega 2-sqk-nzj-fish oil [Fish Oil] 1,200 (144-216) mg capsule PO Print Language: Bel[place]ian
--- NOTE | 2024-11-23 14:59 | ECG_ITS ---
Test Reason : cp Blood Pressure : */* mmHG Vent. Rate : 106 BPM Atrial Rate : 106 BPM P-R Int : 152 ms QRS Dur : 74 ms QT Int : 324 ms P-R-T Axes : 33 15 1 degrees QTcB Int : 430 ms Sinus tachycardia Cannot rule out Anterior infarct , age undetermined Abnormal ECG No previous ECGs available Referred By: Odessa Dunaway Electronically Signed By: JUDAH SAUCEDO MD
[2024-11-23 15:14] LABS: MANUAL DIFF FLAG NO
[2024-11-23 15:18] LABS: Basophils Percent Auto 0.3 % (0-2); Eosinophils Absolute Auto 0.3 X10*3/uL (0.0-0.4); Eosinophils Percent Auto 1.7 % (0-4); Hematocrit 39.3 % (37.0-47.0); Hemoglobin 12.8 g/dl (12.0-16.0); Imm Gran Abs Auto 0.05 X10*3/uL (0.00-0.03); Imm Gran Pct Auto 0.3 % (0.0-0.4); Lymphocytes Absolute Auto 3.8 X10*3/uL (1.2-4.9); Lymphocytes Percent Auto 26.4 % (20-40); Mean Corpuscular HGB Conc 32.6 g/dl (31.0-35.0); Mean Corpuscular Hemoglobin 29.4 pg (27.0-33.0); Mean Corpuscular Volume 90.1 fL (80.0-98.0); Mean Platelet Volume 10.5 fL (9.4-12.3); Monocytes Absolute Auto 0.8 X10*3/uL (0.1-1.2); Monocytes Percent Auto 5.5 % (2-11); Neutrophils Absolute Auto 9.5 x10*3/uL (2.0-8.3); Neutrophils Percent Auto 65.8 % (45-73); Platelet Count 347 X10*3/uL (160-400); Red Blood Count 4.36 X10*6/uL (4.20-5.50); Red Cell Distribution Width 13.9 % (11.0-16.0); White Blood Count 14.5 X10*3/uL (4.8-10.8)
[2024-11-23 15:41] LABS: Alanine Aminotransferase 11 U/L (0-31); Albumin Level 3.8 g/dL (3.5-5.0); Alkaline Phosphatase 116 U/L (39-117); Anion Gap 14 (12-20); Aspartate Amino Transferase 27 U/L (5-31); Bilirubin Direct 0.1 mg/dL (0.0-0.5); Bilirubin Total 0.3 mg/dL (0.0-1.0); Blood Urea Nitrogen 9 mg/dL (9-16); Calcium 9.1 mg/dL (8.4-10.2); Carbon Dioxide 26 mmol/L (22-29); Chloride 105 mmol/L (96-108); Creatinine Clr Calc Pharmacy 168.7; Estimated Glomerular Filt Rate > 60; Glucose Random 94 mg/dL (60-115); Lipase 22 U/L (8-78); Magnesium 1.9 mg/dL (1.6-2.6); Potassium 3.5 mmol/L (3.3-5.1); Sodium 141 mmol/L (135-145); Total Protein 7.6 g/dL (6.5-8.0)
[2024-11-23] MEDS: 0.9 % Sodium Chloride 1,000 ML 999 ML IV (17:56)
[2024-11-23] MEDS: ondansetron HCL 4 MG/2 ML VIAL IVPUSH ×2 (17:57→19:59)
[2024-11-23] MEDS: Ketorolac Tromethamine 15 MG/ML VIAL IVPUSH (17:57)
[2024-11-23 18:15] LABS: D Dimer High Sensitivity 259 NG/ML
[2024-11-23 18:16] VITALS: BP 120/80; PULSE 98; RESP 14; TEMP 36.2; O2SAT 100
[2024-11-23 19:25] VITALS: BP 107/62; PULSE 96; RESP 20; TEMP 36.9; O2SAT 98
[2024-11-23] MEDS: Lidocaine HCl Viscous 2 % 15 ML SOLUTION MUCOUS MEM (19:59)
[2024-11-23 20:02] LABS: Appearance Urine Clear; Color Urine Dark Yellow; Glucose Urine UA Negative (Negative); Leukocyte Esterase Urine Negative (Negative); Nitrite Urine Negative (Negative); Specific Gravity - Urine 1.025 (1.005-1.025); Urine Blood Negative (Negative); Urine Ketones Trace mg/dL (Negative); Urine Protein Trace mg/dL (Neg-Trace)
[2024-11-23 20:04] LABS: UPreg QC Valid YES; Urine Pregnancy NEGATIVE (NEGATIVE)
[2024-11-23] MEDS: iohexoL 350 MG/ML 100 ML INFUS..BTL IV (20:18)
[2024-11-23] MEDS: Acetaminophen 325 MG TABLET 975 MG PO (22:06)
[2024-11-23 22:10] VITALS: BP 129/74; PULSE 95; RESP 16; TEMP 36.8; O2SAT 94
[2024-11-23] MEDS: Milk of Magnesia 30 ML ORAL.SUSP PO (22:40)
[2024-11-23 22:42] VITALS: BP 129/74; PULSE 95; RESP 16; TEMP 36.8; O2SAT 94
== END 2024-11-23 22:44 | disposition home or self-care (01) ==
PROVIDERS: Physician Assistant; Emergency Provider Emergency Medicine; PCP Family Medicine
DX: R10.32 Left lower quadrant pain (principal); R11.0 Nausea; R07.89 Other chest pain; Z79.899 Other long term (current) drug therapy; Z87.891 Personal history of nicotine dependence
CPT/HCPCS: 36415; 71045; 74177; 80048; 80076; 81003; 81025; 83690; 83735; 85025; 85379; 93005; 96361; 96374; 96375; 96376; 99284; J1885; J2405; Q9967

== ENCOUNTER → 2024-11-23 14:59 | Outpatient (BNV) | payer OTHER, SELFPAY | PROVIDERS: PCP Family Medicine; Visit Provider Internal Medicine Cardiovascular Disease | DX: R00.0 Tachycardia, unspecified (principal) | CPT/HCPCS: 93010 ==

== ENCOUNTER → 2024-11-23 17:39 | Outpatient (BNV) | payer OTHER, SELFPAY | PROVIDERS: Emergency Provider Emergency Medicine; PCP Family Medicine; Visit Provider Radiology Diagnostic Radiology | DX: R10.32 Left lower quadrant pain (principal); M25.512 Pain in left shoulder | CPT/HCPCS: 71045; 74177 ==

== ENCOUNTER 2025-04-18 13:43 | Outpatient (AMB) | payer OTHER, SELFPAY ==
--- NOTE | 2025-04-18 13:55 | A.OFFVIS_ITS ---
Vital Signs 04/18/25 14:02 Height 5 ft 3 in Weight 272 lb 4.334 oz BMI 48.2 BP 134/90 H Blood Pressure Location Lt brachial Position Sitting Pulse 104 H Pulse Source Pulse Oximeter Pulse Oximetry (%) 99 Oxygen Delivery Method Room Air Intake Visit Reasons: JUAN JOSE+ Intake Note: Patient presents for JUAN JOSE + follow up. Allergies Seasonal Allergies Allergy (Severe, Verified 04/18/25 13:59) Hives amoxicillin Allergy (Mild, Verified 04/18/25 13:59) Abdominal Pain iv morphine Allergy (Severe, Uncoded 11/23/24 14:57) Rash Medication List - Last Reconciled 04/18/25 by Dolores Chen MD acetaminophen ER 650 mg PO TID albuterol sulfate 90 mcg/actuation 2 puffs inhalation Q4-6H PRN benzonatate 200 mg PO BID PRN cetirizine 10 mg PO DAILY cholecalciferol (vitamin D3) 50 mcg (2 x 25 mcg (1,000 unit)) PO DAILY 30 days famotidine 20 mg PO BID ibuprofen 800 mg PO TID ipratropium bromide intranasal magnesium oxide 400 mg PO BEDTIME 30 days multivitamin (Daily Multi-Vitamin tablet) 1 tab PO DAILY naratriptan take 1/2 - 1 tab at onset of headache; if no relief may repeat 1 tab after at least 4 hrs; max = 2 tabs/24 hrs orally PRN; 30 days omega 2-onv-inz-fish oil 1,200 (144-216) mg (Fish Oil) caps PO ondansetron HCl 4 mg PO Q4H PRN 30 days MDD 4 tabs pantoprazole 40 mg PO DAILY phentermine 37.5 mg PO DAILY polyethylene glycol 3350 (Miralax) 17 grams PO DAILY riboflavin (vitamin B2) 400 mg PO DAILY 30 days rosuvastatin 5 mg PO DAILY 30 days sennosides-docusate sodium 8.6-50 mg (Senexon-S) 1 tab-cap PO BEDTIME topiramate 100 mg (2 x 50 mg) PO BID 90 days ubrogepant (Ubrelvy) 50 - 100 mg (0.5 - 1 x 100 mg) PO ONCE PRN 30 days HPI Comments Details: Patient is a 29-year-old female with GERD, hyperlipidemia, migraines, and positive JUAN JOSE here today for follow up Interval History: Patient last seen 07/02/[address] Terry - Follow up after diagnositc work up - comprehensive serology normal - no evidence of autoimmune disease - picture consistent with fibromyalgia Today - Not on any DMARDs - Still with significant fatigue - Gets pins and needles feeling in her legs that is painful, also gets the same feeling in her hands - Has not been evaluated for her pins and needles with EMG - Migraines under control - Currently on Phentermine for weight loss - Started statin for high cholesterol Rheumatologic History: Initial history: This is a 28-year-old female who presents for evaluation of positive JUAN JOSE and elevated ESR. This was ordered in the context of migraines. She states that she has had migraines for more than 10 years but they have been more persistent recently. She states that her mother has SLE and fibromyalgia. She states that she has diffuse pain everywhere especially of her hands and feet and associated with tingling and numbness. Patient states that she snores at night. She had a sleep study about 3 years ago, at that time she was around 220 lb. 60 lb less than today. She denies any specific skin rashes. She has not noticed any significant joint swelling. Denies any blood or froth in urine. She had 2 pregnancies in total, 2 children, no abortions or miscarriages. Denies any history of DVT/PE. Current Rheumatology Medication(s): [facility] Medical History Acid reflux Asthma Migraine Surgical History Hx of appendectomy Family History Mother Myocardial infarct HTN (hypertension) Arthritis Lupus Ovarian ca Type 2 diabetes mellitus Father Mental disorder Asthma Maternal Grandfather Myocardial infarct Maternal Grandmother Myocardial infarct Paternal Grandfather Diabetes Alzheimer disease Daughter Autism Social History Alcohol intake: current Alcohol intake frequency: holidays/special occasions only Patient Tobacco Use Status: Former Tobacco user Review of Systems Const Details: Review of Systems Constitutional: Denies fever, chills, weight loss ENT: Denies vision changes, eye pain or eye redness, dental caries, dry mouth GI: Denies nausea, vomiting, diarrhea, abdominal pain, change in BM Pulm: Denies SOB, LUCERO, hemoptysis, wheezing Cards: Denies chest pain, palpitations Skin: Denies Raynaud's, rash, nail changes, photosensitivity, [employer]: Denies headaches, weakness, paresthesias, recurrent falls MSK: as per HPI All other systems reviewed and are unremarkable except noted above Physical Exam Exam Exam: Vital signs reviewed Physical Examination CONSTITUITIONAL Patient alert and cooperative. Well appearing and in no apparent painful distress MSK Hands * Right Hand: Able to make a fist. No swelling or tenderness to palpation of the MCPs, PIPs or DIPs. * Left Hand: Able to make a fist. No swelling or tenderness to palpation of the MCPs, PIPs or DIPs. Wrists * Right Wrist: Full ROM to flexion and extension. No swelling or TTP * Left Wrist: Full ROM to flexion and extension. No swelling or TTP Elbows * Right Elbow: Full ROM. No swelling or TTP. No TTP of the medial epicondyle. No TTP of the lateral epicondyle * Left Elbow: Full ROM. No swelling or TTP. No TTP of the medial epicondyle. No TTP of the lateral epicondyle Shoulders * Right shoulder: Full ROM. No swelling noted. No TTP of the AC joint. No TTP of the subacromial bursa. No TTP of the posterior shoulder * Left shoulder: Full ROM. No swelling noted. No TTP of the AC joint. No TTP of the subacromial bursa. No TTP of the posterior shoulder Hip bursa: Tenderness to palpation bilaterally Knees * Right knee: Full ROM. No swelling noted. No TTP of the knee joint line. TTP of pes anserine bursa * Left knee: Full ROM. No swelling noted. No TTP of the knee joint line. TTP of pes anserine bursa. Ankles * Right ankle: Good ankle dorsiflexion and plantar flexion. No swelling. No TTP of the ankle joint * Left ankle: Good ankle dorsiflexion and plantar flexion. No swelling. No TTP of the ankle joint Feet * Right foot: Negative squeeze test * Left foot: Negative squeeze test Tender points? * Tenderness to palpation of the bilateral trapezius, supraspinatus, anterior costochondral junctions, bilateral suboccipital muscle insertions SKIN No rashes Vital Signs: Last Vital Signs Pulse 104 H 04/18/25 14:02 BP 134/90 H 04/18/25 14:02 Pulse Ox 99 04/18/25 14:02 Oxygen Delivery Method Room Air 04/18/25 14:02 BMI result Body Mass Index 48.2 Results Reviewed Results Reviewed: Laboratory Tests 07/24/24 11/23/24 08:30 15:10 WBC 14.5 H RBC 4.36 Hgb 12.8 Hct 39.3 Plt Count 347 ESR 67 H Sodium 141 Potassium 3.5 Chloride 105 Carbon Dioxide 26 BUN 9 Creatinine 0.65 AST 27 ALT 11 25-OH Vitamin D Total 20 L Laboratory Tests 01/30/24 05/08/24 05/30/24 07:32 13:29 13:11 JUAN JOSE Screen POSITIVE A JUAN JOSE Titer 1:80 H SS-A/Ro Antibody <1.0 NEG SS-B/La Antibody <1.0 NEG Sm (Marcial) Antibody <1.0 NEG SM/CORE SUCKER IgG Antibody <1.0 NEG Double Strand DNA Ab 1 Complement C3 174 Complement C4 37 HLA-B27 Negative Assessment & Plan Assessment & Plan (1) Fibromyalgia: Code(s): M79.7 - Fibromyalgia Plan: #Fibromyalgia Patient is a 29-year-old female here today for follow up. Exam consistent with fibromyalgia. No evidence to suggest autoimmune connective tissue disorder. Discussed the diagnosis of fibromyalgia and the natural history of fibromyalgia as well. We will try low-dose gabapentin to see if there is any efficacy for her pain as well as her pins and needle sensation in her legs. Patient also asked about degenerative changes noticed on her spine and she did not abdominal CT. I discussed these changes with her and that it is likely that she has a family history of osteoarthritis/degenerative disease and that this will likely progress as time goes on. If she continues to complain of any back pain we can get dedicated images at that time Plan - Start gabapentin 100mg nightly - RTC 6 months Plan I spent 30 minutes reviewing the record and labs, taking a history, examining the patient, discussing the treatment plan, and documenting in the medical record Medications: New gabapentin 100 mg PO BEDTIME 90 caps 1RF M79.7 - Fibromyalgia Coding Level of Care Code Est Pt Level 4 (17868) Diagnoses Fibromyalgia M79.7
[2025-04-18 14:02] VITALS: BP 134/90; PULSE 104; O2SAT 99; BMI 48.2
== END 2025-04-18 14:48 | disposition home or self-care (01) ==
LOC: HO.RHES 13:43
PROVIDERS: PCP Family Medicine; Visit Provider Student in an Organized Health Care Education/Training Program
DX: M79.7 Fibromyalgia (principal)
CPT/HCPCS: 99214

== ENCOUNTER → 2025-04-18 13:43 | Outpatient (BNVA) | payer OTHER, SELFPAY | PROVIDERS: PCP Family Medicine; Visit Provider Student in an Organized Health Care Education/Training Program | DX: M79.7 Fibromyalgia (principal) | CPT/HCPCS: 99212 ==

== ENCOUNTER 2025-06-04 08:31 | Outpatient (AMB) | payer OTHER, SELFPAY ==
[2025-06-04 08:36] VITALS: BP 120/74; PULSE 109; O2SAT 99; BMI 46.4
--- NOTE | 2025-06-04 08:36 | A.OFFVIS_ITS ---
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 Accompanied by: Self / Same As Patient Allergies Seasonal Allergies Allergy (Severe, Verified 06/04/25 08:37) Hives amoxicillin Allergy (Mild, Verified 06/04/25 08:37) Abdominal Pain iv morphine Allergy (Severe, Uncoded 11/23/24 14:57) Rash Medication List - Last Reconciled 06/04/25 by DONTA Castellon acetaminophen ER 650 mg PO TID albuterol sulfate 90 mcg/actuation 2 puffs inhalation Q4-6H PRN benzonatate 200 mg PO BID PRN cetirizine 10 mg PO DAILY cholecalciferol (vitamin D3) 50 mcg (2 x 25 mcg (1,000 unit)) PO DAILY 30 days famotidine 20 mg PO BID gabapentin 100 mg PO BEDTIME ibuprofen 800 mg PO TID ipratropium bromide intranasal magnesium oxide 400 mg PO BEDTIME 90 days multivitamin (Daily Multi-Vitamin tablet) 1 tab PO DAILY naratriptan take 1/2 - 1 tab at onset of headache; if no relief may repeat 1 tab after at least 4 hrs; max = 2 tabs/24 hrs orally PRN; 30 days ondansetron HCl 4 mg PO Q4H PRN 30 days MDD 4 tabs pantoprazole 40 mg PO DAILY phentermine 37.5 mg PO DAILY riboflavin (vitamin B2) 400 mg PO DAILY 30 days rosuvastatin 5 mg PO DAILY 30 days sennosides-docusate sodium 8.6-50 mg (Senexon-S) 1 tab-cap PO BEDTIME topiramate 100 mg (2 x 50 mg) PO BID 90 days ubrogepant (Ubrelvy) 50 - 100 mg (0.5 - 1 x 100 mg) PO ONCE PRN 30 days Do you need a note to return to daycare/school/sports/work: No HPI Comments Details: Right-handed 28-yr-old female presents for f/u of migraine, right ON s/s. She had a [facility] ER visit for chest pain s/s- was dx'd w/ constipation. However, she is concerned regarding the other abd CT findings, including ? of Mild fluid in the upper abdomen is nonspecific and may reflect mild mesenteric adenitis and/or pancreatitis. She had f/u GI appt at [place]- and upper endoscopy was read as normal. But she is still having significant GERD.And is thinking about transferring care to [facility]. She has had rheumatology consult, who dx'd her with fibromyalgia and plans to revisit a question of arthritis. 08/01/2024 in-lab PSG was normal, which showed: AHI 3/hr w/ O2 Curt 90%, light snoring, PLMS 4/hr, and PLMS arousal index 0.1/hr. Pt reports she was off of her Topiramate for about a month, as she was waiting for her pharmacy to refill her Topiramate. However, she resumed Topiramate several weeks ago. Her PCP started her on Phentermine in hopes that losing some weight would help to lessen her GI discomfort s/s. She had the initial [facility] weight loss clinic, but did not have their contact info to make the f/u appt- but for now prefers to continue working w/ her PCP office. She notes she has not been exercising, but has lost weight since starting Phentermine. However her GI s/s have not improved yet. The Phentermine is causing dry mouth. She is currently having increased migraine days, now having 3-4 migraine days per week, where a migraine can last 1-2 days each. Ubrelvy is usually effective right, may use with naratriptan as needed 07/16/2024, HPI: Patient reports the following interval medical changes: She did have a bought of bronchitis in June and was recently tx'd for a bilateral ear infection. She is waiting on an ENT referral for perception of bilateral, right worse than left, ear decreased hearing, feeling of being underwater, frequent ear popping, and occasional ear pain. Interval workup includes: 03/29/24 MR/MR head/brain wo/w con: Normal 03/29/24 XR/XR cervical spine w flex/ext: Mild spondylosis in the lower cervical spine. 01/24/2024 initial labs were notable initial lab results were notable for marked elevated ESR 64, CRP > 20, elevated ferritin 160. Vitamin-D 21 low. Vitamin B12 low normal 315 with normal methylmalonic acid and homocystine level. 01/30/2024 follow-up lab work was notable for positive JUAN JOSE 1:80 with Nuclear, dense fine speckled pattern. Since, patient has had cardiology consult, who advised pt to undergo echocardiogram (I am unable to access results today), lipid panel which showed CHO 173 NL, LDL direct 120 H, LDL calc 118 H, HDL 35L, and to try to lose weight. She has done a [facility] [facility] weight loss program before, which was included diet modifications and an exercise plan. She had lost significant weight on this program, however when her father passed she stopped the program and has since gained even more weight back. She is open to restarting the program. She previously had a psychotherapist. She also had rheumatology consult for further evaluation of positive JUAN JOSE- who felt that she has fibromyalgia, and advised her to have a follow-up sleep study. 2022 HST results reviewed, inconclusive. She continues to endorse snoring, Fatigue, fragmented sleep Restless sleep, Leg Cramps- worse at night. Patient was also started on vitamin-D supplement. She has been doing PT, which was helpful. She states her migraines are better, now having less migraines, now having 4 migraine days per month. Can still have some allodynia, especially of her hair is in a ponytail. She can still have an occasional right occipital region shooting pain- wonders if it is triggered by wearing a tight bun at work. She is compliant w/ B2, Mag, and Topamax- and tolerated it well. Denies feeling decreased appetite since starting topiramate, if anything she feels that she is snacking more. Naratriptan helps but does make her very sleepy and thus cannot take when not at home with someone to help her care for her children. 01/24/2024, Initial HPI: Pt reports she developed migraines in her early pre-teen years. Over time, the headaches have become more frequent and severe. She has not previously seen neurology. PMH and ROS are notable for:? General: Wears glasses. Has had weight fluctuation, has had more recent weight gain. Musculoskeletal disorders or injury: Neck- non-radiating, Back pain w/ right sided sciatica- thought to be d/t fell off a 4th floor stairwell railing down through the stairwell railing. Cramps:randomly during the day, w/wo activity- w/ walking/sitting. History of concussion/head injury: Possible concussion during the fall from the stairwell at age 12. Mood d/o: Anxiety, Depression Respiratory d/o: Asthma- activity induced CV: reports episodes of chest pain. Reports father dies at age 60 of sudden [place], mother has had 2 MIs before age 49. Neuro- tingling in bilateral cheeks through ears- not a/w headaches History of syncope- during a bout of appendicitis. GI d/o: GERD- has GI consult scheduled for Sep. Random nausea. 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 Constipation. Clotting or hematology d/o, Endocrine d/o, metabolic d/o, History of seizure or drop attacks. Lifestyle considerations: Sleep routine: Usual bedtime: 1-2am and wake-up time: 6am Sleep difficulties: Endorses: Snoring, Fatigue, fragmented sleep Restless sleep, Leg Cramps- worse at night. Had a home sleep study in the last 3 yrs at [facility]- normal. Caffeine use: a lot - 1 large ice coffee a day, 4 cans of pepsi or coke per afternoon/evening, and drinks a lot of water. Substance use: Alcohol- socially, wine cooler at times, mixed drink at times. 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 Has 2 children- dtr 9, son 6yr old. Headache questionnaire:? Previous work-up: none Types of headache disorders: 2 Typical headache characteristics: Headache 1: Prodrome symptoms: Photophobia Aura: sees white dots/blurry vision, or rarely everything goes black- before/during the attack Pain intensity: moderate-severe Location, quality, characteristics: Diffuse pulsating/throbbing pain, mostly in the right frontal and retro-orbital, but also bitemporal or holocranial Associated symptoms: photophobia, phonophobia, allodynia, nausea, vomiting, not right in space dizziness, lightheadedness, fatigue, cognitive difficulties, activity intolerance, yawning. Bending over exacerbates headache. Postdrome: residual exhaustion Triggers: poor fluid intake, poor sleep, stress, weather changes, altitude changes Time of day: No specific time of day- is prone to waking up w/ headache Duration and Frequency: 5 migraine days per week. How does headache impact your life? Tries not to miss work, but misses family activities. Headache 2: Standing up can cause a sudden sharp left or right occipital pain which will trigger a stabbing headache a/w nausea/lightheadedness. This can last 2.5 days, and then tapers off. Occurs once in a while - every other week or once a month. Current acute medication use/interventions: Nothing Current preventative medication use: Nothing Non-pharmacological interventions: Ice, cold showers, rest, peppermint tea. PFSH Medical History Acid reflux Asthma Migraine Surgical History Hx of appendectomy Family History Mother Myocardial infarct HTN (hypertension) Arthritis Lupus Ovarian ca Type 2 diabetes mellitus Father Mental disorder Asthma Maternal Grandfather Myocardial infarct Maternal Grandmother Myocardial infarct Paternal Grandfather Diabetes Alzheimer disease Daughter Autism Social History Alcohol intake: current Alcohol intake frequency: holidays/special occasions only Patient Tobacco Use Status: Former Tobacco user Physical Exam Vital Signs: Last Vital Signs Pulse 109 H 06/04/25 08:36 BP 120/74 06/04/25 08:36 Pulse Ox 99 06/04/25 08:36 Oxygen Delivery Method Room Air 06/04/25 08:36 BMI result Body Mass Index 46.4 Const Orientation/consciousness: patient oriented x3 Resp Effort & Inspection: normal respiratory effort and able to speak in complete sentences Neuro General: patient oriented x3 Cranial nerves: Yes CN's II-XII intact bilaterally Cognition (Neuro): normal cognition Gait exam (Neuro): Normal gait present Motor exam (neuro): 5/5 motor strength present throughout Psych Appearance: grossly normal Mental Status: mental status grossly normal Speech and movement: Normal speech and movement present Affect: normal affect Attitude: cooperative Thought process: Normal thought process present Assessment & Plan Assessment & Plan (1) Migraine with aura: Code(s): G43.109 - Migraine with aura, not intractable, without status migrainosus Category: Medical Qualifiers: Status migrainosus presence: without status migrainosus Intractability: not intractable Qualified Code(s): G43.109 - Migraine with aura, not intractable, without status migrainosus (2) Occipital neuralgia: Code(s): M54.81 - Occipital neuralgia Category: Medical Qualifiers: Laterality: unspecified laterality Qualified Code(s): M54.81 - Occipital neuralgia (3) Cervicalgia: Code(s): M54.2 - Cervicalgia Category: Medical (4) Snoring: Code(s): R06.83 - Snoring Category: Medical (5) Nocturnal leg cramps: Code(s): G47.62 - Sleep related leg cramps Category: Medical Plan Cardiology notes, lipid panel results showing mildly elevated LDL and low HDL. * Continue to adhere to a heart healthy diet engaging in regular physical activity, including 30-45 minutes of cardiovascular exercise at least 5 days a week. * Continue weight management strategies w/ PCP- may try OTC Xylimelts for dry mouth * Hold [facility] weight management clinic f/u for now * Follow-up with cardiology as needed Rheumatology notes- fibromyalgia, ? arthritis * Encourage patient to increase regular physical activity, as this is been shown to be the most effective treatment for fibromyalgia. * Follow-up with rheumatology as scheduled For sleep: Reviewed In-lab PSG- no evidence for sleep apnea and periodic limb movements of sleep. ENT consult, as ordered by PCP. For overall headache management: * Optimize good self-care, including but not limited to maintaining a healthy diet, adequate fluid intake, adequate sleep, and engaging in regular physical activity. * Track headaches, especially after any treatment regimen changes. Migraine [employer] is one of many headache tracking apps. * Information shared on non-pharmacological interventions which may help to alleviate headache attack burden. For light sensitivity: Patient may benefit from trying blue light filtering glasses, green glasses, green light therapy. For occipital region headache: C-spine w/ f/ex/ext x-ray- mild lower cervical spondylosis. Continue PT exercises Future considerations- ON block For acute migraine headache treatment: Discussed importance of taking acute medications at the first sign of headache, however stressed importance of avoiding acute medication overuse (especially with combined headache medications). May continue Naratriptan 2.5mg Q 4 hours p.r.n.- however uses limited due to patient experiences marked sleepiness from use. Continue Ubrogepant (Ubrelvy)- in hopes this is better tolerated than triptans have been from patient Instructions for Ubrogepant (Ubrelvy) 100mg tab, 1/2 - 1 tab (50-100mg) at onset of headache, may repeat in 2 hours. Max of 2 tabs (200mg) per 24 hours. May adjunct with OTC Tylenol 650mg q 4 hours, Ibuprofen 600mg q 6 hours, or Naproxen 440mg q 12 hrs prn. Potential adverse effects, include but are not limited to fatigue, nausea, dry mouth, constipation Previous acute migraine medication trials: Triptan: Sumatriptan 50mg- helped some but caused out of this world sensation. Naratriptan not always effective Acute migraine medication contraindications: Would avoid DHE until cardiology consult completed d/t family h/o heart dz. For headache prevention medication: Preventative medications should be taken routinely as prescribed for best effect, it may take several weeks for full effect to take effect. Continue vitamin-D supplement. Continue Riboflavin 400mg qam Continue Magnesium 400mg qhs Continue Topiramate 100 mg b.i.d. Start Emgality 120mg/ml auto-injection: * Loading dose: 240mg (2 120mg/ml auto-injections) via subcutaneous injection in 2 different sites). Then 30 days after loading dose, start Maintenance dose: 120mg (120mg/ml autoinjector) subcutaneous injection every month. * Patient requests injection training once Emgality available. Important considerations: * Emgality will likely require insurance prior authorization prior to receiving it from the pharmacy. * Potential side effects include allergic reaction and injection site reactions. * Emgality injection training educational video is available to view on [employer] * Store Emgality in the refrigerator in it's original packaging in order to protect from light. * Remove Emgality at least 1 hour prior to taking the injection. * Emgality can be left out of the fridge for?up to 7 days at a temperature not above 86?F. If either of these conditions are exceeded, then Emgality must be thrown away. * Once Emgality has been stored out of refrigeration, do not place it back in the refrigerator. Previous migraine prevention medication trials: Topiramate 25mg bid- ineffective. Migraine prevention medication contraindications: Caution w/ TCAs d/t family h/o cardiac dz. BBs d/t asthma dx. Will follow-up upon review of above and patient to follow-up in clinic in 6 months or sooner prn. Orders: Referrals Gastroenterology Referral K21.9 - Gastro-esophageal reflux disease without esophagitis, K46.9 - Unspecified abdominal hernia without obstruction or gangrene Medications: New galcanezumab-gnlm (Emgality Pen) Loading dose: 120 mg subcu injection x2 in alternate sites (total 240 mg). To be followed by maintenance dose of 120 mg subcu q.month. 240 mg (2 mL) subcut ONCE 2 mL 0RF 30 days Coding Level of Care Code Est Pt Level 4 (31984) Diagnoses Migraine with aura and without status migrainosus, not intractable G43.109 Status migrainosus presence: without status migrainosus Intractability: not intractable Occipital neuralgia, unspecified laterality M54.81 Laterality: unspecified laterality Cervicalgia M54.2 Snoring R06.83 Nocturnal leg cramps G47.62
--- OUTSIDE RECORDS SUMMARY | 2025-06-04 08:49 | XMS_ITS | Clinical Summary ---
Author Organization [employer] Address [address] [place] [address] Care Team Providers Care Objects Conservator Name Role Phone Unavailable Primary Care Provider [...] Apply topically 2 times daily. Active Sod Fluoride-Pota ssium Nitrate 1.1-5 % paste Otis teeth for 2 minutes, morning and night. Spit, do not rinse. Do not eat or drink anything for 30 minutes following brushing. 112 g 3 03/08/20 24 Active chlorhexidine (Peridex) 0.12 % solution Swish 15 mL morning and night for 1 minute. Spit, do not swallow. Do not eat or drink for 30 minutes following use. 473 mL 03/08/20 24 Active acetaminophen (Tylenol 8 Hour) 650 MG ER tablet TAKE 1 TABLET BY MOUTH EVERY 8 HOURS IF NEEDED FOR MODERATE PAIN FOR 10 DAYS DO NOT CRUSH/CHEW/SPLIT 30 tablet 05/09/20 25 Active acetaminophen (Tylenol 8 Hour) 650 MG ER tablet TAKE 1 TABLET BY MOUTH EVERY 8 HOURS IF NEEDED FOR MODERATE PAIN FOR 10 DAYS DO NOT CRUSH/CHEW/SPLIT 30 tablet 03/07/20 25 2024 Discontinued Active Problems Problem Noted Date Diagnosed Date Dental caries 03/08/2024 Missing teeth, acquired 03/08/2024 Dental calculus 05/26/2023 Dental caries on smooth surface limited to ename l 05/26/2023 Acute pulpitis 05/26/2023 Encounters Date Type Department Care Team Description 05/09/2025 Refill [facility] [address] [place] [address] Rudy Estes DDS 03/06/2025 Refill [facility] [address] [place] [address] Rudy Estes DDS from Last 3 Months [...] Mass Index - - Plan of Treatment Health Maintenance Due Date Last Done Comments Depression Screening 1995 HIV Screening 1995 Lipid Panel 1995 SDOH Screening 1995 Disability Screening 1995 Alcohol/Substance Use Screening 2007 Family Planning (PISQ) 2010 Hepatitis C Screening 2013 Pneumococcal Vaccine: Pediatrics (0 to 5 Years) and At-Risk Patients (6 to 49) Years (1 of 2 - PCV) 2014 Pap Smear 2016 Dental Oral Exam 09/08/2024 03/08/2024 Dental Prophylaxis 10/26/2024 04/26/2024 Dental X-Ray: Bitewings 03/09/2025 03/08/2024 COVID-19 Vaccine ( season) 2025 04/23/2021, 10/22/2020, 10/01/2020 Influenza Vaccine (#1) 2025 , 04/15/2021, 04/14/2021, Additional history exists Tobacco Screening 04/26/2025 04/26/2024 Dental X-Ray: Full [...] Completed 08/14/2020, 02/20/2020, 01/23/2020, Additional history exists Meningococcal B Vaccine Aged Out No l onger eligible based on patient's age to complete this topic RSV under 20 months Aged Out No [...] Most Recently Relevant to Health Maintenance Insurance [facility]
--- OUTSIDE RECORDS SUMMARY | 2025-06-04 08:50 | XMS_ITS ---
Author Name [facility] Organization Unknown Care Team Organization Name Specialty Phone Email Start Date End Da te [facility] DERRELL DIEHL Primary Care 02/21/20232023 [facility] NULL Primary Care 11/15/2022 02/27/2024 [facility] NULL Primary Care 07/19/2022 02/27/2024 [facility] Agustin Roth Primary Care 05/18/2022 02/27/2024
--- OUTSIDE RECORDS SUMMARY | 2025-06-04 08:50 | XMS_ITS | Data Portability ---
Author Organization [place] - [facility], Allergy Address [address] [place] [phone] Care Team Providers Care Life Enrichment Director Name Role Phone MOSHE SANTOS Referring Provider Assessment Encounter Date Assessment Date Assessment LastModified by Organization Details LastModified Time 04/22/2025 04/22/2025 Bilateral Myringotomy with Tympanostomy Tube Placement I discussed the risks, benefits and alternatives to tympanostomy and tubes, as well as the procedure itself, in detail. The surgical risks, including, though not limited to ear infection, permanent perforation, loss of hearing, postoperative drainage and allergic reactions to medication or materials as well as the anesthetic risks were discussed. We discussed the risk of penitentiary perforation following tube extrusion, with possible need for formal tympanoplasty in the future. We also discussed that if the tube remains in place for longer than 3 years, an additional procedure may be required to remove the tube. We discussed the need to maintain water precautions following this procedure for 2 weeks, then water precautions typically lifted. After full discussion, the patient would like to proceed with procedure. We will schedule time to do this in the office in the near future. [email or web address] Not available 04/22/2025 15:39:35 Plan of Treatment Reminders Order Date Submit Date Provider Last Modified By Organization Details Last Modified Time Details Appointments Establish ed 15 2024 11:30A M Yoan Rutherford, DO Not available Not available Not available Lab None recorded. Referral None recorded. Procedures None recorded. Surgeries None recorded. Imaging None recorded. Medication Orders None recorded. Patient TargetsNo targets recorded. Patient InstructionsNo instructions recorded. Reason for Referral None Reported. Results Created Date Observation Date Name Description Value Unit Range Abnormal Flag Note LastModifiedBy Organization Detail LastModifiedTime 04/22/20 25 audio gram No observ ation record ed. BARCODE Not Available 2024 16:41:45 Result Notes None recorded. Problems Name Problem SNOMED Code Status Onset Date Resolution Date Notes Provider Name and Address Organization Details Recorded Time Dysfunction of bilateral eustachian tubes 7170624217065 100 Active 2024 oYan Rutherford, DO 100 [facility],[place] [address], [place], [address], [facility] 13:01:47 Recurrent acute otitis media 350242883 Active 2024 Yoan Rutherford, DO 100 [facility],[place] [address], [place], [address], [facility] 13:01:51 Problem Notes None recorded. Procedures Surgical History Date Name Laterality Status Provider Name and Address Organization Details Recorded Time 04/22/2025 Comp Audio with Tymps - 22593 & 53606 completed BOBBY DELANEY, AUD 100 [facility], [place], [address], [facility] 04/22/2025 14:35:00 Imaging Results None recorded. Procedure Notes None recorded. Medical Equipment None Reported. Allergies Allergen ID Allergen Name Allergen Category Reaction Reaction Severity Criticality Documentation Date Start Date Code Code System Note Provider Name and Address Organization Details Recorded Time 030589 morphine medicatio n Not available Not available Not available 04/22/2025 7052 RxNorm JUDY COMPhi wray [facility] 15:01:30 728031 amoxicill in medicatio n Not available Not available Not available 04/22/2025 723 RxNorm JUDY COMI kamala [facility] 15:01:37 Medications Name Sig Start Date Stop Date Status Note LastModified by Organization Details LastModified Time prednisone 10 mg tablet PLEASE SEE ATTACHED FOR DETAILED DIRECTION S 04/22 completed Not Available Not Available Not Available cetirizine 10 mg tablet TAKE 1 TABLET BY MOUTH DAILY NEEDED FOR ALLERGIES FOR UP TO 360 DAYS. active Not Available Not Available No t Available fluconazole 150 mg tablet TAKE 1 TABLET (ORAL) DAILY TAKE 1 NOW, IF STILL SYMPTOMS IN 2-3 DAYS, TAKE ADDITIONA L TABLET 04/22 completed Not Available Not Available Not Available benzonatate 200 mg capsule TAKE 1 CAPSULE BY MOUTH 2 TIMES A DAY NEEDED FOR COUGH 04/22 completed Not Available Not Available Not Available ondansetron HCl 4 mg tablet TAKE 1 TABLET (ORAL) EVERY 6 TO 8 HOURS (NAUSEA AND VOMITING) active Not Available Not Available No t Available prednisone 20 mg tablet TAKE 2 TABLETS (40MG) BY MOUTH ONCE DAILY 04/22 completed Not Available Not Available Not Available phentermine 15 mg capsule TAKE 1 CAPSULE BY MOUTH DAILY FOR 2 WEEKS AND THEN INCREASE TO 2 CAPSULES DAILY. active Not Available Not Available No t Available metronidazo le 500 mg tablet TAKE 1 TABLET BY MOUTH TWICE A DAY FOR 7 DAYS 04/22 completed Not Available Not Available Not Available acetaminoph en ER 650 mg tablet,exte nded release TAKE 1 TABLET BY MOUTH EVERY 8 HOURS IF NEEDED FOR MODERATE PAIN FOR 10 DAYS DO NOT CRUSH/CARTER W/SPLIT active Not Available Not Available No t Available amoxicillin 875 mg tablet TAKE 1 TABLET BY MOUTH TWICE A DAY FOR 7 DAYS 04/22 completed Not Available Not Available Not Available famotidine 20 mg tablet TAKE 1 TABLET BY MOUTH 2 TIMES DAILY NEEDED FOR HEARTBURN . active Not Available Not Available No t Available magnesium oxide 400 mg (241.3 mg magnesium) tablet TAKE 1 TABLET BY MOUTH BEDTIME FOR 30 DAYS MAY HOLD FOR LOOSE STOOLS active Not Available Not Available No t Available phenazopyri dine 100 mg tablet TAKE 1 TABLET BY MOUTH THREE TIMES A DAY FOR 3 DAYS 04/22 completed Not Available Not Available Not Available pantoprazol e 40 mg tablet,chavo yed release PLEASE SEE ATTACHED FOR DETAILED DIRECTION S active Not Available Not Available No t Available erythromyci n 5 mg/gram (0.5 %) eye ointment PLACE 1 CM (OPHTHALM IC (EYE)) 4 TIMES PER DAY FOR 10 DAYS 04/22 completed Not Available Not Available Not Available nitrofurant oin macrocrysta l 100 mg capsule TAKE 1 CAPSULE BY MOUTH TWICE A DAY MUST ADMINISTE R WITH A MEAL/FOOD 04/22 completed Not Available Not Available Not Available omeprazole 20 mg capsule,del ayed release TAKE 1 CAPSULE BY MOUTH DAILY NEEDED (ACID REFLUX.). active Not Available Not Available No t Available diclofenac sodium 50 mg tablet,chavo yed release TAKE 1 TABLET BY MOUTH TWICE A DAY WITH FOOD active Not Available Not Available No t Available gabapentin 100 mg capsule TAKE 1 CAPSULE BY MOUTH EVERYDAY AT BEDTIME active Not Available Not Available No t Available ergocalcife rol (vitamin D2) 1,250 mcg (50,000 unit) capsule TAKE 1 CAPSULE (50,000 UNITS TOTAL) BY MOUTH ONCE WEEKLY active Not Available Not Available No t Available ondansetron 4 mg disintegrat ing tablet TAKE 1 TABLET BY MOUTH EVERY 4 HOURS NEEDED FOR NAUSEA 04/22 completed Not Available Not Available Not Available naratriptan 2.5 mg tablet PLEASE SEE ATTACHED FOR DETAILED DIRECTION S active Not Available Not Available No t Available ipratropium bromide 21 mcg (0.03 %) nasal spray INSTILL 2 SPRAYS IN EACH NOSTRIL EVERY 12 HOURS active Not Available Not Available No t Available phentermine 37.5 mg capsule TAKE 1 CAPSULE BY MOUTH 1 (ONE) TIME EACH DAY BEFORE BREAKFAST . MAX DAILY AMOUNT: 37.5 MG active Not Available Not Available No t Available amoxicillin 875 mg-potassiu m clavulanate 125 mg tablet TAKE 1 TABLET BY MOUTH TWICE A DAY FOR 7 DAYS 04/22 completed Not Available Not Available Not Available Ventolin HFA 90 mcg/actuati on aerosol inhaler INHALE 2 PUFFS EVERY 4 TO 6 HOURS NEEDED FOR SHORTNESS OF BREATH OR FOR WHEEZE active Not Available Not Available No t Available Vitamin D3 25 mcg (1,000 unit) capsule TAKE 2 CAPSULES BY MOUTH DAILY active Not Available Not Available No t Available rosuvastati n 5 mg tablet TAKE 1 TABLET BY MOUTH EVERY DAY active Not Available Not Available No t Available topiramate 50 mg tablet 100 MG (2 X 50 MG) ORALLY 2 TIMES A DAY FOR 90 DAYS active Not Available Not Available No t Available nitrofurant oin monohydrate /macrocryst als 100 mg capsule TAKE 1 CAPSULE BY MOUTH TWICE A DAY active Not Available Not Available No t Available emtricitabi ne 200 mg-tenofovi r disoproxil fumarate 300 mg tablet TAKE 1 TABLET BY MOUTH EVERY DAY active Not Available Not Available No t Available chlorhexidi ne gluconate 0.12 % mouthwash SWISH 15 ML MORNING AND NIGHT FOR 1 MINUTE. SPIT OUT DONT EAT OR DRINK FOR 30 MINS FOLLOWING USE active Not Available Not Available No t Available Gavilax 17 gram/dose oral powder TAKE 17 GRAMS BY MOUTH EVERY DAY 04/22 completed Not Available Not Available Not Available Senexon-S 8.6 mg-50 mg tablet TAKE 1 TABLET BY MOUTH 1 (ONE) TIME EACH DAY IF NEEDED FOR CONSTIPAT ION. active Not Available Not Available No t Available riboflavin (vitamin B2) 400 mg tablet TAKE 1 TABLET BY MOUTH EVERY DAY active Not Available Not Available No t Available Ubrelvy 100 mg tablet PLEASE SEE ATTACHED FOR DETAILED DIRECTION S active Not Available Not Available No t Available Vitals Date Recorded Body height Body mass index (BMI) Body weight Provider Name and Address Organization Details Last Updated DateTime 04/22/2025 160.02 cm 48.2 kg/m2 206277.12 g [facility] 04/22/2025 15:01:21 Social History None recorded. Functional Status None recorded. Mental Status None recorded. Family History Nothing Reported. Medical History No medical history recorded. Gynecological HistoryNo gynecological history recorded. Obstetrics History GPAL:G 0 P 0 0 0 0 Past Encounters Encounter ID Performer Location Encounter Start Date Encounter Closed Date Diagnosis/Indication Diagnosis SNOMED-CT Code Diagnosis ICD10 Code Diagnosis IMO Codes Diagnosis Note [id number] Yoan Rutherford DO [facility] of [address] [address] 04/22/2025 14:17:31 04/22/2025 16:44:08 Dysfunction of bilateral eustachian tubes 5730750635 194747 H69.93 [id number] Audiologic al evaluation results: 04/22/2025 Right ear: Mild low frequency conductive hearing loss with excellent word recognitio n. Left ear: Mild low frequency conductive hearing loss with excellent word recognitio n. Tympanomet ry: Right Ear:Type B Left Ear:Type B Recurrent acute otitis media 916957616 H66.90 075174 Health Concerns Section Related Observation LastModified by Organization Detai ls LastModified Time None Recorded Concern Status LastModified by Organization Details LastModified Time None Recorded Advance Directives Directive None Recorded Payers Insurance Date Sequence Insurance Name Policy Number Policy Leung Covered Member ID Leung Member ID Guarantor Name 04/22/2025 1 [facility] (MEDICAID REPLACEMENT - HMO) SWATI Larson [id number] Padma Larson Notes Date Note Type Note Provider Name and Address Organization Details Recorded Time 04/22/2025 text/html ROS as noted in the HPI The patient presents with family for otologic concerns. Muffled hearing for years many infections as a kid. Folks at work repeat themselves. Episodes per year: 2-3Episodes per last 6-months:Hearing loss: YesCourses of Abx/Steroids: NoneOther interventions: Steroid Victor, Zyrtec as well which havent helped.Passed Hearing Screen: YesPrior ear surgery: NoFMhx Hearing loss: No Yoan Rutherford, DO 100 [facility],[place] [address], [place], [address], [facility] - [facility] 04/22/2025 15:39:49 OBGyn Episode No OBEpisode recorded.
--- OUTSIDE RECORDS SUMMARY | 2025-06-04 08:50 | XMS_ITS | Encounter Summary ---
Author Organization [email or web address] Address [address] [place] [address] [address] [place] [address] Care Team Providers Care Freight Weigher Name Role Phone Unavailable Primary Care Provider Unavailabl e Reason for Visit * Reason Comments Med Refill Encounter Details Date Type Department Care Team (Late st Contact Info) Description 05/09/2025 Refill [facility] [address] [place], [place] [phone] Rudy Estes DDS [address] [place], [place] [phone] Social History Tobacco Use Types Packs/Day Years [...] Telephone Encounter - Rudy Estes DDS - 05/09/2025 11:56 AM EDT Approving, but needs appt for additional refills. documented in this encounter Plan of Treatment Not on file documented as of this encounter Visit Diagnoses Not on filedocumented in this encounter
--- OUTSIDE RECORDS SUMMARY | 2025-06-04 08:50 | XMS_ITS | Encounter Summary ---
Author Organization [employer] Address [address] [place] [address] [address] [place] [address] Care Team Providers Care Geophysics Scientist Name Role Phone Unavailable Primary Care Provider Unavailabl e Reason for Visit * Reason Comments Med Refill Encounter Details Date Type Department Care Team (Late st Contact Info) Description 06/25/2024 Refill [facility] [address] [place], [place] [phone] Rudy Estes DDS [address] [place], [place] [phone] Social History Tobacco Use Types Packs/Day Years [...]
--- OUTSIDE RECORDS SUMMARY | 2025-06-04 08:50 | XMS_ITS | Encounter Summary ---
Author Organization [employer] Address [address] [place] [address] [address] [place] [address] Care Team Providers Care Processing Tech Name Role Phone Unavailable Primary Care Provider Unavailabl e Reason for Visit * Reason Comments Med Refill Encounter Details Date Type Department Care Team (Late st Contact Info) Description 09/16/2024 Refill [facility] [address] [place], [place] [phone] Rudy Estes DDS [address] [place], [place] [phone] Social History Tobacco Use Types Packs/Day Years [...] Telephone Encounter - Rudy Estes DDS - 09/17/2024 7:22 AM EDT Approving, but needs appt for additional refills. documented in this encounter Plan of Treatment Not on file documented as of this encounter Visit Diagnoses Not on filedocumented in this encounter
--- OUTSIDE RECORDS SUMMARY | 2025-06-04 08:50 | XMS_ITS | Continuity of Care Document ---
Author Organization [place] - [facility], [facility] Address [address] [place] [address] Care Team Providers Care Warehouse Logistics Coordinator Name Role Phone MOSHE SANTOS Referring Provider [phone] Assessment Encounter Date Assessment Date Assessment LastModified [...] were discussed. We discussed the risk of senior living perforation following tube extrusion, with possible need [...] Recorded Time Dysfunction of bilateral eustachian tubes 9944437315096 100 Active 2024 Yoan Rutherford, DO 100 [facility],[place] [address], [place], [address], [facility] 13:01:47 Recurrent acute otitis media 107788898 Active 2024 Yoan Rutherford, DO 100 [facility],[place] [address], [place], [phone], [facility] 13:01:51 Problem Notes None recorded. Procedures Surgical History Date Name Laterality Status Provider Name and Address Organization Details Recorded Time 04/22/2025 Comp Audio with Tymps - 57770 & 66600 completed BOBBY DELANEY, AUD 100 [facility] [address], [place], [address], [facility] 04/22/2025 14:35:00 Imaging Results None recorded. Procedure Notes None recorded. Medical Equipment None Reported. Allergies Allergen ID Allergen Name Allergen Category Reaction Reaction Severity Criticality Documentation Date Start Date Code Code System Note Provider Name and Address Organization Details Recorded Time 785650 morphine medicatio n Not available Not available Not available 04/22/2025 7052 RxNorm JUDY АННА wray [place] - [facility] 15:01:30 276721 amoxicill in medicatio n Not available Not available Not available 04/22/2025 723 RxNorm JUDY COMI kamala [facility] 15:01:37 Medications Name Sig Start Date [...] Updated DateTime 04/22/2025 160.02 cm 48.2 kg/m2 265994.12 g JUDY JJ [facility] 04/22/2025 15:01:21 Social History None recorded. Functional Status None recorded. Mental Status None recorded. Family History Nothing Reported. Medical History No medical history recorded. Gynecological HistoryNo gynecological history recorded. Obstetrics History GPAL:G 0 P 0 0 0 0 Past Encounters Encounter ID Performer Location Encounter Start Date Encounter Closed Date Diagnosis/Indication Diagnosis SNOMED-CT Code Diagnosis ICD10 Code Diagnosis IMO Codes Diagnosis Note [id number] Yoan Rutherford DO [facility] of [address] [address] 04/22/2025 14:17:31 04/22/2025 16:44:08 Dysfunction of bilateral eustachian tubes [id number] 773348 H69.93 [id number] Audiologic al evaluation results: 04/22/2025 Right ear: Mild low frequency conductive hearing loss with excellent word recognitio n. Left ear: Mild low frequency conductive hearing loss with excellent word recognitio n. Tympanomet ry: Right Ear:Type B Left Ear:Type B Recurrent acute otitis media 464821256 H66.90 459712 Health Concerns Section Related Observation LastModified by Organization Detai ls LastModified Time None Recorded Concern Status LastModified by Organization Details LastModified Time None Recorded Payers Encounter Date Sequence Insurance Name Policy Number Policy Leung Covered Member ID Leung Member ID Guarantor Name 04/22/2025 1 [facility] (MEDICAID REPLACEMENT - HMO) SWATI Larson [id number] Padma Larson Notes Date Note Type Note Provider Name and Address Organization Details Recorded Time 04/22/2025 text/html ROS as noted in the HPI The patient presents with family for otologic concerns. Muffled hearing for years many infections as a kid. Folks at work repeat themselves. Episodes per year: 2-3Episodes per last 6-months:Hearing loss: YesCourses of Abx/Steroids: NoneOther interventions: Steroid Vickery, Zyrtec as well which havent helped.Passed [place] Hearing Screen: YesPrior ear surgery: NoFMhx Hearing loss: No Yoan Rutherford, DO 100 [facility],[place] [address], [place], [address], [facility] - [facility] 04/22/2025 15:39:49 OBGyn Episode No OBEpisode recorded.
--- OUTSIDE RECORDS SUMMARY | 2025-06-04 08:50 | XMS_ITS | Encounter Summary ---
Author Organization [employer] Address [address] [place] [address] [address] [place] [address] Care Team Providers Care Zipper Sewing Machine Operator Name Role Phone Unavailable Primary Care Provider Unavailabl e Reason for Visit * Reason Comments Med Refill Encounter Details Date Type Department Care Team (Late st Contact Info) Description 03/06/2025 Refill [facility] [address] [place], [place] [phone] Rudy Estes DDS [address] [place], [place] [phone] Social History Tobacco Use Types Packs/Day Years [...] Telephone Encounter - Rudy Estes DDS - 03/07/2025 7:32 AM EDT Approving, but needs appt for additional refills. documented in this encounter Plan of Treatment Not on file documented as of this encounter Visit Diagnoses Not on filedocumented in this encounter
--- OUTSIDE RECORDS SUMMARY | 2025-06-04 08:50 | XMS_ITS | Clinical Summary ---
Author Organization [facility] [address] [facility] l[address] Address [address] [place] [address] Phone Care Team Providers Care Leaf Binner Name Role Phone Nichol Rich MD Primary Care Provider Allergies Active Allergy Reactions Criticality Noted Date Comments Amoxicillin Diarrhea 12/07/2024 Morphine 10/04/2023 Burning sensation Medications acetaminophen (TYLENOL 8 HOUR) 650 mg 8 hr tablet PLEASE SEE ATTACHED FOR DETAILED DIRECTIONS 05/26/20 23 Active cholecalciferol (VITAMIN D-3) 25 mcg (1,000 unit) capsule Take 1 capsule (1,000 Units total) by mouth 1 (one) time each day. 02/01/20 24 Active EPINEPHrine (EpiPen 2-Nikolas) 0.3 mg/0.3 mL injection Inject 0.3 mL (0.3 mg total) as directed. 12/01/19 23 Active etonogestrel-elu ting contraceptive device (Nexplanon) 68 mg implant subdermal implant Inject 1 each under the skin. 03/20/20 24 Active ibuprofen (ADVIL,MOTRIN) 400 mg tablet Take 2 tablets (800 mg total) by mouth. 09/22/19 18 Active magnesium aspart,citrate,o xide (Triple Magnesium Complex) 400 mg magnesium capsule Take by mouth. Active naratriptan (AMERGE) 2.5 mg tablet Take 1 tablet (2.5 mg total) by mouth. Active topiramate (TOPAMAX) 50 mg tablet Take 1 tablet (50 mg total) by mouth 2 (two) times a day. Active multivit-min/iro n/folic acid/K (ADULTS MULTIVITAMIN ORAL) Take by mouth. Active pantoprazole (PROTONIX) 40 mg EC tablet Take 1 Tablet by mouth daily. Take in am on empty stomach, wait 30 mins and then eat to activate the medication 05/04/20 24 Active ubrogepant (Ubrelvy) 100 mg tablet Take 1 tablet (100 mg total) by mouth 1 (one) time. Active triamcinolone (NASACORT) 55 mcg nasal inhalerIndicatio ns:Ear popping, bilateral Administer 2 sprays into each nostril 1 (one) time each day. 10.8 mL 1 07/24/19 25 Active coenzyme Q-10 30 mg capsule Take 1 capsule (30 mg total) by mouth 1 (one) time each day. Active rosuvastatin (CRESTOR) 5 mg tablet Take 1 tablet (5 mg total) by mouth 1 (one) time each day. 10/31/19 25 Active ondansetron (ZOFRAN) 4 mg tablet 02/16/20 25 Active cetirizine (ZyrTEC) 10 mg tablet TAKE 1 TABLET BY MOUTH DAILY NEEDED FOR ALLERGIES FOR UP TO 360 DAYS. 90 tablet 1 02/21/20 25 Active phentermine 37.5 mg capsuleIndicatio ns:Morbid obesity (CMS/HCC V24, CMS/HCC V28) Take 1 capsule (37.5 mg total) by mouth 1 (one) time each day before breakfast. Max Daily Amount: 37.5 mg 30 each 1 04/10/20 25 Active senna-docusate (PERICOLACE) 8.6-50 mg per tabletIndication s:Constipation, unspecified constipation type Take 1 tablet by mouth 1 (one) time each day if needed for constipation. 30 each 2 04/10/20 25 Active famotidine (PEPCID) 20 mg tablet Take 1 tablet (20 mg total) by mouth 2 (two) times a day. Take 1 Tablet by mouth 2 times daily as needed for Heartburn. 180 each 3 04/29/20 25 026 Active ipratropium (ATROVENT) 21 mcg (0.03 %) nasal sprayIndications :Nasal congestion INSTILL 2 SPRAYS IN EACH NOSTRIL EVERY 12 HOURS 30 mL 06/03/20 25 Active ipratropium (ATROVENT) 21 mcg (0.03 %) nasal sprayIndications :Nasal congestion USE 2 SPRAYS BY NASAL ROUTE EVERY 12 HOURS 30 mL 3 10/16/19 25 025 Discontinued Active Problems Problem Noted Date Diagnosed Date Severe episode of recurrent major depressive disorder, without psychotic features ([facility] V24, [facility] V28) 07/06/2022 Chest pain in adult 06/25/2021 Costochondritis 06/25/2021 Vitiligo 08/15/2020 Overview (05/04/2024): Biopsy 08/15/20- No sx, diagnosed on AG Last Assessment & Plan: Continue to use Mycolog prn. Asthma 01/16/2020 Migraine 01/16/2020 Encounters Date Type Department Care Team Description 04/10/2025 8:00 AM EDT Office Visit Adult Medicine [address] [phone] Jean Claude Mann, [place] Morbid obesity ([facility] V24, [facility] V28) (Primary Dx); Constipation, unspecified constipation type from Last 3 Months Immunizations Immunization Administration Dates Next Due DTaP (Infanrix) 6wks to less than 7yo ,09/10/1996,02/21/1996,12/20,1995 [id number] (Pentacel) 2mo to less than 5yo 02/20/2006,08/05/2005,09/10/1996,12/20 H1N1 Inj Preservative Free 08/20/2009 HPV, Quadrivalent 08/20/2009,04/15/2009,02/26/20 08 Hep A, Unspecified 04/15/2009,02/26/2008 Hep B, Unspecified 02/21/1996,1995, 995 Hepatitis A Vaccine, Pediatr ic Dosage, Unspecified Formulation 04/15/2009 Hepatitis B (Gchdqoy-[id number]-Gyfbf , Recombivax HB-Adult) 19yo and older 08/14/2020,02/20/2020,01/23/2020 Hepatitis B Pediatric (Enger ix B; Recombivax HB) to less than 20 yo 02/21/1996,1995,1995 HiB 02/20/2006, 6,09/10/1996,12/20 IPV Inactivated polio (Ipol) 6wks and older 12/20/2005,07/22/1999,02/21/1996,08/05 Influenza Quadravalent, MDCK , 0.5ml, preservative free (Flucelvax) 6mo and older 04/22/2023,04/04/2020,04/25/2017 Influenza Quadrivalent, 0.5m l, preservative free (Fluarix; FluLaval; Fluzone) ages 6mo and older (Afluria) 3yo and older 04/14/2021 Influenza Whole 06/02/2012 Influenza trivalent, 0.5mL, preservative free (Fluarix; FluLaval; Fluzone) ages 6mo and older (Afluria) 3 years and older 04/15/2021,04/14/2021 Influenza trivalent, with pr eservative (Fluzone; Afluria) 6mo and older 04/14/2021,04/04/2020,04/19/2014,03/20,05/25/2011,07/14/2010 Influenza, Unspecified 04/22/2023,04/15/2021, MMR, measles mumps and rubel la Live (Priorix; M-M-R II) 12mo and older 04/03/2021,03/03/2021,07/22/1999,06/06 Meningococcal MCV4P 02/26/2008 Meningococcal Polysaccharide 07/24/2013 Meningococcal, Unspecified 02/26/2008 Td Tetanus diptheria (Tdvax) 7yo and older 03/21/2017 Td, Unspecified 03/21/2017 Tdap Tetanus diptheria acell ular pertussis (Boostrix; Adacel) 7yo and older 07/27/2017,03/29/2014,02/26/2008,02/25 Varicella live (Varivax) 12m o and older 02/26/2008,09/10/1996 Surgical History Surgery Date Site/Laterality Comments APPENDECTOMY 02/2016 PROCEDURE: HISTORICAL APPENDECTOMY Medical History Medical History Date Comments Asthma 01/16/2020 DX:Asthma Morbid obesity with BMI of 4 5.0-49.9, adult [place] [place] [facility] [place] 01/16/2020 DX:Morbid obesity wit h BMI of 45.0-49.9, adult ([facility]) Migraine 01/16/2020 DX:Migraine Severe episode of recurrent major depressive disorder, without psychotic features ([facility] V24, [facility] V28) 07/06/2022 DX:Severe episode of recurrent major depressive disorder, without psychotic features ([facility]) Costochondritis 06/25/2021 DX:Costochondrit is Chest [...] Years Used Date Smoking Tobacco: Former Cigarettes 0 Q uit: 09/12/2020 Smokeless Tobacco: Never Tobacco Cessation:Counseling Given: Not Answered Alcohol Use Standard Drinks/Week Comments Yes 2 (1 standard drink = 0.6 oz pur e alcohol) OCASSIONAL Housing Instability Answer Date Recorde d Are [...] your loved ones. For example, child care associate or elderly care for an older adult? [...] Date Recorded What is your living situation? Unrecognized valu e 07/16/2024 Interpersonal Safety Answer Date Record ed Physical Abuse Unrecognized value 02/18/2025 Verbal Abuse Unrecognized value 02/18/2025 Comments No Sex and Gender Information Value Date Recorded Sex Assigned at Not on file Legal Sex Female 4:33 PM EST Gender Identity Not on file Sexual Orientation Not on file Obstetrics History Last Filed Vital Signs Vital Sign Reading Time Taken Comments Blood Pressure 110/80 04/10/2025 8:00 AM EDT Pulse 87 04/10/2025 8:00 AM EDT Temperature 36.1 C (97 F) 04/10/2025 8:00 AM EDT Respiratory Rate 18 02/18/2025 10:53 AM EDT Oxygen Saturation 96% 02/18/2025 10:53 AM EDT Inhaled Oxygen Concentration - - Weight 124 kg (274 lb) 04/10/2025 8:00 AM EDT Height 160 cm (5' 3 ) 04/10/2025 8:00 AM EDT Body Mass Index 48.54 04/10/2025 8:00 AM EDT Plan of Treatment Upcoming Encounters Date Type Department Care Team (Late st Contact Info) Description 06/12/2025 7:30 AM EST Office Visit Adult Medicine - [place] [address] [place] [phone] Jean Claude Mann PA [address] [place] [address] Health Maintenance Due Date Last Done Comments Pneumococcal Vaccine: Pediatrics (0 to 5 Years) and At-Risk Patients (6 to 49 Years) (1 of 2 - PCV) 2014 COVID-19 Vaccine (4 - season) 2025 04/23/2021, 10/22/2020, 10/01/2020 Influenza Vaccine (#1) 2025 , 04/22/2023, 04/15/2021, Additional history exists Social Influencers of Health Screening 07/16/2025 07/16/2024 Cervical Cancer Screening: Pap Smear 07/20/2026 07/20/2023, 07/20/2023, 05/23/2020 DTaP,Tdap,and Td Vaccines (14 - Td or Tdap) 07/27/2027 07/27/2017, 03/21/2017, 03/21/2017, Additional history exists Cholesterol Screening (Lipid Panel) 07/23/2029 07/23/2024, 07/20/2023 RSV Immunization Adult Patients (1 - 1-dose 75+ series) 2070 HIB Vaccines Completed 02/20/2006, 02/08, 08/05/2005, Additional history exists IPV Vaccines Completed 02/20/2006, 12/09, 08/05/2005, Additional history exists Varicella Vaccines Completed 02/26/2008, 09/10/1996 Hepatitis A Vaccines Completed 04/15/2009, 04/15/2009, 02/26/2008 HPV Vaccines Completed 08/20/2009, 10/12/2008, 02/26/2008 Meningococcal ACWY Vaccine Aged Out 07/24, 02/26/2008, 02/26/2008 No longer eligible based on patient's age to complete this topic HIV Screening Completed 05/23/2020 Hepatitis C Screening Completed 05/23/2020 Hepatitis B Vaccines Completed 08/14/2020, 02/20/2020, 01/23/2020, Additional history exists MMR Vaccines Completed 04/03/2021, 02/09, 07/22/1999, Additional history exists Depression Screening Completed 07/16/2024, 01/19/20 Meningococcal B Vaccine Aged Out No l onger eligible based on patient's age to complete this topic RSV Immunization Patients Under 20 months Aged Out No longer eligible based on patient's age to complete this topic Procedures Procedure Name Priority Date/Time Associated Diagnosis Comments LIPID PANEL WITH REFLEX TO DIRECT LDL Routine 07/23/2024 2:50 PM EST Adult general medical examination DEPRESSION SCREENING Routine 01/19/2024 PAP SMEAR Routine 07/20/2023 HEPATITIS C SCREENING Routine 05/23/2020 HIV SCREENING Routine 05/23/2020 from Last 3 Months or Most Recently Relevant to Health Maintenance Results * (ABNORMAL) Lipid panel with reflex to direct LDL (07/23/2024 2:50 PM EST) Cholesterol 153 0 - 200 mg/dL LAB CHEMISTRY METHOD 07/23/2024 6:33 PM EST [facility] Triglycerides 164(H) 0 - 150 mg/dL LAB CHEMISTRY METHOD 07/23/2024 6:33 PM EST [facility] HDL 34(L) >=40 mg/dL LAB CHEMISTRY METHOD 07/23/2024 6:33 PM EST [facility] LDL Calculated 86 0 - 100 mg/dL LAB CHEMISTRY METHOD 07/23/2024 6:33 PM EST [facility] VLDL Cholesterol Karri 32.8 mg/dL LAB CHEMISTRY METHOD 07/23/2024 6:33 PM EST [facility] Non HDL Chol. (LDL+VLDL) 119 <145 mg/dL LAB CHEMISTRY METHOD 07/23/2024 6:33 PM EST [facility] Chol/HDL Ratio 4.5(H) 0.0 - 4.4 LAB CHEMISTRY METHOD 07/23/2024 6:33 PM EST [facility] Blood Venous blood specimen / Unknown Venipuncture / Unknown 07/23/2024 2:50 PM EST 07/23/2024 2:50 PM EST Jean Claude LORENZO LAB BLOOD ORDERABLES Final Re sult [facility] [address] [place] [address], * Depression Screening (01/19/2024) Depression Screening abstracted Historical Provider HEALTH MAINTENANCE Final Result * Pap Smear (07/20/2023) Pap smear 3 yr fu [facility] Provider HEALTH MAINTENANCE Final Result * HIV Screening (05/23/2020) HIV Screening abstracted Historical Provider HEALTH MAINTENANCE Final Result * Hepatitis C Screening (05/23/2020) Pathologist [facility] Hepatitis C Screening abstracted Historical Provider HEALTH MAINTENANCE Final Result from Last 3 Months or Most Recently Relevant to Health Maintenance Insurance [address] [place] [address] [facility] Care Teams Leaf Binner Relationship Specialty Start Date End Date Nichol Rich MD [address] [place] [id number] PCP - General Internal Medicine 04/07/22
== END 2025-06-04 09:53 | disposition home or self-care (01) ==
LOC: HO.HSMS 08:32
PROVIDERS: PCP Family Medicine; Visit Provider Nurse Practitioner Family
DX: G43.109 Migraine with aura, not intractable, without status migrainosus (principal); M54.81 Occipital neuralgia; M54.2 Cervicalgia; R06.83 Snoring; G47.62 Sleep related leg cramps
CPT/HCPCS: 99214

== ENCOUNTER → 2025-06-04 08:31 | Outpatient (BNVA) | payer OTHER, SELFPAY | PROVIDERS: PCP Family Medicine; Visit Provider Nurse Practitioner Family | DX: G43.109 Migraine with aura, not intractable, without status migrainosus (principal); M54.81 Occipital neuralgia; M54.2 Cervicalgia; R06.83 Snoring; G47.62 Sleep related leg cramps | CPT/HCPCS: 99212 ==

== ENCOUNTER 2025-06-22 14:36 | Emergency (ER) | payer OTHER, SELFPAY ==
--- NOTE | ~2025-06-22 | XR_ITS ---
CLINICAL HISTORY: shortness of breath 2 view chest x-ray. Comparison: 11/23/2024 Findings: No consolidation or effusion. Cardiac and mediastinal contours are stable. Bones unremarkable. Impression: 1. No acute pulmonary disease. This document has been electronically signed by: Aiden Gaviria MD on 06/22/2025 16:19:46
[2025-06-22 15:26] VITALS: BP 168/92; PULSE 102; RESP 18; TEMP 36.8; O2SAT 98; BMI 46.3
--- NOTE | 2025-06-22 15:26 | ED.SOB ---
HPI - SOB/Dyspnea General Chief Complaint: Weakness Stated Complaint: SOB, abd pain, headache Time Seen by Provider: 06/22/25 17:43 Source: patient, EMS and old records reviewed Mode of arrival: ambulatory Limitations: no limitations History of Present Illness ED Provider: Eva Panda PA-C HPI Narrative: ? 30-year-old female presents with acute shortness of breath (SOB) that began yesterday morning after awakening. ? Describes inability to ?catch her breath? and pleuritic chest pain (pain with inspiration), not associated with cough. ? Reported intermittent wheezing yesterday; used rescue inhaler around 0200 with partial improvement and no current wheeze. ? Seen yesterday at her workplace urgent care; given Benadryl and Tylenol for presumed allergic reaction. No epinephrine or steroids were administered. ? Additional symptoms since yesterday: new cough, numbness/uprv-qtr-hyxmfzq sensation to perioral/face region, decreased oral intake due to stomach discomfort, and possible dehydration. ? Denies fever. No current rash; did have injection-site erythema at Emgality administration site Tuesday night which self-resolved and has not recurred. ? Past asthma in childhood; no current daily controller medications noted. ? Medications: Emgality (loading dose Tuesday for migraines); arm contraceptive implant. ? Emgality started for migraines; patient took loading dose on Tuesday. ? Work-up today planned for chest imaging and basic labs to rule out pulmonary embolism or other acute pathology. Review of Systems: ? Constitutional: No fever reported. ? Respiratory: Shortness of breath, chest pain with inspiration, cough onset yesterday; denies current wheezing. ? Cardiovascular: Chest discomfort as described; no palpitations reported. ? Dermatologic: Resolved injection-site redness; no generalized rash. ? Neurologic: Numbness/hkpg-jhj-grptjsu around face noted yesterday. ? GI: Stomach discomfort with attempts to eat/drink; decreased oral intake. ? : Denies dysuria. MD elicited complaint: shortness of breath and cough Related Data Home Medications ?Medication ?Instructions ?Recorded ?Confirmed acetaminophen 650 mg 650 mg PO TID 05/08/24 06/04/25 tablet,extended release cetirizine 10 mg tablet 10 mg PO DAILY 05/08/24 06/04/25 famotidine 20 mg tablet 20 mg PO BID 05/08/24 06/04/25 ibuprofen 800 mg tablet 800 mg PO TID 05/08/24 06/04/25 ipratropium bromide 21 mcg (0.03 intranasal 05/08/24 06/04/25 %) nasal spray multivitamin (Daily Multi-Vitamin 1 tab PO DAILY 05/08/24 06/04/25 tablet) pantoprazole 40 mg tablet,delayed 40 mg PO DAILY 05/08/24 06/04/25 release phentermine 37.5 mg capsule 37.5 mg PO DAILY 04/18/25 06/04/25 sennosides 8.6 mg-docusate sodium 1 tab-cap PO BEDTIME 04/18/25 06/04/25 50 mg tablet (Senexon-S) Previous Rx's ?Medication ?Instructions ?Recorded albuterol sulfate 90 mcg/actuation 2 puff inhalation Q4-6H PRN 06/22/24 aerosol inhaler shortness of breath or wheezing #6.7 grams benzonatate 200 mg capsule 200 mg PO BID PRN cough #14 caps 06/22/24 ondansetron HCl 4 mg tablet 4 mg PO Q4H PRN nausea and 09/05/24 vomiting 30 days #30 tabs rosuvastatin 5 mg tablet 5 mg PO DAILY 30 days #30 tabs 10/30/24 riboflavin (vitamin B2) 400 mg 400 mg PO DAILY 30 days #90 tabs 02/15/25 tablet cholecalciferol (vitamin D3) 25 50 mcg (2 x 25 mcg (1,000 unit)) 02/22/25 mcg (1,000 unit) capsule PO DAILY 30 days #90 caps magnesium oxide 400 mg (241.3 mg 400 mg PO BEDTIME 90 days #90 tabs 05/03/25 magnesium) tablet naratriptan 2.5 mg tablet See Rx Instructions PO .COMPLEX 05/10/25 PRN migraine headache 30 days #12 tabs ubrogepant 100 mg tablet (Ubrelvy) 50 - 100 mg (0.5 - 1 x 100 mg) PO 05/10/25 ONCE PRN migraine headache 30 days #16 tabs topiramate 50 mg tablet 100 mg (2 x 50 mg) PO BID 90 days 05/15/25 #360 tabs gabapentin 300 mg capsule 300 mg PO BID 90 days #180 caps 06/13/25 oseltamivir 75 mg capsule (Tamiflu) 75 mg PO BID 5 days #10 caps 06/22/25 oseltamivir 75 mg capsule (Tamiflu) 75 mg PO BID 5 days #10 caps 06/22/25 galcanezumab-gnlm 120 mg/mL 120 mg subcut QMONTH 30 days #1 mL 07/11/25 subcutaneous pen injector (Emgality Pen) Allergies Allergy/AdvReac Type Severity Reaction Status Date / Time Seasonal Allergies Allergy Severe Hives Verified 06/22/25 15:35 amoxicillin Allergy Mild Abdominal Verified 06/22/25 15:35 Pain iv morphine Allergy Severe Rash Uncoded 11/23/24 14:57 Review of Systems Review of Systems: Yes all other systems are reviewed and are negative [facility] Past Medical History Attestation statement: The following information was validated with the patient. Source: old records reviewed and nursing notes reviewed Medical History Acid reflux Asthma Migraine Surgical History Hx of appendectomy Family History Family History Mother Myocardial infarct HTN (hypertension) Arthritis Lupus Ovarian ca Type 2 diabetes mellitus Father Mental disorder Asthma Maternal Grandfather Myocardial infarct Maternal Grandmother Myocardial infarct Paternal Grandfather Diabetes Alzheimer disease Daughter Autism Social History Social History Alcohol intake: current Alcohol intake frequency: holidays/special occasions only Patient Tobacco Use Status: Former Tobacco user Advance Directives: No Advance Directives Information Provided: No Do you have a plan to hurt others: No Plan Physical Exam Exam: Exam: ? General: Sitting comfortably, speaking full sentences. Morbidly obese ? HEENT: Oropharynx without erythema; saliva noted to be dry. ? Lungs: Clear to auscultation bilaterally. no chest wall tenderness ? Cardiovascular: Regular rhythm; tachycardic rate per vitals. ? Abdomen: Tenderness not specifically elicited; patient reports stomach discomfort when eating/drinking. ? Skin: No active injection-site reaction; patient provided photo of prior erythema which has resolved. Vital Signs: Vital Signs: Last Vital Signs Temp 99.3 F 06/22/25 17:51 Pulse 99 06/22/25 17:51 Resp 18 06/22/25 17:51 BP 148/66 H 06/22/25 17:51 Pulse Ox 99 06/22/25 17:51 O2 Del Method Room Air 06/22/25 17:51 BMI result Body Mass Index 46.3 Course Course Course Narrative: This is a RME preformed in triage by Eva Panda PA-C. Date: 06/22/25, time 328 pm. Patient presents with shortness of breath and cough, seen yesterday at for paresthesias of skin and cough, ANtigen COVID/ FLU neg, CXR negative. ? 30-year-old female presents with shortness of breath (SOB) that began yesterday morning after awakening. ? Describes inability to ?catch her breath? and pleuritic chest pain (pain with inspiration). Pain is not associated with cough. ? Reports intermittent wheezing earlier yesterday; used her rescue inhaler around 2 AM with partial relief and no current wheeze. ? Seen yesterday at her workplace urgent care; given Benadryl and Tylenol for presumed allergic reaction. No epinephrine or steroids were administered. ? Additional symptoms since yesterday: new cough, numbness/vhfj-evr-pkduiti sensation to perioral/face region, decreased oral intake due to stomach discomfort, and possible dehydration. ? Denies fever. No current rash; did have injection-site erythema at Emgality administration site Tuesday night which self-resolved and has not recurred. ? Past asthma in childhood; no current daily controller medications noted. ? Medications: Emgality (loading dose Tuesday for migraines); arm contraceptive implant. ? Emgality started for migraines; patient took loading dose on Tuesday. ? Work-up today planned for chest imaging and basic labs to rule out pulmonary embolism or other acute pathology. Review of Systems: ? Constitutional: No fever reported. ? Respiratory: Shortness of breath, chest pain with inspiration, cough onset yesterday; denies current wheezing. ? Cardiovascular: Chest discomfort as described; no palpitations reported. ? Dermatologic: Resolved injection-site redness; no generalized rash. ? Neurologic: Numbness/kuiz-yln-gtilhor around face noted yesterday. ? GI: Stomach discomfort with attempts to eat/drink; decreased oral intake. ? : Denies dysuria. PE: slighty dry mucous membranes, clear PND, clear lungs, obese, no rashes, angioedema or urticaria Work UP:?given new onset SOB, tachy 102, D dimer, new onset abd pain : abd labs, repeat CXR and repeat SARS/FLU Will defer full ROS and PE to treating provider. Patient will continued to be monitored in the interim. Medical Decision Making Medical Decision Making MDM Narrative: 30-year-old female with acute onset SOB and pleuritic chest pain. Work-up today reveals Influenza A infection with otherwise normal labs, clear chest radiograph, and low D-dimer excluding PE. Injection-site reaction resolved. Mild dehydration noted. Problem #1: Acute Influenza A infection Assessment: Positive rapid influenza A; respiratory symptoms consistent with primary influenza syndrome. Plan: Will give Tamiflu. Return precautions: worsening shortness of breath, chest pain, new wheeze, syncope. Problem #2: Acute shortness of breath / pleuritic chest pain Assessment: Likely secondary to influenza; PE ruled out (D-dimer < 500, clear CXR). Plan: Continue monitoring respiratory status; follow up if symptoms worsen. Problem #3: Resolved Emgality injection-site reaction Assessment: Localized erythema Tuesday night; resolved spontaneously. Plan: No active treatment required. Problem #4: Possible mild dehydration Assessment: Dry saliva, decreased oral intake, mild tachycardia. Plan: Encourage liberal oral hydration as tolerated. 30-year-old female presenting with acute shortness of breath, pleuritic chest pain, and cough. Given her symptoms and risk factors, diagnostic workup included chest X-ray, laboratory studies, and D-dimer to evaluate for pulmonary embolism (PE), pneumonia, and other acute etiologies. Chest X-ray was clear, ruling out bacterial pneumonia; D-dimer was <500 ng/mL and chest imaging was normal, effectively excluding PE. Laboratory results showed no leukocytosis or organ dysfunction, and rapid Influenza A testing was positive, supporting a diagnosis of primary influenza syndrome. Mild dehydration was noted based on clinical findings of dry saliva and decreased oral intake. The resolved Emgality injection-site reaction required no further intervention. Tamiflu was prescribed for influenza, and oral hydration was recommended for mild dehydration. Other diagnoses, including PE, bacterial pneumonia, and allergic reaction, were excluded based on negative imaging, normal labs, and resolution of prior injection-site symptoms. Return precautions were provided for worsening respiratory symptoms, chest pain, new wheeze, or syncope to ensure prompt recognition of potential complications. Differential Diagnosis Differential Diagnoses: The differential diagnosis associated with the presentation includes Aom/ AOE, strep, COVID, FLU, pneumonia, PE, bronchitis Admission/Observation Consideration of admission/observation: Escalation of care including admission/observation considered Lab Data MDM Lab Attestation statement: I reviewed the patient's lab results. ? Rapid Influenza A: POSITIVE. ? CBC: No leukocytosis. ? BMP: No electrolyte abnormalities; renal and hepatic function normal. ? D-dimer: < 500 ng/mL (normal), pulmonary embolism unlikely. 06/22/25 15:46 06/22/25 15:46 Labs: Lab Results 06/22/25 Range/Units 15:46 WBC 7.3 (4.8-10.8) X10*3/uL RBC 4.44 (4.20-5.50) X10*6/uL Hgb 13.3 (12.0-16.0) g/dl Hct 40.6 (37.0-47.0) % MCV 91.4 (80.0-98.0) fL MCH 30.0 (27.0-33.0) pg MCHC 32.8 (31.0-35.0) g/dl RDW 13.6 (11.0-16.0) % Plt Count 311 (160-400) X10*3/uL MPV 10.5 (9.4-12.3) fL Immature Gran % (Auto) 0.1 (0.0-0.4) % Neut % (Auto) 68.2 (45-73) % Lymph % (Auto) 20.6 (20-40) % [place] % (Auto) 9.5 (2-11) % Eos % (Auto) 1.2 (0-4) % Baso % (Auto) 0.4 (0-2) % Lymph # (Auto) 1.5 (1.2-4.9) X10*3/uL [place] # (Auto) 0.7 (0.1-1.2) X10*3/uL Eos # (Auto) 0.1 (0.0-0.4) X10*3/uL Baso # (Auto) 0.0 (0.0-0.2) X10*3/uL Abs Immat Gran (auto) 0.01 (0.00-0.03) X10*3/uL Absolute Neuts (auto) 5.0 (2.0-8.3) x10*3/uL Absolute Nucleated RBC 0.000 (0.0-0.012) X10*3/uL Nucleated RBC % (auto) 0.0 (0.0-0.2) /100WBC D-Dimer High Sensitivty 339 NG/ML Sodium 140 (135-145) mmol/L Potassium 3.7 (3.3-5.1) mmol/L Chloride 107 (96-108) mmol/L Carbon Dioxide 25 (22-29) mmol/L Anion Gap 12 (12-20) BUN 7 L (9-16) mg/dL Creatinine 0.68 (0.5-1.4) mg/dL Estim Creat Clear Calc 150.6 Estimated GFR > 60 Random Glucose 84 (60-115) mg/dL Calcium 9.2 (8.4-10.2) mg/dL Magnesium 1.9 (1.6-2.6) mg/dL Total Bilirubin 0.2 (0.0-1.0) mg/dL AST 21 (5-31) U/L ALT 13 (0-31) U/L Alkaline Phosphatase 125 H (39-117) U/L Total Protein 7.3 (6.5-8.0) g/dL Albumin 4.0 (3.5-5.0) g/dL Lipase 21 (8-78) U/L Influenza Type A (PCR) POSITIVE A (Negative) Influenza Type B (PCR) NEGATIVE (Negative) RSV RNA Qual (PCR) NEGATIVE (Negative) SARS-CoV-2 RNA (RT-PCR) NEGATIVE (Negative) Independent Interpretation I performed an independent interpretation of an: Plain X-Ray Interpretation: no acute findings Radiology Impression Discussion of test interpretation with radiology: I have reviewed the radiologist's reading. External Record Review External record reviewed: Outpatient record Accessed [facility] record, negative CXR, negative FLU A/B and negative COVID yesterday. Tests considered The following testing was considered but not selected: CTA chest if d dimer was positive Prescription Management I considered prescription management with: Antiviral Social Determinants Patient?s care significantly limited by Social Determinants of Health including: Other Social Determinant of Health Discharge Plan Discharge Clinical Impression: Influenza A, Shortness of breath Patient Disposition: Home, Self-Care Instructions: Influenza (ED) Additional Instructions: Date: June 22, 2025 Treating Provider: Eva Panda PA-C What You Were Treated For You were diagnosed with Influenza A (the flu). This is what is causing your shortness of breath, chest discomfort with breathing, and cough. Your testing showed you do NOT have a blood clot in your lungs. Your chest x-ray was clear, and your blood work was normal. Treatment You Received You were given Tamiflu (oseltamivir) to treat the flu. This medicine works best when started within the first 2 days of symptoms.Take 75 mg twice daily for 5 days. Finish all the medicine even if you start feeling better. What to Do at Home - Drink plenty of fluids (water, juice, broth, tea) to stay hydrated - Rest as much as possible - You can take Tylenol or ibuprofen for fever, aches, and pain - Use your rescue inhaler if you feel wheezing When to Return to the Emergency Department Come back to the ER or call 911 if you develop any of these warning signs: - Worsening shortness of breath or difficulty breathing - Chest pain that gets worse or doesn't go away - Confusion or feeling disoriented - Dizziness or lightheadedness that doesn't improve - Fever that returns after going away or lasts more than 3-4 days - Unable to keep fluids down or signs of severe dehydration - Wheezing that doesn't improve with your inhaler - Fainting or feeling like you might pass out - Severe weakness or inability to walk Follow-Up Most people recover from the flu in about a week. If you're not feeling better in 5-7 days or have any of the warning signs above, seek medical care right away. Prescriptions: New oseltamivir [Tamiflu] 75 mg capsule 75 mg PO BID 5 Days Qty: 10 0RF oseltamivir [Tamiflu] 75 mg capsule 75 mg PO BID 5 Days Qty: 10 0RF No Action ondansetron HCl 4 mg tablet 4 mg PO Q4H MDD 4 tabs PRN (Reason: nausea and vomiting) 30 Days Qty: 30 3RF rosuvastatin 5 mg tablet 5 mg PO DAILY 30 Days Qty: 30 6RF riboflavin (vitamin B2) 400 mg tablet 400 mg PO DAILY 30 Days Qty: 90 3RF cholecalciferol (vitamin D3) 25 mcg (1,000 unit) capsule 50 mcg PO DAILY 30 Days Qty: 90 3RF magnesium oxide 400 mg (241.3 mg magnesium) tablet 400 mg PO BEDTIME 90 Days Qty: 90 3RF naratriptan 2.5 mg tablet See Rx Instructions PO .COMPLEX PRN (Reason: migraine headache) 30 Days Qty: 12 6RF Rx Instructions: take 1/2 - 1 tab at onset of headache; if no relief may repeat 1 tab after at least 4 hrs; max = 2 tabs/24 hrs orally PRN; Ubrelvy 100 mg tablet 50 - 100 mg PO ONCE PRN (Reason: migraine headache) 30 Days Qty: 16 3RF Rx Instructions: take at onset of migraine, may repeat in 2hrs (may take w/ Ibuprofen) topiramate 50 mg tablet 100 mg PO BID 90 Days Qty: 360 3RF gabapentin 300 mg capsule 300 mg PO BID 90 Days Qty: 180 1RF Emgality Pen 120 mg/mL pen injector 120 mg subcut QMONTH 30 Days Qty: 1 12RF Rx Instructions: Maintenance dose of 120 mg subcu q.month. albuterol sulfate 90 mcg/actuation HFA aerosol inhaler 2 puff inhalation Q4-6H PRN (Reason: shortness of breath or wheezing) Qty: 6.7 0RF benzonatate 200 mg capsule 200 mg PO BID PRN (Reason: cough) Qty: 14 0RF pantoprazole 40 mg tablet,delayed release (DR/EC) 40 mg PO DAILY famotidine 20 mg tablet 20 mg PO BID cetirizine 10 mg tablet 10 mg PO DAILY ipratropium bromide 21 mcg (0.03 %) spray,non-aerosol intranasal acetaminophen 650 mg tablet extended release 650 mg PO TID ibuprofen 800 mg tablet 800 mg PO TID multivitamin [Daily Multi-Vitamin] Tablet 1 tab PO DAILY sennosides-docusate sodium [Senexon-S] 8.6-50 mg tablet 1 tab-cap PO BEDTIME phentermine 37.5 mg capsule 37.5 mg PO DAILY Rx Instructions: must administer 30 minutes before or 1-2 hours after breakfast Referrals: Nichol Rich MD [Primary Care Provider, Family Practice] Clinical Impression: Influenza A Stand Alone Forms: Work/School Release Interventions: ED Discharge Assessment Last Done: 06/22/25 17:51 Discharge Date/Time: 06/22/25 17:52 Print Language: Wolof
--- NOTE | 2025-06-22 15:30 | ECG_ITS ---
Test Reason : SOB Blood Pressure : */* mmHG Vent. Rate : 101 BPM Atrial Rate : 101 BPM P-R Int : 138 ms QRS Dur : 72 ms QT Int : 324 ms P-R-T Axes : 32 22 -3 degrees QTcB Int : 420 ms Sinus tachycardia Otherwise normal ECG When compared with ECG of 23-Nov-2024 15:01, No significant change was found Referred By: Eva Panda Electronically Signed By: JUDAH SAUCEDO MD
[2025-06-22 15:54] LABS: MANUAL DIFF FLAG NO
[2025-06-22 16:05] LABS: Hematocrit 40.6 % (37.0-47.0); Hemoglobin 13.3 g/dl (12.0-16.0); Imm Gran Abs Auto 0.01 X10*3/uL (0.00-0.03); Imm Gran Pct Auto 0.1 % (0.0-0.4); Lymphocytes Absolute Auto 1.5 X10*3/uL (1.2-4.9); Mean Corpuscular HGB Conc 32.8 g/dl (31.0-35.0); Mean Corpuscular Hemoglobin 30.0 pg (27.0-33.0); Mean Corpuscular Volume 91.4 fL (80.0-98.0); NRBC Abs Auto 0.000 X10*3/uL (0.0-0.012); NRBC Pct Auto 0.0 /100WBC (0.0-0.2); Platelet Count 311 X10*3/uL (160-400); Red Blood Count 4.44 X10*6/uL (4.20-5.50); White Blood Count 7.3 X10*3/uL (4.8-10.8)
[2025-06-22 16:13] LABS: Alanine Aminotransferase 13 U/L (0-31); Albumin Level 4.0 g/dL (3.5-5.0); Alkaline Phosphatase 125 U/L (39-117); Anion Gap 12 (12-20); Aspartate Amino Transferase 21 U/L (5-31); Blood Urea Nitrogen 7 mg/dL (9-16); Calcium 9.2 mg/dL (8.4-10.2); Carbon Dioxide 25 mmol/L (22-29); Chloride 107 mmol/L (96-108); Creatinine Clr Calc Pharmacy 150.6; Estimated Glomerular Filt Rate > 60; Lipase 21 U/L (8-78); Magnesium 1.9 mg/dL (1.6-2.6); Potassium 3.7 mmol/L (3.3-5.1); Sodium 140 mmol/L (135-145); Total Protein 7.3 g/dL (6.5-8.0)
[2025-06-22 16:38] LABS: Resp Syncy Virus RNA Qual PCR NEGATIVE (Negative); SARS COV2 PCR INHOUSE NEGATIVE (Negative)
[2025-06-22 16:57] LABS: D Dimer High Sensitivity 339 NG/ML
[2025-06-22 17:43] VITALS: BP 148/66; PULSE 99; RESP 18; TEMP 37.4; O2SAT 99
[2025-06-22 17:51] VITALS: BP 148/66; PULSE 99; RESP 18; TEMP 37.4; O2SAT 99
--- OUTSIDE RECORDS SUMMARY | 2025-06-22 17:54 | XMS_ITS | Encounter Summary ---
Author Organization [facility] to [facility]24 Address [address] [place] [address] Care Team Providers Care Transformation Manager Name Role Phone Balbina Moses MD Primary Care Provider Un available Rubia Weber MD Primary Care Provider [phone] Alf Urena MD Primary Care Provider Unavail able Agustin Roth MD Primary Care Provider [phone] Nichol Rich MD Primary Care Provider Reason for Visit * Reason Onset Date Comments My Chart Appointment 05/23/2018 Encounter Details Date Type Department Care Team Description 05/23/2018 Telephone Adult [address] [address] Balbina Moses MD My Chart Appointment Social History Tobacco Use Types Packs/Day Years Used Date Smoking Tobacco: Former Cigarettes 0.3 5 Q uit: 02/12/2017 Smokeless Tobacco: Former Alcohol Use Standard Drinks/Week Comments No 0 (1 standard drink = 0.6 oz pur e alcohol) Alcohol Habits Answer Date Recorded How often do you have a drink containing alcohol ? Monthly or less 05/23/2020 How many drinks containing a lcohol do you have on a typical day when you are drinking? Not asked How often do you have six or more drinks on one occasion? Not asked Sex Assigned at Date Recorded Female 12/15/2019 7:59 PM E [employer] Job Start Date Occupation Industry Not on file Not on file Not on file documented as of this encounter Miscellaneous Notes * Telephone Encounter - Ivonne Cardona R.N. - 05/23/2018 2:30 PM EST [phone] (home) [phone] (work) I left a message for the patient to return my call. * Telephone Encounter - Cortney Ricardodonado - 05/23/2018 2:28 PM EST Patient has scheduled a visit through My Chart. Please call patient to triage for appropriateness. Date appointment is booked: 05/24/18 Appointment scheduled with nAna Garcia Reason for appointment: Problem Follow-Up Visit Visited the e.r. on May.14 because I was having sharp stabbing pains in my chest area, this pain was causing me to have a hard time breathing. I tried to give the muscle relaxant a chance to work but if a breathe in it still hurts. documented in this encounter Plan of Treatment Not on file documented as of this encounter Visit Diagnoses Not on filedocumented in this encounter Care Teams Transformation Manager Relationship Specialty Start Date End Date Balbina Moses MD PCP - General Internal Medicine 03/30/16 0 Rubia Weber MD [address] [place] [id number] PCP - General Internal Medicine 01/16/20 06/12/20 Alf Urena MD [address] [place] [id number] PCP - General Internal Medicine 06/13/20 07/28/20 Agustin Roth MD [address] [place] [id number] PCP - General Internal Medicine 07/29/20 04/06/22 Nichol Rich MD [address] [place] [address] PCP - General Internal Medicine 04/07/22 [facility] Specialist PSYCHOLOGY 01/19/24 documented as of this encounter
--- OUTSIDE RECORDS SUMMARY | 2025-06-22 17:54 | XMS_ITS | Encounter Summary ---
Author Organization [facility] to 05[facility]24 Address [address] [place] [address] Care Team Providers Care Grails Web Application Developer Name Role Phone Balbina Moses MD Primary Care Provider Un available Rubia Weber MD Primary Care Provider [phone] Alf Urena MD Primary Care Provider Unavail able Agustin Roth MD Primary Care Provider [phone] Nichol Rich MD Primary Care Provider Reason for Visit * Reason Onset Date Comments My Chart Appointment 05/22/2018 Encounter Details Date Type Department Care Team Description 05/22/2018 Telephone Adult [address] [address] Balbina Moses MD My Chart Appointment Social [...] Telephone Encounter - Ivonne Cardona R.N. - 05/22/2018 10:53 AM EST [phone] (home) [phone] (work) I left a message for the patient to return my call. * Telephone Encounter - Karynromel Pearson - 05/22/2018 10:50 AM EST Patient has scheduled a visit through My Chart. Please call patient to triage for appropriateness. Date appointment is booked: 05/24/18 Appointment scheduled with leticia phillips Reason for appointment: chest pain documented in this encounter Plan of Treatment Not on file documented as of this encounter Visit Diagnoses Not on filedocumented in this encounter Care Teams Grails Web Application Developer Relationship Specialty Start Date End Date Balbina Moses MD PCP - General Internal Medicine 03/30/16 0 Rubia Weber MD [address] [place] [id number] PCP - General Internal Medicine 01/16/20 06/12/20 Alf Urena MD [address] [place] [id number] PCP - General Internal Medicine 06/13/20 07/28/20 Agustin Roth MD [address] [place] [id number] PCP - General Internal Medicine 07/29/20 04/06/22 Nichol Rich MD [address] [place] [address] PCP - General Internal Medicine 04/07/22 [facility] Specialist PSYCHOLOGY 01/19/24 documented as of this encounter
--- OUTSIDE RECORDS SUMMARY | 2025-06-22 17:55 | XMS_ITS | Encounter Summary ---
Author Organization [employer] Address [address] [place] [address] [address] [place] [address] Care Team Providers Care Jewel Blocker And Sawyer Name Role Phone Unavailable Primary Care Provider Unavailabl e Reason for Visit * Reason Comments Med Refill Encounter Details Date Type Department Care Team (Late st Contact Info) Description 06/25/2024 Refill [facility] [address] [place], [place] [phone] Rudy Estes DDS [address], [place] [phone] Social History Tobacco Use Types Packs/Day Years [...]
--- OUTSIDE RECORDS SUMMARY | 2025-06-22 17:55 | XMS_ITS | Data Portability ---
Author Organization [place] - [facility], Allergy Address [address] [address] Care Team Providers Care Envelope Sealing Machine Operator Name Role Phone MOSHE SANTOS Referring Provider BROOKE JEAN BAPTISTE Primary Care Provider [phone] Assessment Encounter Date Assessment Date Assessment LastModified [...] discussed. We discussed the risk of senior care perforation following tube extrusion, with possible need [...] near future. [email or web address] Not available 04/22/2025 15:39:35 06/13/2025 06/13/2025 30-year-old female with a history of chronic otitis media with effusion and bilateral conductive hearing loss. This been refractory to medications, now status post in office tympanostomy tube placement today bilaterally (romelia). Scant effusion AU. She tolerated this well. - Return visit in 1 months for tube check with audiogram first - If continued CHL could consider otosclerosis on the differential, no fmhx of this per pt - RV q 4-6 months after that dlofgrenmd Not available 06/13/2025 11:50:43 Plan of Treatment Reminders Order Date Submit Date Provider Last Modified By Organization Details Last Modified Time Details Appointments Hearing Test Same Day (First) 2025 03:30P M Hearing Test Not available Not available Not available Establish ed 15 2025 04:00P M Yoan Rutherford, DO Not available Not [...] Recorded Time Dysfunction of bilateral eustachian tubes 7199521951274 100 Active 2024 Yoan Rutherford [address], [address], [facility] - [facility] 13:01:47 Recurrent acute otitis media 246931505 Active 2024 Yoan Rutherford [address], [address], [facility] - [facility] 13:01:51 Conductive hearing loss, bilateral 472404484 Active 2024 Yoan Rutherford [address], [address], [facility] - [facility] 09:11:08 Problem Notes None recorded. Procedures Surgical History Date Name Laterality Status Provider Name and Address Organization Details Recorded Time Myringotomy w/Placement of Tube bilat completed Yoan Rutherford DO [address] [facility],[address], [address], [facility] - [facility] 06/13/2025 11:49:51 Comp Audio with Tymps - 08867 & 44567 completed BOBBY DELANEY, AUD 100 [facility],[place] [address], [place], [address], [place] - [facility] 04/22/2025 14:35:00 Imaging Results None recorded. Procedure Notes None recorded. Medical Equipment None Reported. Allergies Allergen ID Allergen Name Allergen Category Reaction Reaction Severity Criticality Documentation Date Start Date Code Code System Note Provider Name and Address Organization Details Recorded Time 801959 morphine medicatio n Not available Not available Not available 04/22/2025 7052 RxNorm JUDY COMI kamala [facility] 15:01:30 [id number] amoxicill in medicatio n Not available Not available Not available 04/22/2025 723 RxNorm JUDY COMI null, [facility] 15:01:37 Medications Name Sig Start Date [...] TAKE 1 TABLET BY MOUTH 2 TIMES A DAY. TAKE 1 TABLET BY MOUTH 2 TIMES DAILY NEEDED FOR HEARTBURN . active Not Available Not Available No t Available magnesium oxide 400 mg (241.3 mg magnesium) tablet TAKE 1 TABLET BY MOUTH EVERYDAY AT BEDTIME active Not [...] No t Available topiramate 50 mg tablet TAKE 2 TABLETS BY MOUTH TWICE A DAY active Not [...] Updated DateTime 04/22/2025 160.02 cm 48.2 kg/m2 370700.12 g JUDY JJ [place] [facility] 04/22/2025 15:01:21 Date Recorded Body height Body mass index (BMI) Body weight Provider Name and Address Organization Details Last Updated DateTime 06/13/2025 160.02 cm 48.2 kg/m2 281942.12 g Richie Dudley [place] - [facility] 06/13/2025 11:10:00 Social History None recorded. Functional Status None recorded. Mental Status None recorded. Family History Nothing Reported. Medical History No medical history recorded. Gynecological HistoryNo gynecological history recorded. Obstetrics History GPAL:G 0 P 0 0 0 0 Past Encounters Encounter ID Performer Location Encounter Start Date Encounter Closed Date Diagnosis/Indication Diagnosis SNOMED-CT Code Diagnosis ICD10 Code Diagnosis IMO Codes Diagnosis Note [id number] Yoan Rutherford DO [facility] [address] [address] 04/22/2025 14:17:31 04/22/2025 16:44:08 Dysfunction of bilateral eustachian tubes 5566455539 689214 H69.93 [id number] Audiologic al evaluation results: 04/22/2025 Right ear: Mild low frequency conductive hearing loss with excellent word recognitio n. Left ear: Mild low frequency conductive hearing loss with excellent word recognitio n. Tympanomet ry: Right Ear:Type B Left Ear:Type B Recurrent acute otitis media 749700042 H66.90 [id number] Yoan Rutherford DO [facility] [address] [address] 06/13/2025 10:47:32 06/13/2025 11:40:26 Dysfunction of bilateral eustachian tubes 8438284783 485575 H69.93 [id number] Audiologic al evaluation results: 04/22/2025 Right ear: Mild low frequency conductive hearing loss with excellent word recognitio n. Left ear: Mild low frequency conductive hearing loss with excellent word recognitio n. Tympanomet ry: Right Ear:Type B Left Ear:Type B Recurrent acute otitis media 494767412 H66.90 499778 Conductive hearing loss, bilateral 634664118 H90.0 [id number] Health Concerns Section Related Observation LastModified by Organization Detai ls LastModified Time None Recorded Concern Status LastModified by Organization Details LastModified Time None Recorded Advance Directives Directive None Recorded Payers Insurance Date Sequence Insurance Name Policy Number Policy Leung Covered Member ID Leung Member ID Guarantor Name 06/20/2025 1 [facility] (MEDICAID REPLACEMENT - HMO) SWATI Larson [id number] Padma Larson Notes Date Note Type Note Provider Name and Address Organization Details Recorded Time 04/22/2025 text/html ROS as noted in the HPI The patient presents with family for otologic concerns. Muffled hearing for years many infections as a kid. Folks at work repeat themselves. Episodes per year: 2-3Episodes per last 6-months:Hearing loss: YesCourses of Abx/Steroids: NoneOther interventions: Steroid Arcadia, Zyrtec as well which havent helped.Passed Hearing Screen: YesPrior ear surgery: NoFMhx Hearing loss: No Yoan Rutherford, DO 100 [facility],[address], [address], [facility] - [facility] 04/22/2025 15:39:49 06/13/2025 text/html ROS as noted in the HPI Interval history: Previously found to have bilateral chronic otitis media with effusion and eustachian tube dysfunction. Here today for recheck and possible tubes. No improvement in sxs Previous visit: The patient presents with family for otologic concerns. Muffled hearing for years many infections as a kid. Folks at work repeat themselves. Episodes per year: 2-3Episodes per last 6-months:Hearing loss: YesCourses of Abx/Steroids: NoneOther interventions: Steroid Arcadia, Zyrtec as well which havent helped.Passed Hearing Screen: Yes Yoan Rutherford, DO 100 [facility],[address], [address], [facility] 06/13/2025 11:51:00 OBGyn Episode No OBEpisode recorded.
--- OUTSIDE RECORDS SUMMARY | 2025-06-22 17:55 | XMS_ITS | Encounter Summary ---
Author Organization [employer] Address [address] [place] [address] [address] [place] [address] Care Team Providers Care Felt Finisher Name Role Phone Unavailable Primary Care Provider Unavailabl e Reason for Visit * Reason Comments Med Refill Encounter Details Date Type Department Care Team (Late st Contact Info) Description 05/09/2025 Refill [facility]ULT D[facility] [address] [place], [place] [phone] Rudy Estes DDS [address] [place], [place] [phone] Social History Tobacco Use Types Packs/Day Years [...]
--- OUTSIDE RECORDS SUMMARY | 2025-06-22 17:55 | XMS_ITS | Clinical Summary ---
Author Organization [employer] Address [address] [facility] 7t [place] [address] Care Team Providers Care Hotel Engineer Name Role Phone Unavailable Primary Care Provider [...] Sod Fluoride-Potas sium Nitrate 1.1-5 % paste [place] teeth for 2 minutes, morning and night. [...] 10 DAYS DO NOT CRUSH/CHEW/SPLIT 30 tablet 5 Active Active Problems Problem Noted Date Diagnosed Date Dental caries 03/08/2024 Missing teeth, acquired 03/08/2024 Dental calculus 05/26/2023 Dental caries on smooth surface limited to ename l 05/26/2023 Acute pulpitis 05/26/2023 Encounters Date Type Department Care Team Description 05/09/2025 Refill [facility] ADULT DENTAL [address] [place] [address] Rudy Estes DDS from Last 3 Months [...] Additional history exists Tobacco Screening 04/26/2025 04/26/2024 Cervical Cancer Screening 2025 HPV/Cotest 2025 Dental X-Ray: Full Mouth 03/09/2027 03/08/2024, 05/11 [...] Relevant to Health Maintenance Insurance [address] [place] [address] [facility] MEDICAID [address] [place] [address]
--- OUTSIDE RECORDS SUMMARY | 2025-06-22 17:55 | XMS_ITS | Clinical Summary ---
Author Organization [facility] 230 [facility] lding Address [address] [place] [address] Phone Care Team Providers Care Crating And Moving Estimator Name Role Phone Nichol Rich MD Primary [...] (ADULTS MULTIVITAMIN ORAL) Take by mouth. Active ubrogepant (Ubrelvy) 100 mg tablet Take 1 tablet (100 mg total) by mouth 1 (one) time. Active triamcinolone (NASACORT) 55 mcg nasal inhalerIndicatio ns:Ear popping, bilateral Administer 2 sprays into each nostril 1 (one) time each day. 10.8 mL 1 07/24/19 25 Active rosuvastatin (CRESTOR) 5 mg tablet Take [...] for Heartburn. 180 each 3 04/29/20 25 2025 Active ipratropium (ATROVENT) 21 mcg (0.03 %) nasal sprayIndications :Nasal congestion INSTILL 2 SPRAYS IN EACH NOSTRIL EVERY 12 HOURS 30 mL 06/03/20 25 Active pantoprazole (PROTONIX) 40 mg EC tablet Take 1 tablet (40 mg total) by mouth 1 (one) time each day before breakfast. Do not crush, chew, or split. 90 each 3 06/21/20 25 2025 Active pantoprazole (PROTONIX) 40 mg EC tablet Take 1 Tablet by mouth daily. Take in am on empty stomach, wait 30 mins and then eat to activate the medication 05/04/20 24 2024 Discontinued(R eorder) ipratropium (ATROVENT) 21 mcg (0.03 %) nasal sprayIndications :Nasal congestion USE 2 SPRAYS BY NASAL ROUTE EVERY 12 HOURS 30 mL 3 10/16/19 25 2024 Discontinued coenzyme Q-10 30 mg capsule Take 1 capsule (30 mg total) by mouth 1 (one) time each day. 2024 Discontinued Active Problems Problem Noted Date Diagnosed Date Severe episode of recurrent major depressive disorder, without psychotic features 07/06/2022 Chest pain in adult 06/25/2021 Costochondritis 06/25/2021 Vitiligo 08/15/2020 Overview (05/04/2024): Biopsy 08/15/20- No sx, diagnosed on AG Last Assessment & Plan: Continue to use Mycolog prn. Asthma 01/16/2020 Migraine 01/16/2020 Encounters Date Type Department Care Team Description 06/12/2025 7:30 AM EST Office Visit Adult Medicine [address] [address] Jean Claude Mann PA Morbid obesity (CMS/HCC V24, CMS/[facility] V28) (Primary Dx); Constipation, unspecified constipation type 04/10/2025 8:00 AM EDT Office Visit Adult [address] [address] Jean Claude Mann, PA Morbid obesity (CMS/HCC V24, CMS/HCC V28) (Primary Dx); Constipation, unspecified constipation type from Last 3 Months Immunizations Immunization Administration Dates Next Due DTaP (Infanrix) 6wks to less than 7yo ,09/10/1996,02/21/1996,12/20,1995 [id number]-ZZS-JKP (Pentacel) 2mo to less than 5yo 02/20/2006,08/05/2005,09/10/1996,12/20 H1N1 Inj Preservative Free 08/20/2009 HPV, Quadrivalent 08/20/2009,04/15/2009,02/26/20 08 Hep A, Unspecified 04/15/2009,02/26/2008 Hep B, Unspecified 02/21/1996,1995, 995 Hepatitis A Vaccine, Pediatr ic Dosage, Unspecified Formulation 04/15/2009 Hepatitis B (Hdbtbqk-T-Zxjfx , Recombivax HB-Adult) 19yo and older 08/14/2020,02/20/2020,01/23/2020 [...] ular pertussis (Boostrix; Adacel) 7yo and older 04/19/2025,07/27/2017,03/29/2014,02/25,02/26/2008 Varicella live (Varivax) 12m o and older 02/26/2008,09/10/1996 Surgical History Surgery Date Site/Laterality Comments APPENDECTOMY 02/2016 PROCEDURE: HISTORICAL APPENDECTOMY Medical History Medical History Date Comments Asthma 01/16/2020 DX:Asthma Morbid obesity with BMI of 4 5.0-49.9, adult ([facility] V24, [facility] V28) 01/16/2020 DX:Morbid obesity wit h BMI of 45.0-49.9, adult ([facility]) Migraine 01/16/2020 DX:Migraine Severe episode of recurrent major depressive disorder, without psychotic features ([facility] V24, [facility] V28) 07/06/2022 DX:Severe episode of recurrent major depressive disorder, without psychotic features ([facility]) Costochondritis 06/25/2021 DX:Costochondrit is Chest pain in [...] for your loved ones. For example, child development assistant or elderly care for an older adult? [...] on file Sexual Orientation Not on file Last Filed Vital Signs Vital Sign Reading Time Taken Comments Blood Pressure 113/76 06/12/2025 7:42 AM EST Pulse 103 06/12/2025 7:42 AM EST Temperature 36.3 C (97.3 F) 06/12/2025 7:42 AM EST Respiratory Rate 18 02/18/2025 10:53 AM EDT Oxygen Saturation 96% 02/18/2025 10:53 AM EDT Inhaled Oxygen Concentration - - Weight 118 kg (261 lb) 06/12/2025 7:42 AM EST Height 160 cm (5' 3 ) 06/12/2025 7:42 AM EST Body Mass Index 46.23 06/12/2025 7:42 AM EST Plan of Treatment Upcoming Encounters Date Type Department Care Team (Late st Contact Info) Description 09/17/2025 9:00 AM EDT Office Visit Adult Medicine - [address] [address] Jean Claude Mann, PA [address] [place] [address] Health Maintenance Due Date Last Done Comments Pneumococcal Vaccine: Pediatrics (0 to 5 Years) and At-Risk Patients (6 to 49 Years) (1 of 2 - PCV) 2014 COVID-19 Vaccine ( season) 2025 04/23/2021, 10/22/2020, 10/01/2020 Social Influencers of Health Screening 07/16/2025 07/16/2024 Cervical Cancer Screening: Pap Smear 07/20/2026 07/20/2023, 07/20/2023, 05/23/2020 Cholesterol Screening (Lipid Panel) 07/23/2029 07/23/2024, 07/20/2023 DTaP,Tdap,and Td Vaccines (15 - Td or Tdap) 04/19/2035 04/19/2025, 07/27/2017, 03/21/2017, Additional history exists RSV Immunization Adult Patients (1 - 1-dose 75+ series) 2070 HIB Vaccines Completed 02/20/2006, 02/08, 08/05/2005, Additional history exists IPV Vaccines Completed 02/20/2006, 12/09, 08/05/2005, Additional history exists Varicella Vaccines Completed 02/26/2008, 09/10/1996 Hepatitis A Vaccines Completed 04/15/2009, 04/15/2009, 02/26/2008 HPV Vaccines Completed 08/20/2009, 12/2008, 02/26/2008 Meningococcal ACWY Vaccine Aged Out 07/24, 02/26/2008, 02/26/2008 No longer eligible based on patient's age to complete this topic HIV Screening Completed 05/23/2020 Hepatitis C Screening Completed 05/23/2020 Hepatitis B Vaccines Completed 08/14/2020, 02/20/2020, 01/23/2020, Additional history exists MMR Vaccines Completed 04/03/2021, 02/09, 07/22/1999, Additional history exists Influenza Vaccine Discontinued 04/22/2023, , 04/15/2021, Additional history exists Depression Screening Completed 07/16/2024, [...] LAB CHEMISTRY METHOD 07/23/2024 6:[address] [facility] Triglycerides 164(H) 0 - 150 mg/dL LAB CHEMISTRY METHOD 07/23/2024 6:33 PM [facility] HDL 34(L) >=40 mg/dL LAB CHEMISTRY METHOD 07/23/2024 6:[address] [facility] LDL Calculated 86 0 - 100 mg/dL LAB CHEMISTRY METHOD 07/23/2024 6:[address] [facility] VLDL Cholesterol Karri 32.8 mg/dL LAB CHEMISTRY METHOD 07/23/2024 6:33 PM [facility] Non HDL Chol. (LDL+VLDL) 119 <145 mg/dL LAB CHEMISTRY METHOD 07/23/2024 6:33 PM [facility] Chol/HDL Ratio 4.5(H) 0.0 - 4.4 LAB CHEMISTRY METHOD 07/23/2024 6:33 PM [facility] Blood Venous blood specimen / Unknown Venipuncture / Unknown 07/23/2024 2:50 PM EST 07/23/2024 2:50 PM EST Jean Claude LORENZO LAB BLOOD ORDERABLES Final Re sult [facility] [address] [place] [address], * Depression Screening (01/19/2024) Depression Screening abstracted Historical Provider HEALTH MAINTENANCE Final Result * Pap Smear (07/20/2023) Pap smear 3 yr fu Historical Provider HEALTH MAINTENANCE Final Result * HIV Screening (05/23/2020) Pathologist [facility] HIV Screening abstracted Historical Provider HEALTH MAINTENANCE Final Result * Hepatitis C Screening (05/23/2020) Hepatitis C Screening abstracted Historical Provider HEALTH MAINTENANCE Final Result from Last 3 Months or Most Recently Relevant to Health Maintenance Insurance [facility] Care Teams Crating And Moving Estimator Relationship Specialty Start Date End Date Nichol Rich MD [address] [place] [id number] PCP - General Internal Medicine 04/07/22
--- OUTSIDE RECORDS SUMMARY | 2025-06-22 17:55 | XMS_ITS | Encounter Summary ---
Author Organization [facility] Prior to 05/11/2024 Address [address] [place] [address] Care Team Providers Care Automotive Parts Specialist Name Role Phone Nichol Rich MD Primary Care Provider + [phone] Reason for Visit * Reason Comments E-prescribe Rx Request Encounter Details Date Type Department Care Team Description 09/27/2022 Refill Adult Medicine - [place] [address] [place], [place] [phone] Jean Claude Mann PA [address] [place] [address] E-prescribe Rx Request Social History Tobacco Use Types Packs/Day Years Used Date Smoking Tobacco: Former Cigarettes Q uit: 09/12/2020 Smokeless Tobacco: Never Comments:started age 15; max 1/4 PPD Alcohol Use Standard Drinks/Week Comments Yes 0 (1 standard drink = 0.6 oz pur e alcohol) Social Alcohol Habits Answer Date Recorded How often do you have a drink containing alcohol ? Monthly or less 05/23/2020 How many drinks containing a lcohol do you have on a typical day when you are drinking? Not asked How often do you have six or more drinks on one occasion? Not asked Education Answer Date Recorded What is the highest level of school you have completed or the highest degree you have received? Some college, no degree 01/16/2020 Sex Assigned at Date Recorded Female 12/15/2019 7:59 PM E DT Job Start Date Occupation Industry Not on file Not on file Not on file COVID-19 Exposure Response Date Recorded In the last 10 days, have yo u been in contact with someone who was confirmed or suspected to have Coronavirus/COVID-19? No / Unsure 09/03/2022 3:34 PM EST documented as of this encounter Plan of Treatment Not on file documented as of this encounter Visit Diagnoses Not on filedocumented in this encounter Care Teams Automotive Parts Specialist Relationship Specialty Start Date End Date Nichol Rich MD [address] [place] [id number] PCP - General Internal Medicine 04/07/22 [facility] Specialist PSYCHOLOGY 01/19/24 documented as of this encounter
--- OUTSIDE RECORDS SUMMARY | 2025-06-22 17:55 | XMS_ITS | Encounter Summary ---
Author Organization [employer] [facility] Prior to 05/11/2024 Address [address] [place] [address] Care Team Providers Care Painting Department Supervisor Name Role Phone Balbina Moses MD Primary Care Provider Un available Rubia Weber MD Primary Care Provider [phone] Alf Urena MD Primary Care Provider Unavail able Agustin Roth MD Primary Care Provider + [phone] Nichol Rich MD Primary Care Provider [phone] Encounter Details Date Type Department Care Team Description 03/09/2017 Zika Virus Medical Records [address] [place] [address] Abstract, Provider Social History Tobacco Use Types Packs/Day Years Used Date Smoking Tobacco: Former Cigarettes 0.3 5 Q uit: 02/12/2017 Smokeless Tobacco: Never Alcohol Use Standard Drinks/Week Comments No 0 [...] on file documented as of this encounter Plan of Treatment Not on file documented as of this encounter Visit Diagnoses Not on filedocumented in this encounter Care Teams Painting Department Supervisor Relationship Specialty Start Date End Date Balbina Moses MD PCP - General Internal Medicine 03/30/16 0 Rubia Weber MD [address] [place] [address] PCP - General Internal Medicine 01/16/20 06/12/20 Alf Urena MD [address] [place] [address] PCP - General Internal Medicine 06/13/20 07/28/20 Agustin Roth MD [address] [place] [address] PCP - General Internal Medicine 07/29/20 04/06/22 Nichol Rich MD [address] [place] [address] PCP - General Internal Medicine 04/07/22 [facility] Specialist PSYCHOLOGY 01/19/24 documented as of this encounter
--- OUTSIDE RECORDS SUMMARY | 2025-06-22 17:55 | XMS_ITS | Encounter Summary ---
Author Organization [facility] Address [address] [place] [address] Care Team Providers Care Slat Pickler Name Role Phone Nichol Rich MD Primary Care Provider + [phone] Encounter Details Date Type Department Care Team Description 11/24/2022 Refill Adult Medicine - [place] [address] [place] [address] Jana Hinkle PA-C [address] [place] [address] Social History Tobacco Use Types Packs/Day Years [...] on filedocumented in this encounter Care Teams Slat Pickler Relationship Specialty Start Date End Date Nichol Rich MD [address] [place] [id number] PCP - General Internal Medicine 04/07/22 [facility] Specialist PSYCHOLOGY 01/19/24 documented as of this encounter
--- OUTSIDE RECORDS SUMMARY | 2025-06-22 17:55 | XMS_ITS | Encounter Summary ---
Author Organization [employer] [facility] Prior to 05/11/2024 Address [address] [place] [address] Care Team Providers Care Windows Application Administrator Name Role Phone Balbina Moses MD Primary Care Provider Un available Rubia Weber MD Primary Care Provider [phone] Alf Urena MD Primary Care Provider Unavail able Agustin Roth MD Primary Care Provider [phone] Nichol Rich MD Primary Care Provider Encounter Details Date Type Department Care Team Description 04/12/2017 Refill OBGYN - [address] [address] Deo Jones CNM Social History Tobacco Use Types Packs/Day Years [...] encounter Miscellaneous Notes * Telephone Encounter - Alexandra Choi M.A. - 04/12/2017 8:45 AM EDTFrom: Padma Larson To: Deo Jones CNM Sent: 04/12/2017 8:09 AM EDT Subject: Medication Renewal Request Original authorizing provider: Deo Jones CNM Padma Larson would like a refill of the following medications: ondansetron (ZOFRAN-ODT) 4 MG disintegrating tablet [Deo Jones CNM] Preferred pharmacy: [facility]/PHARMACY [address] [place] [address] Comment: Medication renewals requested in this message routed to other providers: Kbsubaoy-Nbg-Lp-FA ( VITAMINS) 0.8 MG Tab [Balbina Moses MD] documented in this encounter Plan of Treatment Not on file documented as of this encounter Visit Diagnoses Diagnosis Nausea and vomiting in prior to 22 weeks gestation Mild hyperemesis gravidarum, unspecified as to episode of care documented in this encounter Care Teams Windows Application Administrator Relationship Specialty Start Date End Date Balbina Moses MD PCP - General Internal Medicine 03/30/16 0 Rubia Weber MD [address] [place] [address] PCP - General Internal Medicine 01/16/20 06/12/20 Alf Urena MD [address] [place] [address] PCP - General Internal Medicine 06/13/20 07/28/20 Agustin Roth MD [address] [place] [address] PCP - General Internal Medicine 07/29/20 04/06/22 Nichol Rich MD [address] [place] [address] PCP - General Internal Medicine 04/07/22 [facility] 01/19/24 documented as of this encounter
--- OUTSIDE RECORDS SUMMARY | 2025-06-22 17:55 | XMS_ITS | Encounter Summary ---
Author Organization [employer] [facility] Prior to 05/11/2024 Address [address] [place] [address] Care Team Providers Care Marketing/Sales Person Name Role Phone Balbina Moses MD Primary Care Provider Un available Rubia Weber MD Primary Care Provider [phone] Alf Urena MD Primary Care Provider Unavail able Agustin Roth MD Primary Care Provider [phone] Nichol Rich MD Primary Care Provider [phone] Encounter Details Date Type Department Care Team Description 06/14/2018 Refill OBGYN - [address] [address] Deo Jones CNM Social History Tobacco Use [...] Telephone Encounter - Alexandra Choi M.A. - 06/15/2018 9:03 AM ESTFrom: Padma Larson To: Deo Jones CNM Sent: 06/14/2018 5:10 PM EST Subject: Medication Renewal Request Original authorizing provider: Deo Jones CNM Padma Larson would like a refill of the following medications: clotrimazole-betamethasone (LOTRISONE) cream [Deo Jones CNM] Preferred pharmacy: [facility]/PHARMACY [id number] [place] [address] Comment: documented in this encounter Plan of Treatment Not on file documented as of this encounter Visit Diagnoses Diagnosis Vaginitis and vulvovaginitis Vaginitis and vulvovaginitis, unspecified documented in this encounter Care Teams Marketing/Sales Person Relationship Specialty Start Date End Date Balbina Moses MD PCP - General Internal Medicine 03/30/16 0 Rubia Weber MD [address] [place] [address] PCP - General Internal Medicine 01/16/20 06/12/20 Alf Urena MD [address] [place] [address] PCP - General Internal Medicine 06/13/20 07/28/20 Agustin Roth MD [address] [place] [address] PCP - General Internal Medicine 07/29/20 04/06/22 Nichol Rich MD [address] [place] [address] PCP - General Internal Medicine 04/07/22 [facility] 01/19/24 documented as of this encounter
--- OUTSIDE RECORDS SUMMARY | 2025-06-22 17:55 | XMS_ITS | Continuity of Care Document ---
Author Organization [facility], [facility] Address [address] [place] [address] Care Team Providers Care Adult And Pediatric Neurologist Name Role Phone MOSHE SANTOS Referring Provider BROOKE JEAN BAPTISTE Primary Care Provider Assessment Encounter Date Assessment Date Assessment [...] were discussed. We discussed the risk of retirement perforation following tube extrusion, with possible need [...] Recorded Time Dysfunction of bilateral eustachian tubes 6688308800756 100 Active 2024 Yoan Rutherford, DO 100 [facility], [facility], [place], [address], [facility] - [facility] 13:01:47 Recurrent acute otitis media 635260163 Active 2024 Yoan Rutherford, DO 100 [facility], [facility], [place], [address], [facility] 13:01:51 Conductive hearing loss, bilateral 477863602 Active 2024 Yoan Rutherford, DO 100 [facility] [place], [address] [facility], [place], [address], [facility] 09:11:08 Problem Notes None recorded. Procedures Surgical History Date Name Laterality Status Provider Name and Address Organization Details Recorded Time Myringotomy w/Placement of Tube bilat completed Yoan Rutherford, DO 100 [facility],[place] [address], [place], [address], [facility] 06/13/2025 11:49:51 Comp Audio with Tymps - 56384 & 99640 completed BOBBY DELANEY, AUD 100 [facility],[place] [address], [place], [address], [facility] 04/22/2025 14:35:00 Imaging Results None recorded. Procedure Notes None recorded. Medical Equipment None Reported. Allergies Allergen ID Allergen Name Allergen Category Reaction Reaction Severity Criticality Documentation Date Start Date Code Code System Note Provider Name and Address Organization Details Recorded Time 286484 morphine medicatio n Not available Not available Not available 04/22/2025 7052 RxNorm JUDY wray [place] - [facility] 15:01:30 408158 amoxicill in medicatio n Not available Not available Not available 04/22/2025 723 RxNorm JUDY wray, [place] - [facility] 15:01:37 Medications Name Sig Start Date [...] Updated DateTime 04/22/2025 160.02 cm 48.2 kg/m2 160965.12 g JUDY [facility] 04/22/2025 15:01:21 Social History None recorded. Functional Status None recorded. Mental Status None recorded. Family History Nothing Reported. Medical History No medical history recorded. Gynecological HistoryNo gynecological history recorded. Obstetrics History GPAL:G 0 P 0 0 0 0 Past Encounters Encounter ID Performer Location Encounter Start Date Encounter Closed Date Diagnosis/Indication Diagnosis SNOMED-CT Code Diagnosis ICD10 Code Diagnosis IMO Codes Diagnosis Note [id number] Yoan Rutherford, DO [facility] [address] [address] 04/22/2025 14:17:31 04/22/2025 16:44:08 Dysfunction of bilateral eustachian tubes 7906392255 224772 H69.93 [id number] Audiologic al evaluation results: 04/22/2025 Right ear: Mild low frequency conductive hearing loss with excellent word recognitio n. Left ear: Mild low frequency conductive hearing loss with excellent word recognitio n. Tympanomet ry: Right Ear:Type B Left Ear:Type B Recurrent acute otitis media 167637670 H66.90 320938 Health Concerns Section Related Observation LastModified by Organization Detai ls LastModified Time None Recorded Concern Status LastModified by Organization Details LastModified Time None Recorded Payers Encounter Date Sequence Insurance Name Policy Number Policy Leung Covered Member ID Leung Member ID Guarantor Name 04/22/2025 1 [facility] [employer] Padam Marsha [id number] Padma Marsha Notes Date Note Type Note Provider Name and Address Organization Details Recorded Time 04/22/2025 text/html ROS as noted in the HPI The patient presents with family for otologic concerns. Muffled hearing for years many infections as a kid. Folks at work repeat themselves. Episodes per year: 2-3Episodes per last 6-months:Hearing loss: YesCourses of Abx/Steroids: NoneOther interventions: Steroid [place], Zyrtec as well which havent helped.Passed [place] Hearing Screen: YesPrior ear surgery: NoFMhx Hearing loss: No Yoan Rutherford, DO 100 [facility],[address], [address], [facility] - [facility] 04/22/2025 15:39:49 OBGyn Episode No OBEpisode recorded.
--- OUTSIDE RECORDS SUMMARY | 2025-06-22 17:55 | XMS_ITS | Encounter Summary ---
Author Organization [employer] [facility] Prior to 05/11/2024 Address [address] [place] [address] Care Team Providers Care Auto Body Repairman Name Role Phone Agustin Roth MD Primary Care Provider + [phone] Nichol Rich MD Primary Care Provider [phone] Encounter Details Date Type Department Care Team Description 08/13/2020 Pt. Non Urgent Medical Question Adult Medicine [address] [address] Agustin Roth MD [address] [place] [address] Social History Tobacco Use Types Packs/Day Years Used Date Smoking Tobacco: Every Day Cigarettes Last attempted to quit: 02/12/2017 Smokeless Tobacco: Never Comments:started age 15; max 1/4 PPD Alcohol Use Standard Drinks/Week Comments Yes 0 (1 standard drink = 0.6 oz pur e alcohol) 0-1x per month Alcohol Habits Answer Date Recorded How often [...] Exposure Response Date Recorded In the last month, have you been in contact with someone who was confirmed or suspected to have Coronavirus / COVID-19? No / Unsure 08/14/2020 2:26 PM EST documented as of this encounter Progress Notes * Gaviota Eaton M.A. - 08/13/2020 3:36 PM EST Response sent * Gaviota Eaton M.A. - 08/13/2020 3:35 PM ESTFrom: Padma Larson To: Agustin Roth MD Sent: 08/13/2020 2:32 PM EST Subject: Hepatitis B I would like to apologize because I completely forgot about my appointment to get my last dose of the hepatitis B vaccine. 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 Thank you for your time. Padma Larson, SMA documented in this encounter Plan of Treatment Not on file documented as of this encounter Visit Diagnoses Not on filedocumented in this encounter Care Teams Auto Body Repairman Relationship Specialty Start Date End Date Agustin Roth MD [address] [place] [address] PCP - General Internal Medicine 07/29/20 04/06/22 Nichol Rich MD [address] [place] [address] PCP - General Internal Medicine 04/07/22 [facility] PSYCHOLOGY 01/19/24 documented as of this encounter
--- OUTSIDE RECORDS SUMMARY | 2025-06-22 17:55 | XMS_ITS | Continuity of Care Document ---
Author Organization [facility], [facility] Address [address] [place] [address] Care Team Providers Care Facilities Administrator Name Role Phone MOSHE SANTOS Referring Provider [phone] BROOKE JEAN BAPTISTE Primary Care Provider Assessment Encounter Date Assessment Date Assessment LastModified by Organization Details LastModified Time 06/13/2025 06/13/2025 30-year-old female with a history of chronic otitis media with effusion and bilateral conductive hearing loss. This been refractory to medications, now status post in office tympanostomy tube placement today bilaterally (armstrongs). Scant effusion AU. She tolerated this well. [...] instructions recorded. Reason for Referral None Reported. Problems Name Problem SNOMED Code Status Onset Date Resolution Date Notes Provider Name and Address Organization Details Recorded Time Dysfunction of bilateral eustachian tubes 4690477218244 100 Active 2024 Yoan Rutherford DO [address] [place], [address], [facility] - [facility] 13:01:47 Recurrent acute otitis media 700522111 Active 2024 Yoan Rutherford, DO 100 [facility] [place], [address], [place], [address], [facility] - [facility] [place] 13:01:51 Conductive hearing loss, bilateral 750558582 Active 2024 Yoan Rutherford, DO 100 [facility] [place], [address], [place], [address], [facility] - [facility] 09:11:08 Problem Notes None recorded. Procedures Surgical History Date Name Laterality Status Provider Name and Address Organization Details Recorded Time Myringotomy w/Placement of Tube bilat completed Yoan Rutherford, 100 [facility],[place] [address], [place], [address], [facility] 06/13/2025 11:49:51 Comp Audio with Tymps - 74354 & 88471 completed BOBBY DELANEY, AUD 100 [facility],[place] [address], [place], [address], [facility] 04/22/2025 14:35:00 Imaging Results None recorded. Procedure Notes None recorded. Medical Equipment None Reported. Allergies Allergen ID Allergen Name Allergen Category Reaction Reaction Severity Criticality Documentation Date Start Date Code Code System Note Provider Name and Address Organization Details Recorded Time 219875 morphine medicatio n Not available Not available Not available 04/22/2025 7052 RxNorm JUDY COMI null, [place] - [facility] 15:01:30 195136 amoxicill in medicatio n Not available Not available Not available 04/22/2025 723 RxNorm JUDY COMI null, [facility] 15:01:37 Medications Name Sig Start Date [...] Updated DateTime 06/13/2025 160.02 cm 48.2 kg/m2 143453.12 g Richie Dudley [place] - [facility] 06/13/2025 11:10:00 Social History None recorded. Functional Status None recorded. Mental Status None recorded. Family History Nothing Reported. Medical History No medical history recorded. Gynecological HistoryNo gynecological history recorded. Obstetrics History GPAL:G 0 P 0 0 0 0 Past Encounters Encounter ID Performer Location Encounter Start Date Encounter Closed Date Diagnosis/Indication Diagnosis SNOMED-CT Code Diagnosis ICD10 Code Diagnosis IMO Codes Diagnosis Note [id number] Yoan Rutherford, DO [facility] of [address] [address] 06/13/2025 10:47:32 06/13/2025 11:40:26 Dysfunction of bilateral eustachian tubes [id number] 280739 H69.93 [id number] Audiologic al evaluation results: 04/22/2025 Right ear: Mild low frequency conductive hearing loss with excellent word recognitio n. Left ear: Mild low frequency conductive hearing loss with excellent word recognitio n. Tympanomet ry: Right Ear:Type B Left Ear:Type B Recurrent acute otitis media 767407372 H66.90 490034 Conductive hearing loss, bilateral 405154868 H90.0 747644 Health Concerns Section Related Observation LastModified by Organization Detai ls LastModified Time None Recorded Concern Status LastModified by Organization Details LastModified Time None Recorded Payers Encounter Date Sequence Insurance Name Policy Number Policy Leung Covered Member ID Leung Member ID Guarantor Name 06/13/2025 1 [facility] PL[facility] - [facility] (MEDICAID REPLACEMENT - HMO) SWATI Larson [id number] Padma Larson Notes Date Note Type Note Provider Name and Address Organization Details Recorded Time 06/13/2025 text/html ROS as noted in the [...] loss: YesCourses of Abx/Steroids: NoneOther interventions: Steroid [place], Zyrtec as well which havent helped.Passed [place] Hearing Screen: Yes Yoan Rutherford, DO 100 [facility],[place] [address], [place], [address], [facility] - [facility] 06/13/2025 11:51:00 OBGyn Episode No OBEpisode recorded.
--- OUTSIDE RECORDS SUMMARY | 2025-06-22 17:55 | XMS_ITS | Encounter Summary ---
Author Organization [employer] [facility] Prior to 05/11/2024 Address [address] [place] [address] Care Team Providers Care Acting Instructor Name Role Phone Agustin Roth MD Primary Care Provider + [phone] Nichol Rich MD Primary Care Provider [phone] Encounter Details Date Type Department Care Team Description 09/04/2020 Pt. Non Urgent Medical Question Adult Medicine [address] [address] Agustin Roth MD [address] [place] [address] Need for hepatitis B screening test (Primary Dx) Social History Tobacco Use Types Packs/Day Years [...] PM EST documented as of this encounter Miscellaneous Notes * Telephone Encounter - Tova Valverde - 09/04/2020 1:46 PM ESTFrom: Padma Marsha To: Agustin Roth MD Sent: 09/04/2020 11:46 AM EST Subject: Hepat titer I just had the last series of doses for the hepatitis vaccine. I need to schedule an apt to get theantibody titer. I received the last shot on August 14. The days that work best for me are Tuesday mornings and afternoons. Thank you. documented in this encounter Plan of Treatment Not on file documented as of this encounter Results * (ABNORMAL) HEPATITIS B SURFACE AB TEST (09/10/2020 12:38 PM EST) Hepatitis B surface antibody POSITIVE(A ) NEGATIVE 09/10/2020 4:48 PM EST [facility] 09/10/2020 12:3 8 PM EST 09/10/2020 12:38 PM EST Agustin Roth MD LAB [facility] documented in this encounter Visit Diagnoses Diagnosis Need for hepatitis B screening test- Primary documented in this encounter Care Teams Acting Instructor Relationship Specialty Start Date End Date Agustin Roth MD [address] [place] [address] PCP - General Internal Medicine 07/29/20 04/06/22 Nichol Rich MD [address] [place] [address] PCP - General Internal Medicine 04/07/22 [facility] Specialist PSYCHOLOGY 01/19/24 documented as of this encounter
--- OUTSIDE RECORDS SUMMARY | 2025-06-22 17:55 | XMS_ITS | Encounter Summary ---
Author Organization [employer] [employer] [facility] Prior to 05/11/2024 Address [address] [place] [address] Care Team Providers Care Adobe Flex Developer Name Role Phone Nichol Rich MD Primary Care Provider [phone] Reason for Visit * Reason Comments E-prescribe Rx Request Encounter Details Date Type Department Care Team Description 09/27/2022 Refill Adult Medicine - [place] [address] [place] [address] Jana Hinkle PA-C [address] [place] [address] E-prescribe Rx Request Social History Tobacco Use [...] on filedocumented in this encounter Care Teams Adobe Flex Developer Relationship Specialty Start Date End Date Nichol Rich MD [facility] [place] [address] PCP - General Internal Medicine 04/07/22 [facility] Specialist PSYCHOLOGY 01/19/24 documented as of this encounter
--- OUTSIDE RECORDS SUMMARY | 2025-06-22 17:55 | XMS_ITS | Encounter Summary ---
[facility] Address [address] [place] [address] Care Team Providers Care Director And Professor Name Role Phone Rubia Weber MD Primary Care Provider [phone] Alf Urena MD Primary Care Provider Unavail able Agustin Roth MD Primary Care Provider + [phone] Nichol Rich MD Primary Care Provider + [phone] Encounter Details Date Type Department Care Team Description 01/23/2020 Release of Information Medical Records [address] [place] [address] Abstract, Provider Social History Tobacco Use Types [...] on filedocumented in this encounter Care Teams Director And Professor Relationship Specialty Start Date End Date Rubia Weber MD [address] [place] [address] PCP - General Internal Medicine 01/16/20 06/12/20 Alf Urena MD [address] [place] [address] PCP - General Internal Medicine 06/13/20 07/28/20 Agustin Roth MD [address] [place] [address] PCP - General Internal Medicine 07/29/20 04/06/22 Nichol Rich MD [address] [place] [address] PCP - General Internal Medicine 04/07/22 [facility] PSYCHOLOGY 01/19/24 documented as of this encounter
--- OUTSIDE RECORDS SUMMARY | 2025-06-22 17:55 | XMS_ITS | Encounter Summary ---
Author Organization [employer] Address [address] [place] [address] [address] [place] [address] Care Team Providers Care Clipper And Turner Name Role Phone Unavailable Primary Care Provider Unavailabl e Reason for Visit * Reason Comments Med Refill Encounter Details Date Type Department Care Team (Late st Contact Info) Description 03/06/2025 Refill [facility] [address] [place], [place] [phone] Rudy Estes DDS [address] [place], [place] [id number] Social History Tobacco Use Types Packs/Day Years [...]
--- OUTSIDE RECORDS SUMMARY | 2025-06-22 17:55 | XMS_ITS | Encounter Summary ---
Author Organization [employer] [place] [facility] Prior to 05/11/2024 Address [address] [place] [address] Care Team Providers Care Oil Deliverer Name Role Phone Balbina Moses MD Primary Care Provider Un available Rubia Weber MD Primary Care Provider [phone] Alf Urena MD Primary Care Provider Unavail able Agustin Roth MD Primary Care Provider + [phone] Nichol Rich MD Primary Care Provider Encounter Details Date Type Department Care Team Description 11/24/2017 Release of Information Medical Records [address] [place] [address] Abstract, Provider Social History Tobacco Use Types [...] on filedocumented in this encounter Care Teams Oil Deliverer Relationship Specialty Start Date End Date Balbina Moses MD PCP - General Internal Medicine 03/30/16 0 Rubia Weber MD [address] [place] [address] PCP - General Internal Medicine 01/16/20 06/12/20 Alf Urena MD [address] [place] [address] PCP - General Internal Medicine 06/13/20 07/28/20 Agustin Roth MD [address] [place] [address] PCP - General Internal Medicine 07/29/20 04/06/22 Nichol Rich MD [address] [place] [address] PCP - General Internal Medicine 04/07/22 [facility] PSYCHOLOGY 01/19/24 documented as of this encounter
--- OUTSIDE RECORDS SUMMARY | 2025-06-22 17:55 | XMS_ITS | Encounter Summary ---
Author Organization [facility] Prior to 05/11/2024 Address [address] [place] [address] Care Team Providers Care Director Of Corporate Strategy Name Role Phone Nichol Rich MD Primary Care Provider + [phone] Encounter Details Date Type Department Care Team Description 11/24/2022 Refill Adult Medicine - [place] [address] [place] [address] Gabriel Mullins PA-C [address] [place] [address] Social History Tobacco Use Types Packs/Day Years [...] filedocumented in this encounter Care Teams Director Of Corporate Strategy Relationship Specialty Start Date End Date Nichol Rich MD [address] [place] [address] PCP - General Internal Medicine 04/07/22 [facility] Specialist PSYCHOLOGY 01/19/24 documented as of this encounter
--- OUTSIDE RECORDS SUMMARY | 2025-06-22 17:55 | XMS_ITS | Encounter Summary ---
Author Organization [employer] Address [address] [place] [address] [address] [place] [address] Care Team Providers Care Heavy Equipment Operator Apprentice Name Role Phone Unavailable Primary Care Provider Unavailabl e Reason for Visit * Reason Comments Med Refill Encounter Details Date Type Department Care Team (Late st Contact Info) Description 09/16/2024 Refill [facility] [address], [place] [phone] Rudy Estes DDS [address], [place] [phone] Social History Tobacco Use Types Packs/Day Years [...]
== END 2025-06-22 17:52 | disposition home or self-care (01) ==
PROVIDERS: Physician Assistant Medical; Emergency Provider Emergency Medicine; PCP Family Medicine
DX: J10.1 Influenza due to other identified influenza virus with other respiratory manifestations (principal); R06.02 Shortness of breath; R51.9 Headache, unspecified; R10.9 Unspecified abdominal pain; R00.0 Tachycardia, unspecified; Z03.818 Encounter for observation for suspected exposure to other biological agents ruled out; J45.909 Unspecified asthma, uncomplicated
CPT/HCPCS: 71046; 80053; 83690; 83735; 85025; 85379; 87637; 93005; 99283

== ENCOUNTER → 2025-06-22 15:30 | Outpatient (BNV) | payer OTHER, SELFPAY | PROVIDERS: Emergency Provider Emergency Medicine; PCP Family Medicine; Visit Provider Internal Medicine Cardiovascular Disease | DX: R00.0 Tachycardia, unspecified (principal) | CPT/HCPCS: 93010 ==

== ENCOUNTER → 2025-06-22 15:32 | Outpatient (BNV) | payer OTHER, SELFPAY | PROVIDERS: PCP Family Medicine; Visit Provider Radiology Diagnostic Radiology | DX: R06.02 Shortness of breath (principal) | CPT/HCPCS: 71046 ==